=== PATIENT | female | born 1940 | race Caucasian/White ===

== ENCOUNTER 2024-11-15 11:57 | Outpatient (CLI) | payer OTHER, SELFPAY ==
--- OUTSIDE RECORDS SUMMARY | 2024-10-25 19:00 | XMS_ITS | Continuity of Care Document ---
Author Organization [facility] Address [address] [address] [place] [address] Phone Care Team Providers Care Block Splitter Operator Name Role Phone Paola MCKEON, Tenisha Unavailable Unavailable Allergies, Adverse Reactions, Alerts Substance Reaction Status Criticality Sulfa (Sulfonamide Antibiotics) Anaphylaxis Shock Acti ve No Information morphine Rash Active No Information WARFARIN SODIUM Bleeding Active No Informati on codeine Reaction Unknown Active No Informat ion Medications Medication Instructions Dosage Effective Dates (start - stop) Status Comments clopidogrel 75 mg tablet take 1 tablet by oral route every day as needed 75 MG - Active furosemide 20 mg tablet take 1 tablet by oral route every day as needed 20 MG - Active nystatin 50 million unit oral powder take ([id number]) by oral route 4 times every day in 4-6 ounces of water as needed - Active krill oil 1,000 mg-170 mg-50 mg-80 mg capsule - Active Multivitamin With Fluoride 0.5 mg chewable tablet - Active PreserVision AREDS 14,320 unit-226 mg-200 unit capsule - Active Vitamin D3 1,000 unit capsule take 1 Capsule by Oral route every day 1 Capsule - Active flumazenil 0.1 mg/mL intravenous solution - Active amoxicillin 250 mg/5 mL oral suspension take 5 milliliter by oral route every 8 hours 250 MG - Active ascorbic acid (vitamin C) 1,000 mg tablet take 1 by Oral route every day 1 - Active aspirin 81 mg tablet,delayed release take 1 tablet by oral route every day 81 MG - Active Procedures Procedure Date Subsqt Inpt Moderate Ugi Endo; W/bx 1/mx Init Inpt E&M Moderate Subsqt Hosp-da E&m Stable 15 M 20 Init Hosp-da E&m Mod Severity 0 Ugi Endo; Dx W/wo Collec Specm 20 Colonoscopy Flex; Dx (sep Pro) 20 Ugi Endo; W/bx 1/mx Offic/outpt E&m Estab Minor Ugi Endo; W/balloon Dilat Esop 17 Offic Cons New/estab Mod Advance Directives Directive Yes / No Effective Date File Name No Information Encounters Encounter Description Practice Location Reason(s) For Visit Diagnoses Date Provider Providers Copied on Encounter Subsqt Inpt Moderate [facility] [place], [address] [address], [place], [id number], [place] tel:[phone] [facility] No Information 5 Paola Steven. [address] [place] [address], [address], [id number], [place]. tel:[phone] Referring Provider: Tenisha Guevara EP TECH, [address] [place] [address], [facility] [place], [address] . tel:[phone] [facility], [address] [address], [place], [id number], [place] tel:[phone] [facility] No Information 5 Min MD Vazquez. [address] [place] [address], [facility] [address], [place], [address], [place]. tel:[phone] Referring Provider: George PARISH X, [address] [place] [address] [address], [facility] [place], [address] . tel:[phone] Init Inpt E&M Moderate [facility], [address] [address], [place], [id number], [place] tel:[phone] [facility] No Information 5 Constantin Harrington. [address] [facility], [address], [id number], [place]. [phone] Referring Provider: Janelle Crawford MD, [address] [place], [address]. tel:[phone] [facility], [address] [address], [place], [address], [place] tel:[phone] [facility] 0 Ibrahima Woods. [address] [place] [address], [id number], [place]. tel:[phone] Subsqt Hosp-da E&m Stable 15 M [facility], [address] [address], [place], [address], [place] tel:[phone] [facility] No Information 0 Ibrahima Woods. [facility] [address], [place], [id number], [place]. tel:[phone] Referring Provider: Zoey Maldonado DO, [address], [place], [address]. tel:[phone] Init Hosp-da E&m Mod Severity [facility], [address] [address], [place], [id number], [place] tel:[phone] [facility] No Information 0 Ibrahima Woods. [address] [facility], [facility] [address], [place], [address], [place]. tel:[phone] Referring Provider: Zoey Maldonado DO, [address], [place], [address]. tel:[phone] [facility], [address] [address], [place], [address], [place] tel:[phone] [facility] No Information 201 7 Randi Romero. [address] [place] [address], [address], [id number], [place]. tel:[phone] Referring Provider: Janelle Crawford MD, [address] [place] [address], [address]. tel:[phone] [facility], [address] [address], [place], [address], [place] tel:[phone] [facility] Esophageal dysphagia 7 No Information Offic/outpt E&m Estab Minor [facility], [address] [address], [facility] [place], [address], [place] tel:[phone] [facility] GI Symptoms or Concerns (chief complaint) Esophageal strictureDiet nery counseling and surveillanceE ssential (primary) hypertension 7 No Information Referring Provider: Janelle Crawford MD, [address] [place] [address], [address]. tel:[phone] [facility], [address] [address], [facility] [place], [address], [place] tel:[phone] [facility] No Information Jul- 7 Fran Marshall. [address] [place] [address], [facility] 500, [place], [place], [id number], [place]. tel:[phone] Referring Provider: Renetta Peters MD, [facility] 500, [place], [address] . tel:[phone] Offic Cons New/estab Mod [facility], [address] [address], [facility] [place], [address], [place] tel:[phone] [facility] GI Symptoms or Concerns (chief complaint) Esophageal dysphagiaDiet nery counseling and surveillanceE ssential (primary) hypertension 7 Fidencio Oconnor. [facility], [facility] 500, [place], [place], [id number], [place]. tel:[phone] Referring Provider: Janelle Crawford MD, [address] [place] [address], [address]. tel:[phone] Family History Family Member Type Diagnosis Age At Onset Daughter Problem (finding) Mother Problem (finding) diabetes mellitus type 2 Father Problem (finding) malignant neoplasm of l dianne Brother Problem (finding) Alive and well Sister Problem (finding) Alive and well Daughter Problem (finding) Hepatitis C Immunizations Vaccine Date Status Comments Influenza, injectable, quadr ivalent, preservative free, 3 yrs or older administered Source : Other Provider Pneumococcal conjugate PCV 13 administere d Source: Other Provider Pneumo (2 yrs or older)(PPV) administered Source: Other Provider Payers Payer name Insurance type Covered green party ID Authorjoaquina erick(s) Jacki [facility] 16 [id number] Social History Type Description Quantity Date Captured Comments Sex Female Smoking Status No Information Chief Complaint And Reason For Visit No Information Reason For Referral Reason For Referral No Information Plan Of Treatment Date Type Action Status Goal Lifestyle education regardin g diet completed Goal Lifestyle education regardin g diet completed Referral Ordered: CT Enterography WITHOUT And WITH Contrast Appointment date/timeframe: 11/27/2019 ordered Referral Ordered: EGD With Dilation Appointment date/timeframe: 07/27/2016 ordered History Of Present Illness Encounter Date Complaint History Of Prese nt Illness GI Symptoms or Concerns Ms. Ming dacosta is a very pleasant 75-year-old female who presents in followup regarding dysphagia.She was last seen in the office in July [address] Nicolas. At that time, she was having progressive dysphagia symptoms, especially to pills and solid foods. This has been going on for over four years. She apparently did see an global supply chain director and did have a laryngoscope completed, however, those records are not available. 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 There were no obvious mucosal irregularity or ulceration. There was an episode of coughing with aspiration of contrast during the esophagram and therefore, she had a video swallow with speech done and they did not see any asp GI Symptoms or Concerns This is a 75-year-old woman who presents with chronic dysphagia. She reports symptoms initially developed in 2012. She apparently underwent some evaluation locally, although surprisingly enough was never recommended to have endoscopy. She believes she may have had an esophagram, although I do not have those records. She developed dysphagia to pills initially, but then now it has not been increasing in frequency and with more and more foods and medications. She reports seeing an global supply chain director at one point who said she did not have any problems. They apparently did a laryngoscopy. She has reduced oral intake and has lost about five pounds in the past two weeks. There is no bleeding or heartburn. She has never had significant reflux issues. 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 She was treated with Plavix for three months, but has since stopped it. She is not on Functional Status Date Functional Assessmen t No Information Instructions Date Instruction Additional Infor travis EGD With Dilation Related to Dys phagia, pharyngoesophageal phase EGD With Dilation Related to Dys phagia, pharyngoesophageal phase Trouble swallowing h as improved after EGD with dilation. This is great. Please let us know if symptoms return.Please follow up with PCP regarding collar bone Related to Esophageal stricture Lifestyle education regarding di et Related to Dietary counseling and surveillance We will proceed with endoscopy at the hospital given her morbid obesity and her comorbidities. We discussed the possibility, given the cervical narrowing that is scoped and may be difficult to pass. I do not feel that there is enough evidence for a Zenker's to contraindicate endoscopy at this point. If we are unable to pass a regular endoscope through this area, we may have to reschedule with the pediatric endoscope, or we could consider fluoroscopy at the time of the exam to help with visualization. We will take biopsies of anything that is concerning and then perform a dilation if indicated. I will arrange for followup appointment in clinic to review the results and any further testing. We discussed that if there are some abnormalities that warrant CT imaging, that would be reasonable with extension into the neck, given the clavicular finding on exam and I also asked that she inform her pharmacist about her swallowing issues so that her medications can be crushed or given in liquid form if possible. Related to Esophageal dysphagia Lifestyle education regarding di et Related to Dietary counseling and surveillance EGD With Dilation Related to Dys phagia, pharyngoesophageal phase Assessments Type Assessment Date No Information Patient Care Teams Name Effective Dates (start - stop) Status Members No Information
--- OUTSIDE RECORDS SUMMARY | 2024-11-17 00:17 | XMS_ITS | Clinical Summary ---
Author Organization [facility] Address [address] [place] [address] Care Team Providers Care Materials Engineering Technician Name Role Phone Janelle Crawford MD Primary Care Provider + [phone] Hailee Mclean RN Unavailable [facility], [place] Unavailable Loida Carrillo RN Unavailable [facility], [place] Unavailable Allergies Active Allergy Reactions Criticality Noted Date [...] once daily. 10/31/19 25 Active vit C-vit D-tgxctk-fsnu ox-lutein (PRESERVISION) 226-200-5-0.8 qv-trmr-xp-mg cap Take 1 capsule by mouth once [...] she underwent prior gastric bypass, Geovanna-en-Y at [facility] in the 1979's. -per chart review, [...] Overview (06/01/2023): -s/p Geovanna-en-Y gastric bypass in [address] [place] [address] Iron deficiency anemia 02/26/202106/19 Iron deficiency anemia [...] Encounters Date Type Department Care Team Description 11/16/19 25 Office Visit [facility] [address] [place] [phone] Treat, Viviane Trujillo DO Telehealth ( encounter. [place]. ) 11/08/19 25 Lab Requisition [facility] [phone] Unknown, Doctor 11/07/19 25 Home Care Visit [facility] [address] [place] [phone] Hanh Horn RN CARE COORDINATION 10/26/19 25 10:38 AM CDT - 10/26/19 25 11:10 AM CDT Surgery [facility] [address] [place], [place] [id number] George Stuart MD ESOPHAGOGASTRODUODENOSCOPY WITH BIOPSY 10/26/19 25 10:24 AM CDT Anesthesia Event [facility] [address] [place] [address] Khadra Merchant MD Zimmerman, Anna A, CRNA 10/25/19 25 Home Care Visit [facility] [address] [place] [address] Hanh Horn RN SN - OASIS TRANSFER 10/24/19 25 1:00 AM CDT - 10/31/19 25 1:30 PM CDT Hospital Encounter [facility] [address] [place] [address] [facility], [facility] Hospitalists Of [facility], MD Sg Sultana, MD Deion Aguilar, Ioana Leary MD Deep vein thrombosis (DVT) of proximal lower extremity, unspecified chronicity, unspecified laterality (HC) (Primary Dx); Weight loss, unintentional; Fungal esophagitis; Esophageal stenosis Discharge Disposition: Detention Facility 10/24/19 Home Care Visit [facility] [address] [place] [phone] Hanh Horn RN CARE TRANSITION NOTE 10/23/19 7:28 PM CDT - 10/23/19 11:52 PM CDT Emergency [facility] [address] [place] [address] Susie Bang PA Katzung, Sara Cazares MD Dysphagia, unspecified type (Primary Dx); Hypokalemia Discharge Disposition: Short Term/PPS Hosp 10/23/19 Travel 10/21/19 Telephone [facility] [address] [place] [address] Janelle Crawford MD Error-please disregard 10/21/19 Telephone [facility] [address] [place] [address] Joe Elliott, CALIBRATION LABORATORY TECHNICIAN Home Care (Worsening Dysphagia ) 10/20/19 12:15 PM CDT Home Care Visit [facility] [address] [place] [phone] Joe Elliott, CALIBRATION LABORATORY TECHNICIAN CALIBRATION LABORATORY TECHNICIAN - INITIAL ASSESSMENT 10/18/19 2:30 PM CDT Home Care Visit [facility] [address] [place] [phone] Patricia Tavarez, PT PT - ZAX-QSGI-LVPT ASSESSMENT 10/18/19 12:30 PM CDT Home Care Visit [address] [phone] Hanh Horn RN SN - HOME VISIT 10/14/19 Home Care Visit [address] [phone] Paula Cole, PT CARE COORDINATION 05/16/20 25 Nurse Triage [facility] [address] [place] [address] Janelle Crawford MD Appointment 10/13/19 25 Home Care Visit [facility] [address] [place] [address] Paula Cole PT CARE COORDINATION 10/12/19 25 1:45 PM CDT Office Visit [address] [phone] Janelle Crawford MD Hospital F/U 10/12/19 25 Travel 10/12/19 25 Home Care Visit [facility] [address] [place] [phone] Hanh Horn, STEFANIE CARE COORDINATION 10/11/19 25 11:30 AM CDT Home Care Visit [facility] [address] [place] [address] Hanh Horn, RN SN - OASIS START OF CARE 10/11/19 25 Telephone [facility] [address] [place] [address] Hanh Horn, body die maker (Leg edema) 10/11/19 25 Plan of Care Documentation [facility] [address] [place] [phone] 10/10/19 25 Transcribe Orders [facility] [address] [place] [phone] Jose Luis Lozano DO 10/10/19 25 Patient Outreach [address] [phone] Ella Morrison, RN Primary RN Care Management (Hospital DC: 10/07/24/LACE: 64/Dysphagia ); Hospital F/U 10/06/19 25 11:31 PM CDT - 10/08/19 12:58 PM CDT Hospital Encounter [facility] [address] [place] [address] [facility], [facility] Hospitalists Of [place], MD Hallie Small Krishna Kumar K[place], MBBS Residents, A2 S/P TAVR (transcatheter aortic valve replacement) (Primary Dx); Dysphagia, unspecified type; Weight loss, unintentional Discharge Disposition: Home Health 10/06/19 12:06 PM CDT - 10/06/19 10:30 PM CDT Emergency [facility] [address] [facility] [place] [address] Adrian Jose MD Hospitalist, [facility] Jean-Baptiste, Dmitriy Austin, Tricia Parra DO Dysphagia, unspecified type (Primary Dx) Discharge Disposition: Short Term/PPS Hosp 10/06/19 Travel 09/16/19 Telephone [facility] [address] [place] [address] Janelle Crawford MD Results 09/14/19 9:35 AM CDT Office Visit [facility] [address] [place] [address] Janelle Crawford MD Leg Swelling 09/14/19 25 Travel 09/02/19 Nurse Triage [facility] [address] [place] [address] Janelle Crawford MD Leg Swelling (Bilateral severe ) 09/02/[address] [place] [address] Janelle Crawford MD Error-please disregard 08/30/19 Telephone [facility] [address] [place] [address] Tasha Christian DO Chart Review 08/25/19 25 2:10 PM CDT Office Visit [address] [place] [address] Janelle Crawford MD Hospital F/U (ED DOS: 08/16/2024) 08/25/19 25 Travel from Last 3 Months Immunizations [...] on file Legal Sex Female 5:23 AM CENTER CONSULTANT Gender Identity Not on file Sexual Orientation Not on file 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 Not on file Not on file Not [...] CDT Office Visit [facility] [address] [place] [phone] Norman Mckeon MD [address] [place] [address] 12/14/2024 12:30 PM CDT Office Visit [facility] [address] [place] [address] Vivek Cox MD [address] [place] [address] 12/14/2024 3:00 PM CDT Orders Only [facility] [address] [place] [address] 02/27/2025 Cardiac Device Check [facility] [phone] Health Maintenance Due Date Last Done Comments [...] this topic Medical Devices Implanted Type Area Analyzer Sales Device Identifier Shelf Expiration Date Model / Serial / Lot Dual Chamber Pacemaker Implanted:2015 by Virgil Hernandez MD (Quantity not on file) Standard Pacemaker Medtronic ADAPTA [id number] / [id number] / Valve Aortic 26mm Nicolle 3 Transcatheter Sys Commander - [id number] Implanted:Qty: 1 on 02/05/2016 by Manish Flores MD at [facility] Aortic Valve [employer] Paul 10/16/2016 [id number]# / [id number] / Procedures Procedure Name Priority Date/Time Associated [...] 11:10 AM CDT STEINER (dyspnea on exertion) XR DXA BONE DENSITY 2 SITES AXIAL Routine 03/04/2022 2:22 PM CDT Menopause from Last 3 Months or Most Recently Relevant to Health Maintenance Results * (ABNORMAL) CBC WITH AUTO DIFFERENTIAL (11/08/2024 8:02 AM CDT) Only the most recent of2 resultswithin the time period is included. WHITE BLOOD COUNT 10.7 4.5 - 11.0 thou/cu mm 11/08/2024 9:03 AM [facility] RED BLOOD COUNT 4.30 4.00 - 5.20 mil/cu mm 11/08/2024 9:03 AM [facility] HEMOGLOBIN 13.5 12.0 - 16.0 g/dL 11/08/2024 9:03 AM [facility] HEMATOCRIT 40.9 33.0 - 51.0 % 11/08/2024 9:03 AM [facility] MCV 95 80 - 100 fL 11/08/2024 9:03 AM [facility] MCH 31.4 26.0 - 34.0 pg 11/08/2024 9:03 AM [facility] MCHC 33.0 32.0 - 36.0 g/dL 11/08/2024 9:03 AM [facility] RDW 15.3 11.5 - 15.5 % 11/08/2024 9:03 AM [facility] PLATELET COUNT 54(L) 140 - 440 thou/cu mm 11/08/2024 9:03 AM [facility] MPV 10.9 6.5 - 11.0 fL 11/08/2024 9:03 AM [facility] % NEUT 74.9 % 11/08/2024 9:03 AM [facility] % LYMPH 19.5 % 11/08/2024 9:03 AM [facility] % MONO 4.9 % 11/08/2024 9:03 AM [facility] % EOS 0.5 % 11/08/2024 9:03 AM [facility] % BASO 0.2 % 11/08/2024 9:03 AM [facility] ABSOLUTE NEUTROPHILS 8.0(H) 1.7 - 7.0 thou/cu mm 11/08/2024 9:03 AM [facility] ABSOLUTE LYMPHOCYTES 2.1 0.9 - 2.9 thou/cu mm 11/08/2024 9:03 AM [facility] ABSOLUTE MONOCYTES 0.5 <0.9 thou/cu mm 11/08/2024 9:03 AM [facility] ABSOLUTE EOSINOPHILS 0.1 <0.5 thou/cu mm 11/08/2024 9:03 AM [facility] ABSOLUTE BASOPHILS 0.0 <0.3 thou/cu mm 11/08/2024 9:03 AM [facility] Blood BLOOD SPECIMEN / Unknown Butterfly / Unknown 11/08/2024 8:02 AM CDT 11/08/2024 8:13 AM T us Doctor Unknown HEMATOLOGY Final Result [facility] [address] [place] [address] * (ABNORMAL) PLATELET ESTIMATE (11/08/2024 8:02 AM CDT) Only the most recent of12 resultswithin the time period is included. PLATELET ESTIMATE Platelets are clumped and appear decreased(A) Adequate, No estimate 11/08/2024 9:03 AM [facility] Blood BLOOD SPECIMEN / Unknown Butterfly / Unknown 11/08/2024 8:02 AM CDT 11/08/2024 8:13 AM CDT us Doctor Unknown HEMATOLOGY Final Result [facility] [address] [place] [address] * (ABNORMAL) BASIC METABOLIC PANEL (11/08/2024 8:02 AM CDT) Only the most recent of4 resultswithin the time period is included. SODIUM 139 136 - 145 mmol/L 11/08/2024 8:38 AM [facility] POTASSIUM 4.4 3.5 - 5.1 mmol/L 11/08/2024 8:38 AM [facility] CHLORIDE 106 98 - 107 mmol/L 11/08/2024 8:38 AM [facility] CO2,TOTAL 20(L) 22 - 29 mmol/L 11/08/2024 8:38 AM [facility] ANION GAP 13 5 - 18 11/08/2024 8:38 AM [facility] GLUCOSE 73 70 - 99 mg/dL 11/08/2024 8:38 AM [facility] CALCIUM 8.3(L) 8.8 - 10.4 mg/dL 11/08/2024 8:38 AM [facility] Comment: Reference ranges for this test were updated on 04/04/2024 to reflect our healthy population more accurately. Reference range changes are not retroactively applied to results, but previous results using the same methodology can be interpreted in the context of the new reference range. BUN 20 8 - 23 mg/dL 11/08/2024 8:38 AM [facility] CREATININE 0.67 0.50 - 0.90 mg/dL 11/08/2024 8:38 AM [facility] BUN/CREAT RATIO 30(H) 10 - 20 8:38 AM CDT [facility] eGFR 85(L) >90 mL/min/1. 73m2 11/08/2024 8:38 AM CDT [facility] Comment:As of 2021, eG FR is [...] Unknown CHEMISTRY Final Result Performing Organization Address City/[facility]/ZIP Co de Phone Number [facility] [address] [place] [address] * (ABNORMAL) PLATELET COUNT (10/30/2024 7:10 AM CDT) Only the most recent of9 resultswithin the time period is included. PLATELET COUNT 124(L) 140 - 440 thou/cu mm 10/30/2024 9:16 AM CDT [facility] MPV 10/30/2024 9:16 AM CDT [facility] Comment:Unable to be determi noe Blood BLOOD SPECIMEN / Unknown Butterfly / Unknown 10/30/2024 7:10 AM CDT 10/30/2024 7:39 AM CDT Bibiana Bettencourt MD HEMATOLOGY Final Res ult [facility] [address] [place] [address], * HEMOGLOBIN (10/30/2024 7:10 AM CDT) Only the most recent of8 resultswithin the time period is included. HEMOGLOBIN 13.2 12.0 - 16.0 g/dL 10/30/2024 9:16 AM CDT [facility] MCV 93 80 - 100 fL 10/30/2024 9:16 AM CDT [facility] Blood BLOOD SPECIMEN / Unknown Butterfly / Unknown 10/30/2024 7:10 AM CDT 10/30/2024 7:39 AM CDT us Bibiana Bettencourt MD HEMATOLOGY Final Res ult Performing Organization Address [facility] Co de Phone Number [facility] [address] [place] [address], [place] * (ABNORMAL) APTT (10/30/2024 7:10 AM CDT) Only the most recent of21 resultswithin the time period is included. APTT 69(H) 25 - 36 sec 10/30/2024 7:58 AM CDT [facility] Blood BLOOD SPECIMEN / Unknown Butterfly / Unknown 10/30/2024 7:10 AM CDT 10/30/2024 7:39 AM CDT Narrative [facility] - 10/30/2024 7:58 AM CDT Therapeutic Range: 59-89 seconds us Bibiana Bettencourt MD HEMATOLOGY Final Res ult Performing Organization Address [facility] Co de Phone Number [facility] [address] [place] [address], [place] * GLUCOSE METER (10/30/2024 6:30 AM CDT) Only the most recent of42 resultswithin the time period is included. GLUCOSE METER 78 65 - 100 mg/dL 10/30/2024 10:52 AM CDT [facility] Blood BLOOD SPECIMEN / Unknown 10/30/2024 6:30 AM CDT 10/30/2024 10:52 AM CDT us Bibiana Bettencourt MD CHEMISTRY Final Res ult Performing Organization Address [facility] Co de Phone Number [facility] [address] [place] [address], [place] * SCAN-CARDIAC STRIP (10/30/2024 2:01 AM CDT) us Scanner OTHER Final Result * (ABNORMAL) WBC AM (10/29/2024 12:04 PM CDT) Only the most recent of8 resultswithin the time period is included. WHITE BLOOD COUNT 12.5(H) 4.5 - 11.0 thou/cu mm 10/29/2024 3:[address] [facility] NRBC 0.0 % 10/29/2024 3:53 PM CDT [facility] ABS NRBC 0.0 thou /cu mm 10/29/2024 3:53 PM CDT [facility] Blood BLOOD SPECIMEN / Unknown Venipuncture / Unknown 10/29/2024 12:04 PM CDT 10/29/2024 12:55 PM CDT us Bibiana Bettencourt MD HEMATOLOGY Final Res ult [facility] [address] [place] [address], * SCAN-CARDIAC STRIP (10/29/2024 6:00 AM CDT) [...] LABORATORY Final Res ult Performing Organization Address City/[facility]/ZIP Co de Phone Number [facility] [address] [place] [address], * (ABNORMAL) Sodium AM (10/28/2024 8:33 AM CDT) Only the most recent of3 resultswithin the time period is included. SODIUM 133(L) 136 - 145 mmol/L 10/28/2024 9:09 AM CDT [facility] Blood BLOOD SPECIMEN / Unknown Line/Port / Unknown 10/28/2024 8:33 AM CDT 10/28/2024 8:45 AM CDT us Bibiana Bettencourt MD CHEMISTRY Final Res ult Performing Organization Address [facility] Co de Phone Number [facility] [address] [place] [address], * SCAN-CARDIAC STRIP (10/28/2024 12:58 AM CDT) [...] 10/27/24. EF 67% on 12/15/2023. AP 5.1%, CRUSHER AND BLENDER OPERATOR 0.4%. LRL at 50 bpm. Estimated 7.5 years battery longevity remaining. Indication for Pacemaker: AV Node dysfunction; new LBBB post TAVR Primary MD: Janelle Crawford MD Primary Radar Repairer: cL Emerson MD Implanting MD: Virgil Hernandez MD DEVICE DATA Analyzer Sales Medtronic: Model: Adapta ADDRL Implant Date 02/10/2016 LEAD DATA Atrial Lead: Analyzer Sales Medtronic: Model: 5076 - 45 cm Implant Date 02/10/2016 RV Lead: Analyzer Sales Medtronic: Model: 5076 - 52 cm Implant Date 02/10/2016 Visit [facility]: [facility] Reason For Evaluation: MD Request- low heart [...] months via [employer] (manual send) with annual [place] each September. Meri Torres, STEFANIE Nurse Clinician II I Pacemaker/ICD Clinic [phone] us Patel Delgado MD CARDIAC SERVICES OR D Final Result * SCAN-CARDIAC STRIP (10/27/2024 11:02 AM CDT) us Scanner OTHER Final Result * (ABNORMAL) TROPONIN T (HS) ONE TIME (10/27/2024 9:53 AM CDT) Only the most recent of2 resultswithin the time period is included. TROPONIN T HS 52(H) 6-10 ng/L ng/L 10/27/2024 10:[address] [facility] Blood BLOOD SPECIMEN / Unknown Non-Lab Venipuncture / Unknown 10/27/2024 9:53 AM CDT 10/27/2024 10:02 AM CDT Narrative [facility] - 10/27/2024 10:28 AM CDT [...] MD CHEMISTRY Final Result Performing Organization Address City/[facility]/ZIP Co de Phone Number [facility] [address] [place] [address], [place] * Lactate, Venous - GUIDE DELEGATE (10/27/2024 9:53 AM CDT) Only the most recent of2 resultswithin the time period is included. [facility] LACTATE,VENOUS 1.8 0.5 - 2.0 mmol/L 10/27/2024 10:26 AM CDT [facility] Blood BLOOD SPECIMEN / Unknown Non-Lab Venipuncture / Unknown 10/27/2024 9:53 AM CDT 10/27/2024 10:02 AM CDT Lisette Carson MD CHEMISTRY Final Resul t Performing Organization Address [facility]/ZIP Co de Phone Number [facility] [address] [place] [address], [place] * AMMONIA (10/27/2024 9:53 AM CDT) Only the most recent of2 resultswithin the time period is included. Pathologist [facility] AMMONIA 28 16 - 60 umol/L 10/27/2024 10:26 AM CDT [facility] Blood BLOOD SPECIMEN / Unknown Non-Lab Venipuncture / Unknown 10/27/2024 9:53 AM CDT 10/27/2024 10:02 AM CDT Narrative [facility] - 10/27/2024 10:26 AM CDT 1. Sulfasalazine and its metabolite Sulfapyridine at therapeutic concentrations may lead to falsely low results. 2. Temozolomide and its metabolite MTIC may lead to falsely elevated results, and its metabolite AIC may lead to falsely low results. us Lisette Carson MD CHEMISTRY Final Resul t [facility] [address] [place] [address], * (ABNORMAL) Arterial Blood Gas - GUIDE DELEGATE (10/27/2024 9:44 AM CDT) PH, ARTERIAL 7.44 7.35 - 7.45 10/27/2024 10:04 AM CDT [facility] PCO2, ARTERIAL 35 32 - 45 mmHg 10/27/2024 10:04 AM [facility] PO2, ARTERIAL 121(H) 83 - 108 mmHg 10/27/2024 10:04 AM [facility] HCO3, ARTERIAL 24 21 - 28 mmol/L 10/27/2024 10:04 AM [facility] BASE EXCESS, ARTERIAL 0.1 -2.0 - 3.0 10/27/2024 10:04 AM [facility] O2 SATURATION, ARTERIAL 100(H) 94 - 98 % 10/27/2024 10:04 AM T [facility] INSPIRED O2 6 10/27/2024 10:04 AM [facility] Comment: Unit of Measure: Liters (L) if <=20; Percent (%) if >20 This is an appended report. These results have been appended to a previously final verified report. PATIENT TEMPERATURE 37.0 Degrees C 10/27/2024 10:04 AM CDT [facility] Blood ARTERIAL BLOOD SPECIMEN / Unknown Non-Lab Venipuncture / Unknown 10/27/2024 9:44 AM CDT 10/27/2024 9:51 AM CDT us Bibiana Bettencourt MD CHEMISTRY Edited Re sult - Final Performing Organization Address City/[facility] Co de Phone Number [facility] [address] [place] [address], [place] * 12 Lead EKG - GUIDE DELEGATE (10/27/2024 9:37 AM CDT) Only the most recent of2 resultswithin the time period is included. Interpretation [...] NOW QTc 405 ms BEYOND NOW P Colony 37 degrees BEYOND NOW R Colony -49 degrees BEYOND NOW T Colony 33 degrees BEYOND NOW 10/27/2024 9:37 AM CDT 11/01/2024 12:25 PM CDT us Bibiana Bettencourt MD EKG ORD Final Res ult Performing Organization Address City/[facility] Co de Phone Number BEYOND NOW [place], [place] * POTASSIUM (10/27/2024 7:42 AM CDT) Only the most recent of9 resultswithin the time period is included. POTASSIUM 3.7 3.5 - 5.1 mmol/L 10/27/2024 8:[address] [facility] Blood BLOOD SPECIMEN / Unknown Venipuncture / Unknown 10/27/2024 7:42 AM CDT 10/27/2024 7:48 AM CDT us Bibiana Bettencourt MD CHEMISTRY Final Res ult Performing Organization Address City/[facility]/ZIP Co de Phone Number [facility] [address] [place] [address], [place] * MAGNESIUM (10/27/2024 7:42 AM CDT) Only the most recent of8 resultswithin the time period is included. MAGNESIUM 1.6 1.6 - 2.4 mg/dL 10/27/2024 8:15 AM CDT [facility] Blood BLOOD SPECIMEN / Unknown Venipuncture / Unknown 10/27/2024 7:42 AM CDT 10/27/2024 7:48 AM CDT Bibiana Bettencourt MD CHEMISTRY Final Res ult Performing Organization Address [facility] Co de Phone Number [facility] [address] [place] [address], [place] * (ABNORMAL) COMP METABOLIC PANEL (10/27/2024 7:42 AM CDT) SODIUM 132(L) 136 - 145 mmol/L 10/27/2024 10:07 AM CDT [facility] POTASSIUM 3.7 3.5 - 5.1 mmol/L 10/27/2024 10:07 AM CDT [facility] CHLORIDE 100 98 - 107 mmol/L 10/27/2024 10:07 AM CDT [facility] CO2,TOTAL 22 22 - 29 mmol/L 10/27/2024 10:07 AM CDT [facility] ANION GAP 10 5 - 18 10/27/2024 10:07 AM CDT [facility] GLUCOSE 106(H) 70 - 99 mg/dL 10/27/2024 10:07 AM CDT [facility] CALCIUM 7.4(L) 8.8 - 10.4 mg/dL 10/27/2024 10:07 AM CDT [facility] Comment: Reference ranges for this test were updated on 04/04/2024 to reflect our healthy population more accurately. Reference range changes are not retroactively applied to results, but previous results using the same methodology can be interpreted in the context of the new reference range. BUN 14 8 - 23 mg/dL 10/27/2024 10:07 AM T [facility] CREATININE 0.72 0.50 - 0.90 mg/dL 10/27/2024 10:07 AM T [facility] BUN/CREAT RATIO 19 10 - 20 10:07 AM T [facility] eGFR 82(L) >90 mL/min/1. 73m2 10/27/2024 10:07 AM [facility] Comment:As of 2021, eG FR is calculated by the CKD-EPI creatinine equation without race adjustment. eGFR can be influenced by muscle mass, exercise, and diet. The reported eGFR is an estimation only and is only applicable if the renal function is stable. ALBUMIN 2.1(L) 4.0 - 4.9 g/dL 10/27/2024 10:07 AM T [facility] PROTEIN,TOTAL 3.8(L) 6.0 - 8.0 g/dL 10/27/2024 10:07 AM T [facility] BILIRUBIN,TOTAL 0.7 0.0 - 1.2 mg/dL 10/27/2024 10:07 AM T [facility] ALK PHOSPHATASE 63 35 - 104 IU/L 10/27/2024 10:07 AM [facility] ALT (SGPT) 20 10 - 35 IU/L 10/27/2024 10:07 AM T [facility] LABORATORY AST (SGOT) 27 10 - 35 IU/L 10/27/2024 10:07 AM T [facility] Blood BLOOD SPECIMEN / Unknown Venipuncture / Unknown 10/27/2024 7:42 AM CDT 10/27/2024 7:48 AM CDT us Lisette Carson MD CHEMISTRY Final Resul t Performing Organization Address City/[facility]/ZIP Co de Phone Number [facility] [facility] [address] [place] [address], [place] * EXTRA TUBE LIGHT GREEN (10/25/2024 12:52 PM CDT) Blood BLOOD SPECIMEN / Unknown Butterfly / Unknown 10/25/2024 12:52 PM CDT 10/25/2024 12:58 PM CDT us Doctor Unknown LABORATORY Final Result Performing Organization Address City/[facility] Co de Phone Number [facility] [address] [place] [address], [place] * PATH TISSUE EXAM (10/25/2024 10:35 AM CDT) Case Report Pathology Report Case: [id number] Authorizing Provider: George Stuart MD Collected: 10/25/2024 1035 Ordering Location: [facility] Received: 10/25/2024 1108 [facility] Pathologist: Natalya Villar MD Specimen: Esophagus, esophgus biopsy 10/27/2024 8:38 AM CDT [facility] ENTRAL LABORATORY Final Diagnosis A) ESOPHAGUS, BIOPSY: 1. Margarita esophagitis 2. 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 Negative for reflux changes and eosinophilic esophagitis 4. Negative for columnar mucosa 10/27/2024 8:38 AM CDT [facility] ENTRAL LABORATORY at 0838 CDT Clinical Information Dysphagia. Upper GI endoscopy showed likely Margarita esophagitis. 10/27/2024 8:38 AM CDT [facility] ENTRAL LABORAT[facility] Gross Description A) Received in formalin is a lott mucosal fragment measuring 2 mm in greatest dimension, which is entirely submitted in one cassette. It is labeled with the patient's name and designated esophagus biopsy. Samanthalila Maya 10/25/2024 2:42 PM 10/27/2024 8:38 AM CDT [facility] ENTRAL LABORATORY Microscopic Description The final diagnosis is based on microscopic examination of appropriate sections of all specimens. 10/27/2024 8:38 AM CDT [facility]-C ENTRAL LABORATORY Additional Information Interpreted at [facility], Central Laboratory - [address] [facility] [address], [place] [address] 10/27/2024 8:[address] [facility] LABORATORY-C ENTRAL LABORATORY Tissue SPECIMEN FROM ESOPHAGUS / Unknown 10/25/2024 10:35 AM CDT 10/25/2024 11:08 AM CDT us George Stuart MD PATHOLOGY/CYTOLOGY Final Re sult [facility]-CENTRAL LABORATORY [address] [place] [address], [place] * ENDOSCOPY (10/25/2024 10:08 AM CDT) 10/25/2024 10:0 8 AM CDT Narrative Transcriptions George Stuart MD - 10/25/2024 10:41 AM CDT [facility] Patient Name: Kajal Francois Procedure Date: 10/25/2024 Gender: Female Date of : 1940 Admit Type: Inpatient Procedure: Upper GI endoscopy Proceduralist: George Stuart MD - [facility] Indications/Pre-Op Diagnosis: Dysphagia Medications: Propofol per Anesthesia Procedure Description: Risk of bleeding, infection, perforation, need for surgery and alternatives discussed. The endosocpe [id number] was introduced through the mouth, and advanced [...] 7.32 - 7.43 10/24/2024 10:05 PM CDT [facility] TRAL LABORATORY PCO2, VENOUS 37(L) 41 - 51 mmHg 10/24/2024 10:05 PM CDT [facility] LAB[facility] PO2, VENOUS 58(H) 35 - 40 mmHg 10/24/2024 10:05 PM CDT [facility] TRAL LAB[facility] HCO3,VENOUS 26 22 - 29 mmol/L 10/24/2024 10:05 PM CDT [facility] TRAL LAB[facility]AT[facility] BASE EXCESS, VENOUS, POCT 1.8 -2.0 - 3.0 10/24/2024 10:05 PM CDT [facility] TRAL LABORATORY O2 SATURATION, VENOUS 93(H) 70 - 75 % 10/24/2024 10:05 PM CDT [facility] LAB[facility] PATIENT TEMPERATURE 37.0 Degrees C 10/24/2024 10:05 PM CDT [facility] TRAL LAB[facility]ATORY Blood VENOUS BLOOD SPECIMEN / Unknown Diversion Device / Unknown 10/24/2024 9:51 PM CDT 10/24/2024 9:56 PM CDT us Bibiana Bettencourt MD CHEMISTRY Final Res ult [facility] [address] [place] [address], [place] * CT HEAD BRAIN WO (10/24/2024 [...] result of the Century Cures Act, medical imaging exams and procedure [...] with bilateral lens implants. Procedure Note Sindy Buckley, - 10/24/2024 For Patients: As a result [...] See Comment U/mL 10/24/2024 7:03 PM CDT [facility] TRAL LABORATORY Blood BLOOD SPECIMEN / Unknown Diversion Device / Unknown 10/24/2024 6:19 PM CDT 10/24/2024 6:31 PM CDT Narrative [facility]CENTRAL LABORATORY - 10/24/2024 7:03 PM CDT [facility]FH [...] 0.15 - 0.25 U/mL Critical: >1.00 U/mL us Bibiana Bettencourt MD HEMATOLOGY Final Res ult Performing Organization Address City/[facility]/ZIP Co de Phone Number [facility] [address] [address], [place] * (ABNORMAL) Creatinine AM (10/24/2024 7:36 AM CDT) Only the most recent of3 resultswithin the time period is included. Pathologist [facility] eGFR 85(L) >90 mL/min/1.7 3m2 10/24/2024 8:45 AM CDT [facility] Comment:As of 2021, eG FR is calculated by the CKD-EPI creatinine equation without race adjustment. eGFR can be influenced by muscle mass, exercise, and diet. The reported eGFR is an estimation only and is only applicable if the renal function is stable. CREATININE 0.67 0.50 - 0.90 mg/dL 10/24/2024 8:45 AM CDT [facility] Blood BLOOD SPECIMEN / Unknown Butterfly / Unknown 10/24/2024 7:36 AM CDT 10/24/2024 8:17 AM CDT us Bibiana Bettencourt MD CHEMISTRY Final Res ult Performing Organization Address City/[facility]/ZIP Co de Phone Number [facility] [address] [place] [address], [place] * (ABNORMAL) CBC W PLT NO DIFF (10/23/2024 4:20 AM CDT) Only the most recent of2 resultswithin the time period is included. [facility] WHITE BLOOD COUNT 10.5 4.5 - 11.0 thou/cu mm 10/23/2024 5:02 AM T [facility] TRAL LABORATORY RED BLOOD COUNT 3.53(L) 4.00 - 5.20 mil/cu mm 10/23/2024 5:02 AM [facility] TRAL LABORATORY HEMOGLOBIN 11.6(L) 12.0 - 16.0 g/dL 10/23/2024 5:02 AM [facility] TRAL LABORATORY HEMATOCRIT 33.6 33.0 - 51.0 % 10/23/2024 5:02 AM [facility] TRAL LABORATORY MCV 95 80 - 100 fL 10/23/2024 5:02 AM T [facility] TRAL LAB[facility]ATORY MCH 32.9 26.0 - 34.0 pg 10/23/2024 5:02 AM [facility] TRAL LAB[facility] MCHC 34.5 32.0 - 36.0 g/dL 10/23/2024 5:02 AM [facility] TRAL LAB[facility]AT[facility] RDW 14.3 11.5 - 15.5 % 10/23/2024 5:02 AM [facility] TRAL LAB[facility] PLATELET COUNT 205 140 - 440 thou/cu mm 10/23/2024 5:02 AM T [facility] TRAL LAB[facility] MPV 11.6(H) 6.5 - 11.0 fL 10/23/2024 5:02 AM [facility] TRAL LAB[facility] NRBC 0.0 % 10/23/2024 5:02 AM T [facility] ABS NRBC 0.0 thou /cu mm 10/23/2024 5:02 AM [facility] TR[facility] Blood BLOOD SPECIMEN / Unknown Venipuncture / Unknown 10/23/2024 4:20 AM CDT 10/23/2024 4:26 AM T us George Carroll MD HEMATOLOGY Final Res ult [facility] [address] [place] [address], [place] * PROTIME-INR (10/23/2024 4:20 AM CDT) Only the most recent of2 resultswithin the time period is included. INR 1.1 <1.3 10/23/2024 4:43 AM CDT [facility] PROTIME 12.4 10.6 - 12.4 sec 10/23/2024 4:43 AM CDT [facility] Blood BLOOD SPECIMEN / Unknown Venipuncture / Unknown 10/23/2024 4:20 AM CDT 10/23/2024 4:26 AM CDT Narrative [facility] - 10/23/2024 4:43 AM CDT Therapeutic [...] seconds if the patient is on UFH. George Carroll MD HEMATOLOGY Final Res ult [facility] [address] [place] [address], [place] * [place] VENOUS LOWER EXTREMITY BILATERAL [...] 8:16 PM CDT) Only the most recent of2 resultswithin the time period is included. ACANTHOCYTES Few 10/22/2024 9:57 PM CDT [facility] ELLIPTOCYTES Few 10/22/2024 9:57 PM CDT [facility] RBC COMMENT Present(A) RBC morphology appears normal, RBC morphology within normal limits for newborns. 10/22/2024 9:57 PM CDT [facility] WBC REACTIVE LYMPHS Present 10/22/2024 9:57 PM CDT [facility] Blood BLOOD SPECIMEN / Unknown Butterfly / Unknown 10/22/2024 8:16 PM CDT 10/22/2024 8:22 PM CDT us Susie LÓPEZ HEMATOLOGY Final R esult [facility] [address] [place] [address] * ECHO TTE COMPLETE WO CONTRAST (10/06/2024 10:53 AM CDT) Pathologist [facility] AORTIC VALVE MEAN PG 14 mmHg EJECTION [...] Tech: PM Referring MD: RAMIN OSBORNE Site: [facility] Reading Location: W Patient Location: Inpatient. Procedure: 2D, Color Doppler [...] . This study was interpreted by an [facility] accredited facility. Final Procedure Note Redd Gallagher MD - 10/06/2024 ECHOCARDIOGRAM KAJAL FRANCOIS : 1940 83 years Study Date: 10/06/2024 9:50:25 AM Gender: F BP: 155/72 mmHg Height: 154.00 cm BSA: 1.68 m Weight: 70.00 kg Tech: PM Referring MD: RAMIN OSBORNE Site: [facility] Reading Location: [facility] Patient Location: Inpatient. Procedure: 2D, Color Doppler [...] . This study was interpreted by an [facility] accredited facility. Final us Ramin Osborne MD ECHO ORD Final Res ult * PACER TOMMIE DUAL CHAMBER WO REPROG (10/06/2024 9:19 AM CDT) Narrative Virgil Hernandez MD - 10/06/2024 9:19 AM CDT Virgil Hernandez MD 10/13/2024 10:43 AM PACEMAKER EVALUATION REPORT 10/06/2024 Summary: Normal pacemaker function. Lead trends stable. No true VT detections. EF 67% on 12/15/2023. AP 21.7%, CRUSHER AND BLENDER OPERATOR 0.3%. Estimated 7.5 years battery longevity remaining. Indication for Pacemaker: AV Node dysfunction; new LBBB post TAVR Primary MD: Janelle Crawford MD Primary Radar Repairer: Lc Emerson MD Implanting MD: Virgil Hernandez MD DEVICE DATA Analyzer [employer] Medtronic: Model: Adapta ADDRL Implant Date 02/10/2016 LEAD DATA Atrial Lead: Analyzer [employer]onic: Model: 5076 - 45 cm Implant Date 02/10/2016 RV Lead: Analyzer [employer]: Model: 5076 - 52 cm Implant Date 02/10/2016 Visit location: [facility] Reason For Evaluation: Request MEASUREMENTS Atrial Sensing - P wave: [...] Routine follow up: Every 4 months via InvenSense (manual send) with annual [place]ahoe each September. Baljit Jo RN Nurse Clinician II [facility] Pacemaker/ICD Clinic [phone] Virgil Hernandez MD CARDIAC SERVICES ORD Fin al Result * PHOSPHORUS (10/06/2024 12:52 AM CDT) PHOSPHORUS 3.3 2.5 - 4.5 mg/dL 10/06/2024 10:[address] [facility] LAB[facility]AT[facility] Blood BLOOD SPECIMEN / Unknown Venipuncture / Unknown 10/06/2024 12:52 AM CDT 10/06/2024 1:06 AM CDT Jose Luis Lozano DO CHEMISTRY Final Result [facility] LABORATORY-CENTRAL LABORATORY [address] [place] [address], [place] * (ABNORMAL) UA W/ SEDIMENT EXAM REFLEXED PER CRITERIA (10/05/2024 2:55 PM CDT) COLOR Yellow Yellow Color 10/05/2024 3:03 PM [facility] CLARITY Clear Clear Clarity 10/05/2024 3:03 PM [facility] SPECIFIC GRAVITY,URINE >=1.030(A) 1.010, 1.015, 1.020, 1.025 10/05/2024 3:03 PM [facility] PH,URINE 5.5 6.0, 7.0, 8.0, 5.5, 6.5, 7.5, 8.5 10/05/2024 3:03 PM [facility] UROBILINOGEN, QUALITATIVE Normal Normal EU/dl 10/05/2024 3:03 PM [facility] PROTEIN, URINE Negative Negative mg/dL 10/05/2024 3:03 PM [facility] GLUCOSE, URINE Negative Negative mg/dL 10/05/2024 3:03 PM [facility] KETONES,URINE Negative Negative mg/dL 10/05/2024 3:03 PM [facility] BILIRUBIN,URI NE Negative Negative 10/05/2024 3:03 PM [facility] OCCULT BLOOD,URINE Negative Negative 10/05/2024 3:03 PM [facility] NITRITE Negative Negative 10/05/2024 3:03 PM [facility] LEUKOCYTE ESTERASE Negative Negative 10/05/2024 3:03 PM [facility] Urine URINE SPECIMEN / Unknown Non-Blood / Unknown 10/05/2024 2:55 PM CDT 10/05/2024 3:00 PM CDT us Adrian Jose MD URINE Final Result Performing Organization Address [facility]/ZIP Co de Phone Number [facility] [address] [place] [address] * COVID-19 MOLECULAR (10/05/2024 2:51 PM CDT) Pathologist [facility] COVID 19 ALLSUBHA MOLECULAR Not detected Not detected 10/05/2024 3:15 PM CDT [facility] TESTING LABORATORY [facility] 10/05/2024 3:15 PM CDT [facility] Comment:Specimen submitted t o [facility] for testing. Other SPECIMEN FROM NASOPHARYNGEAL STRUCTURE / Unknown Non-Blood / Unknown 10/05/2024 2:51 PM CDT 10/05/2024 2:54 PM CDT Adrian Jose MD MICROBIOLOGY Final Result [facility] [address] [place] [address] * INFLUENZA A/B PCR (10/05/2024 2:51 PM CDT) [facility] INFLUENZA A PCR NOT Detected 10/05/2024 3:15 PM CDT [facility] INFLUENZA B PCR NOT Detected 10/05/2024 3:15 PM CDT [facility] Other SPECIMEN FROM NASOPHARYNGEAL STRUCTURE / Unknown Non-Blood / Unknown 10/05/2024 2:51 PM CDT 10/05/2024 2:54 PM CDT Adrian Jose MD MICROBIOLOGY Final Result [facility] [address] [place] [address] * XR CHEST 1 VIEW PORTABLE (10/05/2024 [...] 6-10 ng/L ng/L 10/05/2024 2:00 PM CDT [facility] Blood BLOOD SPECIMEN / Unknown Butterfly / Unknown 10/05/2024 1:23 PM CDT 10/05/2024 1:28 PM CDT Narrative [facility] - 10/05/2024 2:00 PM CDT hs-cTnT [...] low risk in emergency department patient population. us Adrian Jose MD CHEMISTRY Final Result [facility] [address] [place] [address] * TSH WITH REFLEX (10/05/2024 1:23 PM CDT) TSH 2.73 0.27 - 4.20 uIU/mL 10/05/2024 2:00 PM CDT [facility] Blood BLOOD SPECIMEN / Unknown Butterfly / Unknown 10/05/2024 1:23 PM CDT 10/05/2024 1:28 PM CDT [facility] LABORATORY - 10/05/2024 2:00 PM CDT In Adults, TSH values between 5.00 and 10.00 uIU/ml do not necessarily indicate the presence of Hypothyroidism. Correlation with clinical findings such as presence of goiter and/or Thyroperoxidase (TPO) Antibody may be helpful. For more information please refer to DOUGLAS 2004; 291: 228-238. Adrian Jose MD CHEMISTRY Final Result Performing Organization Address City/[facility]/ZIP Co de Phone Number [facility] [address] [place] [address] * ETHANOL SERUM OR PLASMA (10/05/2024 1:23 PM CDT) Pathologist [facility] ETHANOL <0.010 <0.010 g/dL 10/05/2024 2:00 PM CDT [facility] Blood BLOOD SPECIMEN / Unknown Butterfly / Unknown 10/05/2024 1:23 PM CDT 10/05/2024 1:28 PM CDT Adrian Jose MD CHEMISTRY Final Result [facility] [address] [place] [address] * (ABNORMAL) PRO-BNP (10/05/2024 1:23 PM CDT) Only the most recent of2 resultswithin the time period is included. PRO-BNP 1,529(H) <450 pg/mL 10/05/2024 2:04 PM CDT [facility] Blood BLOOD SPECIMEN / Unknown Butterfly / Unknown 10/05/2024 1:23 PM CDT 10/05/2024 1:28 PM CDT [facility] LABORATORY - 10/05/2024 2:04 PM CDT [...] Adrian Jose MD SEND OUTS Final Result [facility] [address] [place] [address] * (ABNORMAL) HEPATIC FUNCTION PANEL (10/05/2024 1:23 PM CDT) ALBUMIN 3.5(L) 4.0 - 4.9 g/dL 10/05/2024 2:00 PM CDT [facility] PROTEIN,TOTAL 5.5(L) 6.0 - 8.0 g/dL 10/05/2024 2:00 PM T [facility] BILIRUBIN,TOTAL 1.2 0.0 - 1.2 mg/dL 10/05/2024 2:00 PM T [facility] BILIRUBIN,DIRECT 0.6(H) 0.0 - 0.2 mg/dL 10/05/2024 2:00 PM T [facility] BILIRUBIN,INDIRE CT 0.6 0.2 - 0.8 mg/dL 10/05/2024 2:00 PM CDT [facility] ALK PHOSPHATASE 104 35 - 104 IU/L 10/05/2024 2:00 PM CDT [facility] ALT (SGPT) 23 10 - 35 IU/L 10/05/2024 2:00 PM CDT [facility] AST (SGOT) 35 10 - 35 IU/L 10/05/2024 2:00 PM CDT [facility] Blood BLOOD SPECIMEN / Unknown Butterfly / Unknown 10/05/2024 1:23 PM CDT 10/05/2024 1:28 PM CDT Adrian Jose MD CHEMISTRY Final Result Performing Organization Address [facility]/ZIP Co de Phone Number [facility] [address] [place] [address] * TYPE AND SCREEN ONLY (10/05/2024 1:22 PM CDT) Pathologist [facility] ABORH A Rh Positive 10/05/2024 2:21 PM CDT [facility] BLOOD BANK ANTIBODY SCREEN Negative Negative 10/05/2024 2:21 PM CDT [facility] BLOOD BANK SPECIMEN EXPIRATION DATE/TIME 10/08/24 23:59 10/05/2024 2:21 PM CDT [facility] BLOOD BANK Blood BLOOD SPECIMEN / Unknown Butterfly / Unknown 10/05/2024 1:22 PM CDT 10/05/2024 1:28 PM CDT Adrian Jose MD BLOOD BANK Final Result [facility] BLOOD BANK [address] [place] [address] * (ABNORMAL) XR DXA BONE DENSITY 2 [...] Patients: Results are automatically released to your [employer]) account once available, in compliance with federal regulations. This means that you may see your results before your provider has had a chance to review them. Please allow 2-3 business days for your provider to comment on the results. XR DXA Bone Mineral Density (BMD) EXAM LOCATION: [address] [id number] PATIENT NAME: Kajal Francois DATE OF : [...] two scanners are made by the same seaming machine operator. 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 [place] [address] [address] 12/20/19 Loida Carrillo RN [address] [phone] Immigration Judge - [facility] Registered Nurse 03/21/21 [facility] [place] [address] [address] 10/07/24 Liz Garcia, RN [address] [phone] Immigration Judge - [facility] 10/14/21
== END 2024-11-15 11:58 | disposition home or self-care (01) ==
PROVIDERS: Visit Provider Emergency Medicine
DX: R55 Syncope and collapse (principal)
CPT/HCPCS: A0425; A0427

== ENCOUNTER 2024-11-15 12:34 | Observation (INO) | payer OTHER, SELFPAY ==
[2024-11-15 12:37] VITALS: BP 141/89; PULSE 80; RESP 18; TEMP 35.9; O2SAT 96
--- NOTE | 2024-11-15 12:37 | CRLHL7_ITS ---
For Patients: As a result of the Century Cures Act, medical imaging exams and procedure reports are released immediately into your electronic medical record. You may view this report before your referring provider. If you have questions, please contact your health care provider. INDICATION: Unresponsive with seizure-like activity. COMPARISON: 10/05/2024 and 10/24/2024 TECHNIQUE: CT of the brain / head without intravenous contrast. Multiplanar axial, coronal, and sagittal reformats were reconstructed. FINDINGS: No intracranial hemorrhage. Age-related atrophy. No acute or subacute cortically based infarct. Scattered white matter hypodensities may be related to chronic microvascular ischemia. No mass or mass effect. Normal ventricles. No skull fractures. No worrisome focal bone lesion. IMPRESSION: No acute intracranial findings. Atrophy and white matter hypodensity typical of small-vessel disease in a pattern that is similar to the prior exam. Please note that all CT scans at this facility use dose modulation, iterative reconstruction, and/or weight-based dosing when appropriate to reduce radiation dose to as low as reasonably achievable. Dictated by Laureen Alford MD @ 11/15/2024 12:49:20 PM (Electronically Signed)
--- NOTE | 2024-11-15 12:41 | ED_ITS ---
HPI - Altered Mental Status General Time Seen by Provider: 12:42 Date Seen: 11/15/24 Chief Complaint: Altered Mental Status Stated Complaint: possible stroke Time Seen by Provider: 11/15/24 12:36 Source: EMS Mode of arrival: EMS History of Present Illness HPI narrative: Joint is a 84-year-old female history of aortic stenosis, status post TAVR, severe protein calorie malnutrition, peripheral edema, dysphasia on a liquid diet, SVT, pacemaker, hypertension, osteoarthritis, vitamin deficiency, DVT currently on Eliquis, presents emergency department from [facility] via EMS with stroke-like symptoms. According to staff, EMS, patient had an unresponsive seizure-like episode while being fed liquids at [facility]. Patient just came over from her residence and had not been there very long, concerned they called EMS to bring her to the emergency department. EMS felt her right pupil was sluggish, no other focal deficits. Patient's son was at the scene and she was communicating with him. Patient's only complaint at this time is her swallowing difficulty, she said this for over 18 years. When asked if she has any pain she says all over, she used to get around with a walker at her residence. She denies any chest pain or shortness of breath, she denies any focal weakness, she denies any trouble speaking, dizziness or lightheadedness. Her only concern is difficulty swallowing which is a chronic issue. Patient also states she has lost a lot a weight due to this. Related Data Home Medications ?Medication ?Instructions ?Recorded ?Confirmed ICaps AREDS2 11/15/24 apixaban 5 mg tablet 5 mg PO BID 11/15/24 5 cholecalciferol (vitamin D3) 11/15/24 pediatric multivitamin 11/15/24 Allergies Allergy/AdvReac Type Severity Reaction Status Date / Time codeine Allergy Unknown Verified 11/15/24 12:46 morphine Allergy Unknown Verified 11/15/24 12:46 ondansetron Allergy Unknown Verified 11/15/24 12:46 Sulfa (Sulfonamide Allergy Unknown Verified 11/15/24 12:46 Antibiotics) warfarin (From Coumadin) Allergy Unknown Verified 11/15/24 12:46 Review of Systems Status of ROS: Reports: 10 or more systems reviewed and unremarkable except as noted in History and below PFSH PFSH Social History What is your current living situation?: I presently have a place to live Problems where you live: no known problems Problems where you live details: no known problems In the past 12 months, utilities in danger of being shut off: no In past 12 months, lack of transportation kept you from medical appts, meetings, work, or getting things needed for daily living: no In the past 12 mos, have been you worried that your food would run out before you had money to buy more?: never true In the past 12 mos, the food you bought just didn't last and you didn't have money to buy more?: never true How often do you have a drink containing alcohol: never AUDIT-C Alcohol total score: 0 Non-prescribed substance use: denies use Caffeine: No How often does anyone, including family, friends and others, physically hurt you : never How often does anyone, including family, friends and others, insult or talk down to you: never How often does anyone, including family, friends and others, threaten you with harm: never How often does anyone, including family, friends and others, scream or curse at you: never Exam Narrative: Exam Narrative: General: No obvious distress laying comfortably HEENT: Symmetrical smile, pupils equal round reactive light, extraocular muscles intact, Neck: Supple, full range of motion Lungs: Clear to auscultation bilaterally Heart: Normal sinus rhythm S1-S2 Abdomen: Obese, soft, nontender Muscle skeletal: Moving her upper lower extremities Neuro: GCS 15, NIH stroke scale 0 Psych: Mood and affect normal Const: Vital Signs, click to edit/add: Vital Signs - 24 hr 11/15/24 12:37 11/15/24 16:14 Temperature 96.7 F L 98.6 F Pulse Rate [Pulse Oximeter] 80 84 Respiratory Rate 18 18 Blood Pressure [Ri ght Upper Arm] 141/89 H 142/85 H Pulse Oximetry 96 98 Oxygen Delivery Me thod Room Air Room Air Course Course ED Course: 12:15 PM: AIDET performed, patient was evaluated in the hallway, patient to go for CT head without IV contrast, no real focal deficits on exam, reach out to neurology [facility], will obtain EKG, TSH, magnesium, CBC, CMP, IV peripheral, low suspicion for CVA. Differential includes CVA, seizure, electrolyte imbalance, sepsis, pneumonia, UTI, medication reaction, cardiac arrhythmia, dehydration, DIEUDONNE, as well as other etiologies. Reevaluation(s) Time of Reevaluation #1: 13:30 Reevaluation #1: Imaging: CT head without IV contrast: IMPRESSION: No acute intracranial findings. Atrophy and white matter hypodensity typical of small-vessel disease in a pattern that is similar to the prior exam. Spoke with Dr. Peters Neurology, patient would not be candidate for any intervention at this time, no LKN, no focal deificits on exam. to await for family to arrive to determine further work up and disposition. Time of Reevaluation #2: 14:28 Reevaluation #2: Imaging: IMPRESSION: Small left pleural effusion and subtle left basal patchy opacities may reflect atelectasis, however aspiration is difficult to exclude. ECG showed normal sinus rhythm, left axis deviation low-voltage QRS inferior infarct anterior lateral infarct age undetermined but seen on previous, no acute ST changes. CT head showed no acute intracranial abnormality,Xr chest showed a small left pleural effusion. CBC showed no leukocytosis, platelet count of 83 no comparisons, lactate mildly elevated 2.1, will plan to repeat after IV fluid administration, less likely sepsis, of his metabolic panel showed normal electrolytes, normal renal function, calcium was 7.9, total protein 5.2, albumin 2.4 consistent with her malnutrition, urinalysis showed no signs of infection. Normal magnesium. PSA mildly elevated at 13.7. After speaking with son, he states that patient was living at home and ended up going to the emergency department for worsening weakness and inability to ambulate, from the [facility] she was sent up to [place] 0 -, they did a EGD and swallow study found a candidate esophagitis treated with fluconazole,, she was sent to [facility] for rehab, however since she has been there there has been no improvement, she did have a repeat EGD and biopsy done on 10/25, she was then being transition to [facility] this morning, , on arrival she looked weak and dehydrated similar to the reason while she was at [place], and she was hospitalized she had her pacemaker interrogated, which was normal, she also had an echocardiogram with normal EF. Will plan to admit for observation, discharged back to [facility] tomorrow, Dr. Chakraborty accepts care of the patient. Vital Signs Vital signs: Initial Vital Signs Temperature 96.7 F L 11/15/24 12:37 Temperature Source Temporal Artery Scan 11/15/24 12:37 Pulse Rate 80 11/15/24 12:37 Respiratory Rate 18 11/15/24 12:37 Blood Pressure 141/89 H 11/15/24 12:37 Blood Pressure Mean 106 H 11/15/24 12:37 Blood Pressure Position Supine 11/15/24 12:37 Pulse Oximetry 96 11/15/24 12:37 Oxygen Delivery Method Room Air 11/15/24 12:37 Vital Signs Temperature 96.7 F L 11/15/24 12:37 Pulse Rate 80 11/15/24 12:37 Respiratory Rate 18 11/15/24 12:37 Blood Pressure 141/89 H 11/15/24 12:37 Pulse Oximetry 96 11/15/24 12:37 Oxygen Delivery Method Room Air 11/15/24 12:37 Temperature 97.9 F 11/15/24 18:00 Pulse Rate 81 11/15/24 18:00 Respiratory Rate 18 11/15/24 18:00 Blood Pressure 145/92 H 11/15/24 18:00 Pulse Oximetry 98 11/15/24 18:00 Oxygen Delivery Method Room Air 11/15/24 18:00 Medications Administered Medications: Discontinued Medications Generic Name Dose Route Start Last Admin Trade Name Freq PRN Reason Stop Dose Admin Sodium Chloride 250 mls @ 250 mls/hr 11/15/24 14:42 11/15/24 16:44 0.9 % Sodium Chloride 250 Ml IV 11/15/24 15:41 Infused .Q1H ONE Infusion MDM - Altered Mental Status Lab Data Labs: Lab Results 11/15/24 11/15/24 11/15/24 Range/Units 13:17 13:38 16:01 WBC 10.73 (4.50-11.00) K/uL RBC 4.15 (4.00-5.20) m/uL Hgb 13.1 (12.0-16.0) gm/dL Hct 40.9 (33.0-51.0) % MCV 99 (80-100) fL MCH 32 (26-34) pg MCHC 32 (32-36) gm/dL RDW Coeff of Raven 15.9 H (11.5-15.5) % Plt Count 83 L (140-440) K/uL Neut % (Auto) 81.8 H (42.0-72.0) % Lymph % (Auto) 13.4 L (20-44) % Gregory % (Auto) 3.6 (0.0-11.0) % Eos % (Auto) 0.4 (0.0-7.0) % Baso % (Auto) 0.4 (0.0-3.0) % Neut # (Auto) 8.80 H (1.7-7.0) K/uL Lymph # (Auto) 1.40 (0.90-2.90) K/uL Gregory # (Auto) 0.40 (0.00-0.90) K/UL Eos # (Auto) 0.04 (0.00-0.50) K/uL Baso # (Auto) 0.04 (0.00-0.30) K/uL Abs Immat Gran (auto) 0.04 (0.00-0.30) K/uL Imm/Tot Granulo (auto) 0.4 % Sodium 139 (135-149) mmol/L Potassium 3.7 (3.6-5.1) mmol/L Chloride 109 (96-114) mmol/L Carbon Dioxide 27 (20-32) mmol/L Anion Gap 3 L (7-15) mEq/L BUN 19 (7-30) mg/dL Creatinine 0.6 (0.5-1.5) mg/dL Estimated GFR 87 ml/min Glucose 99 (60-115) mg/dL Lactate 2.1 H 1.2 (0.5-1.9) mmol/L Calcium 7.9 L (8.4-10.6) mg/dL Magnesium 2.0 (1.5-2.6) mg/dL Total Bilirubin 0.6 (0.1-1.5) mg/dL AST 36 H (12-35) U/L ALT 29 (4-35) U/L Alkaline Phosphatase 95 (40-150) U/L Total Protein 5.2 L (6.0-8.3) g/dL Albumin 2.4 L (3.3-5.0) g/dL TSH 13.700 H (0.270-4.20) uIU/mL Urine Color Yellow (Yellow) Urine Appearance Clear (Clear) Urine pH 5.5 (5.0-8.5) Ur Specific Bryan 1.025 (1.000-1.030) Urine Protein Negative (Negative) Urine Glucose (UA) Negative (Negative) Urine Ketones Negative (Negative) Urine Blood Negative (Negative) Urine Nitrite Negative (Negative) Urine Bilirubin Negative (Negative) Urine Urobilinogen 0.2 (0.2-1.0) Ur Leukocyte Esterase Negative (Negative) Urine RBC 0-2 (0-2) Urine WBC 0-2 (0-5) Ur Squamous Epith Cells Few (None-Few) Other Sediment (None) Urine Bacteria None (None) Urine Mucus Few A (None) Discharge Plan Discharge Clinical Impression: Generalized weakness Patient Disposition: Admitted As Observation
[2024-11-15 13:32] LABS: Lactate* 2.1 mmol/L (0.5-1.9)
[2024-11-15 13:34] LABS: Basophils Absolute Auto 0.04 K/uL (0.00-0.30); Basophils Percent Auto 0.4 % (0.0-3.0); Eosinophils Absolute Auto 0.04 K/uL (0.00-0.50); Eosinophils Percent Auto 0.4 % (0.0-7.0); Hematocrit 40.9 % (33.0-51.0); Hemoglobin* 13.1 gm/dL (12.0-16.0); Immature Granulocytes Abs Auto 0.04 K/uL (0.00-0.30); Immature Granulocytes Pct Auto 0.4 %; Lymphocytes Percent Auto 13.4 % (20-44); Mean Corpuscular HGB Conc 32 gm/dL (32-36); Mean Corpuscular Hemoglobin 32 pg (26-34); Mean Corpuscular Volume 99 fL (80-100); Monocytes Percent Auto 3.6 % (0.0-11.0); Neutrophils Percent Auto 81.8 % (42.0-72.0); Platelet Count* 83 K/uL (140-440); RDW Coefficient of Variation % 15.9 % (11.5-15.5); Red Blood Count 4.15 m/uL (4.00-5.20); White Blood Count* 10.73 K/uL (4.50-11.00)
[2024-11-15 13:37] LABS: Slide Review Reflex No
--- NOTE | 2024-11-15 13:38 | CRLHL7_ITS ---
For Patients: As a result of the Century Cures Act, medical imaging exams and procedure reports are released immediately into your electronic medical record. You may view this report before your referring provider. If you have questions, please contact your health care provider. INDICATION: Concern for possible aspiration TECHNIQUE: Chest 1 view COMPARISON: None. FINDINGS: Cardiovasculature and mediastinum: Cardiomegaly. Unremarkable mediastinum. Valve replacement. Left chest wall pacer with leads projecting over the expected locations of the right atrial appendage and right ventricle. Aortic arch calcifications. Lungs and pleural spaces: Right hemidiaphragm elevation. Small left pleural effusion. Subtle left basal opacities. No pneumothorax. Bones and soft tissues: Surgical clips and surgical material project over the left lower chest. Prior left rotator cuff repair. IMPRESSION: Small left pleural effusion and subtle left basal patchy opacities may reflect atelectasis, however aspiration is difficult to exclude. Cardiomegaly. Dictated by Emma Gamboa MD @ 11/15/2024 2:10:26 PM (Electronically Signed)
[2024-11-15 13:47] LABS: Albumin* 2.4 g/dL (3.3-5.0); Chloride* 109 mmol/L (96-114); Potassium* 3.7 mmol/L (3.6-5.1); Sodium* 139 mmol/L (135-149)
[2024-11-15 13:49] LABS: Blood Urea Nitrogen* 19 mg/dL (7-30); Creatinine* 0.6 mg/dL (0.5-1.5); Estimated Glomerular Filt Rate 87 ml/min
[2024-11-15 13:50] LABS: Alanine Aminotransferase* 29 U/L (4-35); Alkaline Phosphatase* 95 U/L (40-150); Anion Gap 3 mEq/L (7-15); Aspartate Amino Transferase* 36 U/L (12-35); Bilirubin Total* 0.6 mg/dL (0.1-1.5); Calcium* 7.9 mg/dL (8.4-10.6); Carbon Dioxide* 27 mmol/L (20-32); Glucose* 99 mg/dL (60-115); Total Protein* 5.2 g/dL (6.0-8.3)
--- OUTSIDE RECORDS SUMMARY | 2024-11-15 14:07 | XMS_ITS | Clinical Summary ---
Author Organization [facility] Address [address] [place] [id number] Care Team Providers Care Standards Analyst Name Role Phone Janelle Crawford MD Primary Care Provider [phone] Hailee Mclean RN Unavailable [facility] [place] Unavailable Loida Carrillo RN Unavailable [phone] [facility] [place] Unavailable [phone] Allergies Active Allergy Reactions Criticality Noted Date Comments Codeine Sedation 08/05/2006 Warfarin Bleeding 07/25/2013 Internal bleed Morphine Rash 08/05/2006 Ondansetron Itching 08/24/2024 Does take because it helps, but causes itching Sulfa (Sulfonamide Antibiotics) Anaphylaxis 08/05/2006 Medications cholecalciferol (VITAMIN D3) 1,000 unit tablet Take 1 tablet by mouth once daily. 0 04/08/20 12 Active artificial tears, peg 400-propylene glycol, (SYSTANE) 0.4-0.3 % drop ophthalmic Place 1 Drop into both eyes 2 times daily if needed for Dry Eyes. Active apixaban 5 mg tabletIndications :deep venous thrombosis Take 1 Tablet (5 mg) by mouth two times daily. 10/31/19 25 Active multivitamin pediatric chewable tabletIndications :Weight loss, unintentional Take 2 Tablets by mouth or nasogastric tube once daily. 10/31/19 25 Active vit C-vit U-mcxknx-yzhm ox-lutein (PRESERVISION) 226-200-5-0.8 cp-cbxz-eg-mg cap Take 1 capsule by mouth once daily. Preservision 0 03/19/20 15 025 Discontinu ed(*IP Discontinu ed) apixaban (Eliquis DVT-PE Treat 30D Start) tablet in a dose packIndications:d eep venous thrombosis Take by mouth as directed on starter pack. 74 Tablet 10/30/19 25 025 Discontinu ed(*IP Discontinu ed) fluconazole 200 mg tabletIndications :Fungal esophagitis Take 1 Tablet (200 mg) by mouth or nasogastric tube once daily for 13 days. 11/01/19 25 025 Active Problems Problem Noted Date Diagnosed Date Esophageal stenosis 10/23/2024 Severe malnutrition 10/07/2024 Elevated troponin 10/07/2024 Weakness generalized 10/07/2024 S/P TAVR (transcatheter aortic valve replacement ) 10/07/2024 Weakness generalized 10/07/2024 Dysphagia 10/06/2024 Hypokalemia 10/06/2024 AMD (age-related macular degeneration), bilatera l 06/24/2024 Paroxysmal SVT (supraventricular tachycardia) Hoarseness of voice 06/19/2024 Chronic constipation 06/19/2024 Hypertension 12/20/2023 Syncope 12/14/2023 Long QT interval 12/14/2023 Weight loss, unintentional 12/14/2023 Obstipation 12/14/2023 S/P gastric bypass 06/01/2023 Overview (06/01/2023): -per 02/07/2013 Ramin Triplett MD note she underwent prior gastric bypass, Geovanna-en-Y at [facility] in the 1979's. 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 Dysphagia, pharyngoesophageal phase 11/07/2019 Post-traumatic osteoarthritis of right wrist Carpal tunnel syndrome of right wrist 02/17/2017 Esophageal stenosis, mild 07/27/2016 Overview (08/10/2016): S/p dilation during upper endoscopy LBBB (left bundle branch block) 02/19/2016 S/P TAVR (transcatheter aortic valve replacement ) 02/19/2016 S/P placement of cardiac pacemaker 02/19/2016 Severe aortic stenosis, s/p TAVR 2016 01/31/2016 Overview (02/19/2016): S/p TAVR Osteoarthritis 02/25/2015 Abnormal platelet aggregation 12/25/2013 Overview (10/29/2016): Blood should be drawn in sodium/heparin tubes to avoid conflicting results. ACP (advance care planning) 01/23/2013 Overview (01/23/2013): Full code POA: Ramin Forman, Son B12 deficiency 07/08/2006 Macular degeneration, left eye Primary osteoarthritis involving multiple joints Resolved Problems Problem Noted Date Diagnosed Date Resolved Date Weakness of both lower extremities 06/22/2024 08/24/2024 Hyperglycemia 12/14/2023 06/19/2024 Class 3 severe obesity with body mass index (BMI) of 40.0 to 44.9 in adult 06/01/2023 Overview (06/01/2023): -s/p Geovanna-en-Y gastric bypass in [address] [place] [address] Iron deficiency anemia 02/26/202106/19 Iron deficiency anemia due t o chronic blood loss 12/26/2019 06/19/2024 Cardiac pacemaker in situ 11/10/2019 GIB (gastrointestinal bleeding) 11/07/2019 02/17/2023 Anemia 11/07/2019 02/26/2021 Asthma 01/07/2016 08/24/2024 Aortic stenosis 01/07/2016 07/27/2016 Osteoarthritis of multiple joints 02/25/2015 02/25/2015 Abdominal pain 01/23/2013 02/19/2016 SBO (small bowel obstruction) 01/23/2013 12/25/2013 Vitamin D deficiency 01/20/2010 017 Peripheral edema 02/17/2008 07/27/2016 OSTEOARTHRITIS GENERALIZED 04/15/2007 0 02/25/2015 Hypertension 04/15/2007 06/10/2017 Morbid obesity 04/15/2007 02/17/2023 Unspecified menopausal and p ostmenopausal disorder 06/10/2006 07/27/2016 Hypertension 04/22/2022 Anemia 01/10/2019 Encounters Date Type Department Care Team Description 11/08/19 Lab Requisition [facility] [phone] Unknown, Doctor 11/07/19 Home Care Visit [facility] [address] [place] [address] Hanh Horn RN CARE COORDINATION 10/26/19 25 10:38 AM CDT - 10/26/19 11:10 AM CDT Surgery [facility] [address] [place] [address] George Stuart MD ESOPHAGOGASTRODUODENOSCOPY WITH BIOPSY 10/26/19 10:24 AM CDT Anesthesia Event [facility] [address] [place] [address] Khadra Merchant MD Zimmerman, Anna A, CRNA 10/25/19 25 Home Care Visit [facility] [address] [place] [address] Hanh Horn RN SN - OASIS TRANSFER 10/24/19 25 1:00 AM CDT - 10/31/19 25 1:30 PM CDT Hospital Encounter [facility] [address] [place] [address] [facility], [facility] Hospitalists Of [facility] Techar, MD Deion Aguilar, Ioana Leary MD Deep vein thrombosis (DVT) of proximal lower extremity, unspecified chronicity, unspecified laterality (HC) (Primary Dx); Weight loss, unintentional; Fungal esophagitis; Esophageal stenosis Discharge Disposition: Senior Living Facility 10/24/19 25 Home Care Visit [facility] [address] [place] [address] Hanh Horn, MEDICAL ONCOLOGIST NOTE 10/23/19 7:28 PM CDT - 10/23/19 11:52 PM CDT Emergency [facility] [address] [place] [address] Susie Bang PA Katzung, Katherine Graham, MD Dysphagia, unspecified type (Primary Dx); Hypokalemia Discharge Disposition: Short Term/PPS Hosp 10/23/19 Travel 10/21/19 Telephone [facility] [address] [place] [address] Janelle Crawford MD Error-please disregard 10/21/[address] [facility] [address] [place] [address] Joe Elliott, MACHINE BANDER AND CELLOPHANER HELPER Home Care (Worsening Dysphagia ) 10/20/19 12:15 PM CDT Home Care Visit [facility] [address] [place] [phone] Joe Elliott, MACHINE BANDER AND CELLOPHANER HELPER MACHINE BANDER AND CELLOPHANER HELPER - INITIAL ASSESSMENT 10/18/19 2:30 PM CDT Home Care Visit [facility] [address] [place] [phone] Patricia Tavarez, PT PT - LZI-DUIY-CSNO ASSESSMENT 10/18/19 12:30 PM CDT Home Care Visit [facility] [address] [place] [phone] Hanh Horn, STEFANIE SN - HOME VISIT 10/14/19 Home Care Visit [facility] [address] [place] [phone] Paula Cole, PT CARE COORDINATION 10/14/19 Nurse Triage [facility] [address] [place] [address] Janelle Crawford MD Appointment 10/13/19 Home Care Visit [facility] [address] [place] [phone] Paula Cole, CARLTON CARE COORDINATION 10/12/19 1:45 PM CDT Office Visit [address] [phone] Janelle Crawford MD Hospital F/U 10/12/19 25 Travel 10/12/19 25 Home Care Visit [facility] [address] [place] [address] Hanh Horn, STEFANIE CARE COORDINATION 10/11/19 11:30 AM CDT Home Care Visit [facility] [address] [place] [address] Hanh Horn, STEFANIE SN - OASIS START OF CARE 10/11/19 Telephone [facility] [address] [place] [address] Hanh Horn, cannery tender engineer (Leg edema) 10/11/19 Plan of Care Documentation [facility] [address] [place] [address], [place] [address] 10/10/19 25 Transcribe Orders [facility] [address] [place] [address] Jose Luis Lozano DO 10/10/19 25 Patient Outreach [address] [phone] Ella Morrison, RN Primary RN Care Management (Hospital DC: 10/07/24/LACE: 64/Dysphagia ); Hospital F/U 10/06/19 11:31 PM CDT - 10/08/19 12:58 PM CDT Hospital Encounter [facility] [address] [place] [address] [facility], [facility] Hospitalists Of Ramin Osborne MD Balakrishna Menon, JAE Garcia Residents, A2 S/P TAVR (transcatheter aortic valve replacement) (Primary Dx); Dysphagia, unspecified type; Weight loss, unintentional Discharge Disposition: Home Health 10/06/19 12:06 PM CDT - 10/06/19 10:30 PM CDT Emergency [facility] [address] [facility] [place] [address] Adrian Jose MD Hospitalist, [facility] Dmitriy Mendez, DO Tricia Hassan DO Dysphagia, unspecified type (Primary Dx) Discharge Disposition: Short Term/PPS Hosp 10/06/19 25 Travel 09/16/19 Telephone [facility] [address] [place] [address] Janelle Crawford MD Results 09/14/19 9:35 AM CDT Office Visit [facility] [address] [place] [address] Janelle Crawford MD Leg Swelling 09/14/19 25 Travel 09/02/19 Nurse Triage [facility] [address] [place] [address] Janelle Crawford MD Leg Swelling (Bilateral severe ) 09/02/19 Telephone [facility] [address] [place] [address] Janelle Crawford MD Error-please disregard 08/30/19 Telephone [facility] [address] [place] [address] Tasha Christian DO Chart Review 08/25/19 25 2:10 PM CDT Office Visit [facility] [address] [place] [address] Janelle Crawford MD Hospital F/U (ED DOS: 08/16/2024) 08/25/19 25 Travel 08/17/19 25 3:38 PM CDT - 08/17/19 25 6:31 PM CDT Emergency [facility] [address] [facility] [place] [address] Ruth Parrish PA Bilateral lower extremity edema (Primary Dx); Viral gastroenteritis Discharge Disposition: Home Self Care 08/17/19 25 Travel from Last 3 Months Immunizations Immunization Administration Dates Next Due COVID-19 vaccine (Moderna 100mcg/0.5mL) PF, MDV 06/26/2021,07/23/2020,06/25/2020 Influenza A (H1N1), Inactiva caroline (Age >=3 Years) 06/10/2009 Influenza, High-dose Inactivated 020,03/31/2019,02/25/2018,2016,03/14/2016,03/19/2015,02/22/2014 Influenza, High-dose Quadriv alent Inactivated 07/13/2023,04/03/2021 Influenza, IIV3 (Age 6-35 mos) 02/03/2011 Influenza, IIV3 (Age >=3 years) 03/16/20 13,02/29/2012,02/03/2011,2009,02/27/2009,03/26/2008,03/15/2007 Influenza, Inactivated AIIV4 (Age 65+ Years) Preserv Free 02/11/2022 Influenza, Inactivated IIV3 (Age 65+ Years) Preserv Free 03/22/2017 Pneumococcal Conj 20-valent (Prevnar 20) 04/15/2024 Pneumococcal Poly,23-Valent (Pneumovax) 03/20/2004 Pneumococcal conj 13-Valent (Prevnar 13) 02/19/2016 Td (Age >=7 Years) 07/18/2004 Td, Preservative Free (age > = 7 Years) 03/15/2018 Family History Medical History Relation Name Comments Cancer Father Lung Diabetes Mother Cancer-breast Sister 1 Shruti Dementia Sister 1 Shruti Relation Name Status Comments Father (Age 67) Mother (Age 65) Sister 1 Shruti (Age 81) Sister 2 Alive Sister 3 Alive Social History Tobacco Use Types Packs/Day Years Used Date Smoking Tobacco: Former Cigarettes 1 10 0 05/31/1957 - 05/31/1967 Passive Smoke Exposure: Never Smokeless Tobacco: Never Tobacco Cessation:Counseling Given: Not Answered Alcohol Use Standard Drinks/Week Comments No 0 (1 standard drink = 0.6 oz pur e alcohol) PHQ-2 Answer Date Recorded PHQ-2 TOTAL SCORE 3 09/13/2024 Social Connections Answer Date Recorded Do you often feel lonely or isolated from those around you? 0 10/23/2024 Financial Resource Strain Answer Date R ecorded Difficulty of Paying Living Expenses 3 12/15/2023 Difficulty of Paying Living Expenses Not on file 12/15/2023 Food Insecurity Answer Date Recorded Do you worry your food will run out before you are able to buy more? 1 10/23/2024 Transportation Needs Answer Date Record ed Does lack of transportation keep you from medica l appointments? 2 10/23/2024 Does lack of transportation keep you from work, meetings or getting things that you need? 1 10/23/2024 Housing Stability Answer Date Recorded What is your housing situation today? 1 10/23/2024 Interpersonal Safety Answer Date Record ed Are you being hit, kicked, p ushed or yelled at (see row info)? No 10/23/2024 Interpersonal Safety Abuse 12 - 18 Not on file 10/23/2024 Interpersonal Safety Ambulatory Vulnerability No t on file 10/23/2024 Utilities Answer Date Recorded Do you have trouble paying f or utilities (for example, heat, electricity, water, phone)? 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 Not on file Not on file Not on file Obstetrics History Para Term AB IAB SAB Ectopic Multiple Livin g Live Births 5 5 5 0 0 0 0 0 5 Date Outcome GA Total Labor Labor/2nd/3rd Weight Sex Type Anes PTL Moraima A1 A5 Name Clin Term Term Term Term Term Last Filed Vital Signs Vital Sign Reading Time Taken Comments Blood Pressure 105/71 10/30/2024 8:00 AM CDT Pulse 72 10/30/2024 11:02 AM CDT Temperature 36.3 C (97.3 F) 10/30/2024 8:00 AM CDT Respiratory Rate 18 10/30/2024 8:00 AM CDT Oxygen Saturation 95% 10/30/2024 8:00 AM CDT Inhaled Oxygen Concentration - - Weight 64.5 kg (142 lb 1.6 oz) 10/23/2024 3:27 A M CDT Height 154.9 cm (5' 0.98) 10/23/2024 3:27 AM CD T Body Mass Index 26.86 10/23/2024 3:27 AM CDT Plan of Treatment Upcoming Encounters Date Type Department Care Team (Late st Contact Info) Description 12/04/2024 11:00 AM CDT Office Visit [facility] [address] [place] [address] Norman Mckeon MD [address] [place] [address] 12/14/2024 12:30 PM CDT Office Visit [facility] [address] [place] [address] Vivek Cox MD [address] [place] [address] 12/14/2024 3:00 PM CDT Orders Only [facility] [address] [place] [address] 02/27/2025 Cardiac Device Check [facility] [phone] Health Maintenance Due Date Last Done Comments Tdap 1951 Zoster (shingles) series for age 50+ (1 of 2) 1988 RSV vaccine for adults or (1 - 1-dose 75+ series) 2013 COVID-19 vaccine series ( season) 2024 06/26/2021, 07/23/2020, 06/25/2020 BMI (ht and wt on same day) for age 18+ 02/18/2024 02/17/2023, 10/07/2022, 02/11/2022, Additional history exists Medicare Wellness for age 65+ 02/18/2024 02/17/2023, 02/11/2022, 03/15/2018, Additional history exists Influenza Vaccine (Season Ended) 2025 02/11/2022, 03/08/2020, 03/31/2019, Additional history exists Depression screening for age 12+ 09/15/2025 09/15/2024, 09/13/2024, 02/17/2023, Additional history exists Tetanus booster 03/15/2028 03/15/2018, 07/18/2004 DEXA/DXA scan for age 65+ Completed 03/04/2022 Pneumococcal series for age 50+ Completed 04/15/2024, 02/19/2016, 03/20/2004 Hepatitis B series for 19+ Aged Out N o longer eligible based on patient's age to complete this topic Medical Devices Implanted Type Area Research Psychologist Device Identifier Shelf Expiration Date Model / Serial / Lot Dual Chamber Pacemaker Implanted:2015 by Virgil Hernandez MD (Quantity not on file) Standard Pacemaker Medtronic ADAPTA [id number] / [id number] / Valve Aortic 26mm Nicolle 3 Transcatheter Sys Commander - [id number] Implanted:Qty: 1 on 02/05/2016 by Manish Flores MD at [facility] Aortic Valve [employer] Paul 10/16/2016 [id number] / [id number] / Procedures Procedure Name Priority Date/Time Associated Diagnosis Comments PLATELET ESTIMATE Routine 11/08/2024 8:02 AM CDT Esophageal obstruction Weakness Dysphagia, unspecified CBC WITH AUTO DIFFERENTIAL Routine 11/08 8:02 AM CDT Esophageal obstruction Weakness Dysphagia, unspecified BASIC METABOLIC PANEL Routine 11/08/2024 8:02 AM CDT Esophageal obstruction Weakness Dysphagia, unspecified CBC WITH AUTO DIFFERENTIAL Routine 11/08 8:02 AM CDT Esophageal obstruction Weakness Dysphagia, unspecified PLATELET ESTIMATE Timed 10/30/2024 7:10 AM CDT APTT Early AM 10/30/2024 7:10 AM CDT HEMOGLOBIN Early AM 10/30/2024 7:10 AM CDT PLATELET COUNT Early AM 10/30/2024 7:10 AM CDT GLUCOSE METER Timed 10/30/2024 6:30 AM CDT GLUCOSE METER Timed 10/30/2024 3:28 AM CDT SCAN-CARDIAC STRIP 10/30/2024 2:01 AM CDT GLUCOSE METER Timed 10/29/2024 11:00 PM CDT APTT Timed 10/29/2024 8:46 PM CDT GLUCOSE METER Timed 10/29/2024 12:53 PM CDT PLATELET ESTIMATE Timed 10/29/2024 12:04 PM CDT APTT Timed 10/29/2024 12:04 PM CDT WHITE BLOOD COUNT Today 10/29/2024 12:04 PM CDT HEMOGLOBIN Early AM 10/29/2024 12:04 PM CDT PLATELET COUNT Early AM 10/29/2024 12:04 PM CDT GLUCOSE METER Timed 10/29/2024 9:37 AM CDT GLUCOSE METER Timed 10/29/2024 6:22 AM CDT SCAN-CARDIAC STRIP 10/29/2024 6:00 AM CDT GLUCOSE METER Timed 10/29/2024 2:55 AM CDT GLUCOSE METER Timed 10/29/2024 12:23 AM CDT APTT Timed 10/28/2024 11:28 PM CDT GLUCOSE METER Timed 10/28/2024 9:53 PM CDT GLUCOSE METER Timed 10/28/2024 7:55 PM CDT GLUCOSE METER Timed 10/28/2024 5:47 PM CDT APTT Timed 10/28/2024 3:01 PM CDT XR VIDEO SWALLOW W SPEECH Routine 2024 11:45 AM CDT PLATELET ESTIMATE Timed 10/28/2024 10:26 AM CDT EXTRA TUBE BLUE Today 10/28/2024 10:26 AM CDT WHITE BLOOD COUNT Early AM 10/28/2024 10:26 AM CDT HEMOGLOBIN Early AM 10/28/2024 10:26 AM CDT PLATELET COUNT Early AM 10/28/2024 10:26 AM CDT GLUCOSE METER Timed 10/28/2024 8:47 AM CDT APTT Early AM 10/28/2024 8:33 AM CDT SODIUM Early AM 10/28/2024 8:33 AM CDT GLUCOSE METER Timed 10/28/2024 3:29 AM CDT SCAN-CARDIAC STRIP 10/28/2024 12:58 AM CDT APTT Timed 10/28/2024 12:55 AM CDT GLUCOSE METER Timed 10/27/2024 11:51 PM CDT GLUCOSE METER Timed 10/27/2024 8:26 PM CDT APTT Timed 10/27/2024 6:05 PM CDT GLUCOSE METER Timed 10/27/2024 4:41 PM CDT PACER TOMMIE DUAL CHAMBER WO REPROG Routine 10/27/2024 3:50 PM CDT GLUCOSE METER Timed 10/27/2024 1:55 PM CDT SCAN-CARDIAC STRIP 10/27/2024 11:02 AM CDT TROPONIN T (HS) ONE TIME STAT 025 9:53 AM CDT LACTATE VENOUS STAT 10/27/2024 9:53 AM CDT AMMONIA STAT 10/27/2024 9:53 AM CDT ARTERIAL BLOOD GAS STAT 10/27/2024 9:44 AM CDT GLUCOSE METER Timed 10/27/2024 9:39 AM CDT EKG 12 LEAD STAT 10/27/2024 9:37 AM CDT PLATELET ESTIMATE Timed 10/27/2024 8:15 AM CDT EXTRA TUBE BLUE Today 10/27/2024 8:15 AM CDT WHITE BLOOD COUNT Early AM 10/27/2024 8:15 AM CDT HEMOGLOBIN Early AM 10/27/2024 8:15 AM CDT PLATELET COUNT Early AM 10/27/2024 8:15 AM CDT COMP METABOLIC PANEL BRINDA 10/27/2024 7:42 AM CDT POTASSIUM Early AM 10/27/2024 7:42 AM CDT MAGNESIUM Early AM 10/27/2024 7:42 AM CDT APTT Early AM 10/27/2024 7:42 AM CDT GLUCOSE METER Timed 10/27/2024 5:43 AM CDT GLUCOSE METER Timed 10/27/2024 1:31 AM CDT GLUCOSE METER Timed 10/26/2024 9:02 PM CDT APTT Timed 10/26/2024 7:58 PM CDT GLUCOSE METER Timed 10/26/2024 5:45 PM CDT GLUCOSE METER Timed 10/26/2024 12:08 PM CDT APTT Timed 10/26/2024 11:17 AM CDT PLATELET ESTIMATE Timed 10/26/2024 4:54 AM CDT APTT Timed 10/26/2024 4:54 AM CDT WHITE BLOOD COUNT Early AM 10/26/2024 4:54 AM CDT MAGNESIUM Early AM 10/26/2024 4:54 AM CDT HEMOGLOBIN Early AM 10/26/2024 4:54 AM CDT PLATELET COUNT Early AM 10/26/2024 4:54 AM CDT GLUCOSE METER Timed 10/26/2024 4:32 AM CDT GLUCOSE METER Timed 10/25/2024 11:49 PM CDT GLUCOSE METER Timed 10/25/2024 9:46 PM CDT APTT Timed 10/25/2024 8:57 PM CDT GLUCOSE METER Timed 10/25/2024 4:21 PM CDT PLATELET ESTIMATE Timed 10/25/2024 12:52 PM CDT EXTRA TUBE BLUE Today 10/25/2024 12:52 PM CDT EXTRA TUBE LIGHT GREEN Today 12:52 PM CDT WHITE BLOOD COUNT Today 10/25/2024 12:52 PM CDT PLATELET COUNT Today 10/25/2024 12:52 PM CDT HEMOGLOBIN Today 10/25/2024 12:52 PM CDT GLUCOSE METER Timed 10/25/2024 11:58 AM CDT APTT Today 10/25/2024 11:03 AM CDT POTASSIUM Today 10/25/2024 11:03 AM CDT MAGNESIUM Today 10/25/2024 11:03 AM CDT PATH TISSUE EXAM Today 10/25/2024 10:35 AM CDT ESOPHAGOGASTRODUODENOSCOPY W ITH BIOPSY 10/25/2024 10:19 AM CDT see note ENDOSCOPY 10/25/2024 10:08 AM CDT APTT Timed 10/25/2024 8:26 AM CDT WHITE BLOOD COUNT Early AM 10/25/2024 8:26 AM CDT POTASSIUM Early AM 10/25/2024 8:26 AM CDT MAGNESIUM Early AM 10/25/2024 8:26 AM CDT HEMOGLOBIN Early AM 10/25/2024 8:26 AM CDT PLATELET COUNT Early AM 10/25/2024 8:26 AM CDT GLUCOSE METER Timed 10/25/2024 8:11 AM CDT GLUCOSE METER Timed 10/25/2024 4:03 AM CDT APTT Timed 10/25/2024 2:11 AM CDT GLUCOSE METER Timed 10/25/2024 12:03 AM CDT GLUCOSE METER Timed 10/24/2024 10:01 PM CDT BLOOD GAS,VENOUS Today 10/24/2024 9:51 PM CDT LACTATE VENOUS Today 10/24/2024 9:51 PM CDT SODIUM Today 10/24/2024 9:[address] HEAD BRAIN WO STAT 10/24/2024 7:00 PM CDT HEPARIN LEVEL Timed 10/24/2024 6:19 PM CDT APTT Timed 10/24/2024 6:19 PM CDT GLUCOSE METER Timed 10/24/2024 4:48 PM CDT GLUCOSE METER Timed 10/24/2024 3:38 PM CDT GLUCOSE METER Timed 10/24/2024 12:27 PM CDT PLATELET ESTIMATE Timed 10/24/2024 10:12 AM CDT APTT Timed 10/24/2024 10:12 AM CDT PLATELET COUNT Early AM 10/24/2024 10:12 AM CDT WHITE BLOOD COUNT Early AM 10/24/2024 10:12 AM CDT HEMOGLOBIN Early AM 10/24/2024 10:12 AM CDT GLUCOSE METER Timed 10/24/2024 8:54 AM CDT CREATININE Early AM 10/24/2024 7:36 AM CDT POTASSIUM Early AM 10/24/2024 7:36 AM CDT MAGNESIUM Early AM 10/24/2024 7:36 AM CDT GLUCOSE METER Timed 10/24/2024 4:11 AM CDT GLUCOSE METER Timed 10/24/2024 12:00 AM CDT APTT Timed 10/23/2024 9:18 PM CDT GLUCOSE METER Timed 10/23/2024 8:51 PM CDT GLUCOSE METER Timed 10/23/2024 5:20 PM CDT GLUCOSE METER Timed 10/23/2024 4:30 PM CDT APTT Timed 10/23/2024 1:07 PM CDT POTASSIUM Timed 10/23/2024 1:07 PM CDT GLUCOSE METER Timed 10/23/2024 12:07 PM CDT PLATELET ESTIMATE Timed 10/23/2024 4:20 AM CDT APTT BRINDA 10/23/2024 4:20 AM CDT PROTIME-INR BRINDA 10/23/2024 4:20 AM CDT CBC W PLT NO DIFF Early AM 10/23/2024 4:20 AM CDT MAGNESIUM Early AM 10/23/2024 4:20 AM CDT CREATININE Early AM 10/23/2024 4:20 AM CDT POTASSIUM Early AM 10/23/2024 4:20 AM CDT SODIUM Early AM 10/23/2024 4:20 AM CDT US VENOUS LOWER EXTREMITY BILATERAL PORTABLE Routine 10/23/2024 2:48 AM CDT RED CELL MORPHOLOGY STAT 10/22/2024 8:16 PM CDT PLATELET ESTIMATE STAT 10/22/2024 8:16 PM CDT CBC WITH AUTO DIFFERENTIAL STAT 10/22 8:16 PM CDT BASIC METABOLIC PANEL STAT 10/22/2024 8:16 PM CDT CBC WITH AUTO DIFFERENTIAL STAT 10/22 8:16 PM CDT PLATELET ESTIMATE Timed 10/07/2024 9:14 AM CDT POTASSIUM Early AM 10/07/2024 9:14 AM CDT CREATININE Early AM 10/07/2024 9:14 AM CDT PLATELET COUNT Early AM 10/07/2024 9:14 AM CDT MAGNESIUM Early AM 10/07/2024 9:14 AM CDT POTASSIUM Timed 10/06/2024 6:57 PM CDT ECHO TTE COMPLETE WO CONTRAST Routine 10:53 AM CDT PACER TOMMIE DUAL CHAMBER WO REPROG Routine 10/06/2024 9:19 AM CDT WHITE BLOOD COUNT Early AM 10/06/2024 7:37 AM CDT PHOSPHORUS BRINDA 10/06/2024 12:52 AM CDT POTASSIUM Today 10/06/2024 12:52 AM CDT MAGNESIUM Today 10/06/2024 12:52 AM CDT TROPONIN T (HS) ONE TIME Timed 025 3:12 PM CDT UA W/ SEDIMENT EXAM REFLEXED PER CRITERIA STAT 10/05/2024 2:55 PM CDT INFLUENZA A/B PCR STAT 10/05/2024 2:51 PM CDT COVID-19 MOLECULAR Today 10/05/2024 2:51 PM CDT XR CHEST 1 VIEW PORTABLE STAT 025 2:[address] HEAD BRAIN WO STAT 10/05/2024 2:11 PM CDT PLATELET ESTIMATE STAT 10/05/2024 1:23 PM CDT RED CELL MORPHOLOGY STAT 10/05/2024 1:23 PM CDT PRO-BNP STAT 10/05/2024 1:23 PM CDT TROPONIN T (HS) ACUTE W/2HR REFLEX STAT 10/05/2024 1:23 PM CDT ETHANOL SERUM OR PLASMA STAT 10/06/19 25 1:23 PM CDT BASIC METABOLIC PANEL STAT 10/05/2024 1:23 PM CDT HEPATIC FUNCTION PANEL STAT 1:23 PM CDT TSH WITH REFLEX STAT 10/05/2024 1:23 PM CDT AMMONIA STAT 10/05/2024 1:23 PM CDT PROTIME-INR STAT 10/05/2024 1:23 PM CDT CBC W PLT NO DIFF STAT 10/05/2024 1:23 PM CDT TYPE & SCREEN STAT 10/05/2024 1:22 PM CDT EKG 12 LEAD STAT 10/05/2024 12:11 PM CDT BASIC METABOLIC PANEL Routine 09/13/2024 11:10 AM CDT Leg swelling PRO-BNP Routine 09/13/2024 11:10 AM CDT STEINER (dyspnea on exertion) URINALYSIS MICROSCOPIC STAT 5:12 PM CDT UA W/ SEDIMENT EXAM REFLEXED PER CRITERIA STAT 08/16/2024 5:[address] ABDOMEN PELVIS W STAT 08/16/2024 4:57 PM CDT INFLUENZA A/B PCR STAT 08/16/2024 4:34 PM CDT COVID-19 MOLECULAR Today 08/16/2024 4:34 PM CDT EKG 12 LEAD STAT 08/16/2024 4:09 PM CDT RED CELL MORPHOLOGY STAT 08/16/2024 4:09 PM CDT PLATELET ESTIMATE STAT 08/16/2024 4:09 PM CDT CBC WITH AUTO DIFFERENTIAL STAT 08/16 4:09 PM CDT LIPASE STAT 08/16/2024 4:09 PM CDT HEPATIC FUNCTION PANEL STAT 4:09 PM CDT PRO-BNP STAT 08/16/2024 4:09 PM CDT BASIC METABOLIC PANEL STAT 08/16/2024 4:09 PM CDT CBC WITH AUTO DIFFERENTIAL STAT 08/16 4:09 PM CDT XR DXA BONE DENSITY 2 SITES AXIAL Routine 03/04/2022 2:22 PM CDT Menopause from Last 3 Months or Most Recently Relevant to Health Maintenance Results * (ABNORMAL) CBC WITH AUTO DIFFERENTIAL (11/08/2024 8:02 AM CDT) Only the most recent of3 resultswithin the time period is included. WHITE BLOOD COUNT 10.7 4.5 - 11.0 thou/cu mm 11/08/2024 9:03 AM [facility] RED BLOOD COUNT 4.30 4.00 - 5.20 mil/cu mm 11/08/2024 9:03 AM [facility] HEMOGLOBIN 13.5 12.0 - 16.0 g/dL 11/08/2024 9:03 AM [facility] HEMATOCRIT 40.9 33.0 - 51.0 % 11/08/2024 9:03 AM [facility] MCV 95 80 - 100 fL 11/08/2024 9:03 AM [facility] MCH 31.4 26.0 - 34.0 pg 11/08/2024 9:03 AM [facility] MCHC 33.0 32.0 - 36.0 g/dL 11/08/2024 9:03 AM [facility] RDW 15.3 11.5 - 15.5 % 11/08/2024 9:03 AM [facility] PLATELET COUNT 54(L) 140 - 440 thou/cu mm 11/08/2024 9:03 AM [facility] MPV 10.9 6.5 - 11.0 fL 11/08/2024 9:03 AM [facility] % NEUT 74.9 % 11/08/2024 9:03 AM [facility] % LYMPH 19.5 % 11/08/2024 9:03 AM [facility] % MONO 4.9 % 11/08/2024 9:03 AM [facility] % EOS 0.5 % 11/08/2024 9:03 AM [facility] % BASO 0.2 % 11/08/2024 9:03 AM [facility] ABSOLUTE NEUTROPHILS 8.0(H) 1.7 - 7.0 thou/cu mm 11/08/2024 9:03 AM [facility] ABSOLUTE LYMPHOCYTES 2.1 0.9 - 2.9 thou/cu mm 11/08/2024 9:03 AM [facility] ABSOLUTE MONOCYTES 0.5 <0.9 thou/cu mm 11/08/2024 9:03 AM [facility] ABSOLUTE EOSINOPHILS 0.1 <0.5 thou/cu mm 11/08/2024 9:03 AM [facility] ABSOLUTE BASOPHILS 0.0 <0.3 thou/cu mm 11/08/2024 9:03 AM [facility] Blood BLOOD SPECIMEN / Unknown Butterfly / Unknown 11/08/2024 8:02 AM CDT 11/08/2024 8:13 AM CDT us Doctor Unknown HEMATOLOGY Final Result Performing Organization Address City/State/[facility] Co de Phone Number [facility] [address] [place] [address] * (ABNORMAL) PLATELET ESTIMATE (11/08/2024 8:02 AM CDT) Only the most recent of13 resultswithin the time period is included. Pathologist [facility] PLATELET ESTIMATE Platelets are clumped and appear decreased(A) Adequate, No estimate 11/08/2024 9:03 AM T [facility] Blood BLOOD SPECIMEN / Unknown Butterfly / Unknown 11/08/2024 8:02 AM CDT 11/08/2024 8:13 AM CDT us Doctor Unknown HEMATOLOGY Final Result [facility] [address] [facility] [address] * (ABNORMAL) BASIC METABOLIC PANEL (11/08/2024 8:02 AM CDT) Only the most recent of5 resultswithin the time period is included. SODIUM 139 136 - 145 mmol/L 11/08/2024 8:38 AM [facility] POTASSIUM 4.4 3.5 - 5.1 mmol/L 11/08/2024 8:38 AM [facility] CHLORIDE 106 98 - 107 mmol/L 11/08/2024 8:38 AM [facility] CO2,TOTAL 20(L) 22 - 29 mmol/L 11/08/2024 8:38 AM [facility] ANION GAP 13 5 - 18 11/08/2024 8:38 AM [facility] GLUCOSE 73 70 - 99 mg/dL 11/08/2024 8:38 AM [facility] CALCIUM 8.3(L) 8.8 - 10.4 mg/dL 11/08/2024 8:38 AM [facility] Comment: Reference ranges for this test were updated on 04/04/2024 to reflect our healthy population more accurately. Reference range changes are not retroactively applied to results, but previous results using the same methodology can be interpreted in the context of the new reference range. BUN 20 8 - 23 mg/dL 11/08/2024 8:38 AM [facility] CREATININE 0.67 0.50 - 0.90 mg/dL 11/08/2024 8:38 AM [facility] BUN/CREAT RATIO 30(H) 10 - 20 8:38 AM [facility] eGFR 85(L) >90 mL/min/1. 73m2 11/08/2024 8:38 AM [facility] Comment:As of 2021, eG FR is calculated by the CKD-EPI creatinine equation without race adjustment. eGFR can be influenced by muscle mass, exercise, and diet. The reported eGFR is an estimation only and is only applicable if the renal function is stable. Blood BLOOD SPECIMEN / Unknown Butterfly / Unknown 11/08/2024 8:02 AM CDT 11/08/2024 8:13 AM CDT us Doctor Unknown CHEMISTRY Final Result Performing Organization Address City/[facility]/ZIP Co de Phone Number [facility] [address] [place] [address] * (ABNORMAL) PLATELET COUNT (10/30/2024 7:10 AM CDT) Only the most recent of9 resultswithin the time period is included. PLATELET COUNT 124(L) 140 - 440 thou/cu mm 10/30/2024 9:16 AM CDT [facility] MPV 10/30/2024 9:16 AM CDT [facility] Comment:Unable to be determi noe Blood BLOOD SPECIMEN / Unknown Butterfly / Unknown 10/30/2024 7:10 AM CDT 10/30/2024 7:39 AM CDT Bibiana Bettencourt MD HEMATOLOGY Final Res ult Performing Organization Address City/[facility] Co de Phone Number [facility] [address] [place] [address], * HEMOGLOBIN (10/30/2024 7:10 AM CDT) Only the most recent of8 resultswithin the time period is included. HEMOGLOBIN 13.2 12.0 - 16.0 g/dL 10/30/2024 9:16 AM CDT [facility] MCV 93 80 - 100 fL 10/30/2024 9:16 AM CDT [facility] Blood BLOOD SPECIMEN / Unknown Butterfly / Unknown 10/30/2024 7:10 AM CDT 10/30/2024 7:39 AM CDT Bibiana Bettencourt MD HEMATOLOGY Final Res ult Performing Organization Address [facility] Co de Phone Number [facility] [address] [place] [address], [place] * (ABNORMAL) APTT (10/30/2024 7:10 AM CDT) Only the most recent of21 resultswithin the time period is included. APTT 69(H) 25 - 36 sec 10/30/2024 7:58 AM CDT [facility] Blood BLOOD SPECIMEN / Unknown Butterfly / Unknown 10/30/2024 7:10 AM CDT 10/30/2024 7:39 AM CDT Narrative [facility] - 10/30/2024 7:58 AM CDT Therapeutic Range: 59-89 seconds us Bibiana Bettencourt MD HEMATOLOGY Final Res ult Performing Organization Address [facility] Co de Phone Number [facility] [address] [place] [address], [place] * GLUCOSE METER (10/30/2024 6:30 AM CDT) Only the most recent of42 resultswithin the time period is included. GLUCOSE METER 78 65 - 100 mg/dL 10/30/2024 10:52 AM CDT [facility] Blood BLOOD SPECIMEN / Unknown 10/30/2024 6:30 AM CDT 10/30/2024 10:52 AM CDT us Bibiana Bettencourt MD CHEMISTRY Final Res ult Performing Organization Address City/[facility] Co de Phone Number [facility] [address] [place] [address], [place] * SCAN-CARDIAC STRIP (10/30/2024 2:01 AM CDT) Scanner OTHER Final Result * (ABNORMAL) WBC AM (10/29/2024 12:04 PM CDT) Only the most recent of8 resultswithin the time period is included. WHITE BLOOD COUNT 12.5(H) 4.5 - 11.0 thou/cu mm 10/29/2024 3:53 PM CDT [facility] NRBC 0.0 % 10/29/2024 3:53 PM CDT [facility] ABS NRBC 0.0 thou /cu mm 10/29/2024 3:53 PM CDT [facility] Blood BLOOD SPECIMEN / Unknown Venipuncture / Unknown 10/29/2024 12:04 PM CDT 10/29/2024 12:55 PM CDT us Bibiana Bettencourt MD HEMATOLOGY Final Res ult [facility] [address] [place] [address], * SCAN-CARDIAC STRIP (10/29/2024 6:00 AM CDT) us Scanner OTHER Final Result * XR VIDEO SWALLOW AND TREATMENT W SPEECH (10/28/2024 11:45 AM CDT) Anatomical Region Laterality Modality Esophagus Digital Radiogra phy Narrative 10/28/2024 12:10 PM CDT Indication: Assess swallowing function. Findings: Fluoroscopy was provided for a video swallow. Single episode of laryngeal penetration with thin liquids from residual contrast in the upper esophagus. Please see speech pathology for a full report. 1 image and multiple cine clips obtained. 2.1 minutes of fluoroscopy time. us George Carroll MD FLUOROSCOPY Final Res ult * EXTRA TUBE BLUE (10/28/2024 10:26 AM CDT) Only the most recent of3 resultswithin the time period is included. Blood BLOOD SPECIMEN / Unknown Extra Tube / Unknown 10/28/2024 10:26 AM CDT 10/28/2024 10:32 AM CDT us Bibiana Bettencourt MD LABORATORY Final Res ult Performing Organization Address City/[facility]/ZIP Co de Phone Number [facility] [address] [place] [address], * (ABNORMAL) Sodium AM (10/28/2024 8:33 AM CDT) Only the most recent of3 resultswithin the time period is included. SODIUM 133(L) 136 - 145 mmol/L 10/28/2024 9:09 AM CDT [facility] Blood BLOOD SPECIMEN / Unknown Line/Port / Unknown 10/28/2024 8:33 AM CDT 10/28/2024 8:45 AM CDT us Bibiana Bettencourt MD CHEMISTRY Final Res ult Performing Organization Address [facility] Co de Phone Number [facility] [address] [place] [address], [place] * SCAN-CARDIAC STRIP (10/28/2024 12:58 AM CDT) us Scanner OTHER Final Result * PACER TOMMIE DUAL CHAMBER WO REPROG (10/27/2024 3:50 PM CDT) Narrative Patel Delgado MD - 10/27/2024 3:50 PM CDT Patel Delgado MD 10/28/2024 8:33 PM PACEMAKER EVALUATION REPORT 10/27/2024 Summary: Normal pacemaker function. Lead trends stable. No true VT detections. Two episodes of SVT : 10/14/24- 7 beats of SVT rate ~ 208 bpm and 10/08/24 - 18 beats of SVT rates ~167-220 bpm.. One viewable episode of atrial high rates on 10/24/24. No arrhythmias on 10/27/24. EF 67% on 12/15/2023. 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 LRL at 50 bpm. Estimated 7.5 years battery longevity remaining. Indication for Pacemaker: AV Node dysfunction; new LBBB post TAVR Primary MD: Janelle Crawford MD Primary Manufacturing Quality Engineer: Lc Emerson MD Implanting MD: Virgil Hernandez MD DEVICE DATA Research Psychologist [employer]: Model: Adapta ADDRL Implant Date 02/10/2016 LEAD DATA Atrial Lead: Research Psychologist [employer]: Model: 5076 - 45 cm Implant Date 02/10/2016 RV Lead: Research Psychologist [employer]: Model: 5076 - 52 cm Implant Date 02/10/2016 Visit location: [facility] Reason For Evaluation: MD Request- low heart rate and code blue today MEASUREMENTS Atrial Sensing - P wave: 2.8-4.0 mV Atrial Capture: 0.5 V @ 0.4 ms Atrial Lead Impedance: 382 ohms Ventricular Sensing - R wave: 5.6-8.0 mV Ventricular Capture: 0.75 V @ 0.4 ms Ventricular Lead Impedance: Right - 497 ohms Presenting/Underlying Rhythm: Sinus Rhythm ~61 bpm with 1:1 conduction DIAGNOSTIC DATA - since 10/06/24 Atrial paced: 5.1% Ventricular paced: 0.4% Atrial episodes: 6 Atrial high rates for a <0.1% burden. Longest episode lasting ~3 minutes 22 seconds on 10/24/24 at 2:20 pm. The only viewable egm is the longest episode and the egm suggests frequent PACS . Associated Symptoms: none Ventricular episodes (detects >180 bpm x 5 beats): 2 episodes. 10/14/24- 7 beats of SVT rate ~ 208 bpm 10/08/24 - 18 beats of SVT rates ~167-220 bpm. Associated Symptoms: none r Sensor response: Appropriate heart rate distribution with sensor off. Magnet rate: 85 bpm Battery voltage: 2.78 V Estimated battery longevity: 7.5 years FINAL PARAMETERS Mode: AAI <=> DDD Lower rate: 50 bpm Upper rate: 130/130 bpm AV Delay: 150/120 ms Mode Switch: 175 bpm Rate Response: Mode switch only (Med/Low, 3/3) Atrial - Amplitude: Adaptive 1.5 V Pulse width: 0.4 ms Sensitivity: Auto, 0.5 mV Refractory: Auto, 250 ms Polarity: Bipolar Ventricular - Amplitude: Adaptive 2 V Pulse width: 0.4 ms Sensitivity: Auto, 2.8 mV Refractory: 230 ms Polarity: Bipolar Changes made:Device temporarily reprogrammed, iterative adjustments made during interrogation/testing. No permanent changes made. Follow up: 4 month remote provided. Patient reports being unsure if she will be able to continue with manual remote transmission. Routine follow up: Every 4 months via [facility] (manual send) with annual [place] each September. Meri Torres, RN Nurse Clinician II I Pacemaker/ICD Clinic [phone] Patel Delgado MD CARDIAC SERVICES OR D Final Result * SCAN-CARDIAC STRIP (10/27/2024 11:02 AM CDT) us Scanner OTHER Final Result * (ABNORMAL) TROPONIN T (HS) ONE TIME (10/27/2024 9:53 AM CDT) Only the most recent of2 resultswithin the time period is included. TROPONIN T HS 52(H) 6-10 ng/L ng/L 10/27/2024 10:28 AM CDT [facility] Blood BLOOD SPECIMEN / Unknown Non-Lab Venipuncture / Unknown 10/27/2024 9:53 AM CDT 10/27/2024 10:02 AM CDT Narrative [facility] - 10/27/2024 10:28 AM CDT hs-cTnT (Elecsys Troponin T Gen 5) concentration (s) above the sex-specific 99th percentile (16 ng/L or greater for males or 11 ng/L or greater for females) are indicative of myocardial injury. If initial hs-cTnT <=100 ng/L at presentation, a 0h/2h ABSOLUTE (ng/L) delta change (rising or falling) of >=10 ng/L suggests a significant change, whereas a 0h/2h delta change <=3 ng/L suggests no significant change. If initial hs-cTnT >100 ng/L at presentation, a 0h/2h/ RELATIVE (percent, %) delta change of 20% is suggested to distinguish patients with acute vs. chronic myocardial injury. There are multiple etiologies that can cause hs-cTnT increases above the 99th percentile (myocardial injury) other than acute myocardial infarction. Clinical context and careful clinical evaluation are critical for diagnosis and risk-stratification. The diagnosis of acute myocardial infarction requires a rising and/or falling pattern in hs-cTnT concentrations with at least one value above the sex-specific 99th percentile PLUS at least one of the following clinical criteria: ischemic symptoms, new or presumed new significant ST-T wave changes or new LBBB, development of pathological Q waves, imaging evidence of new loss of viable myocardium or new regional wall motion abnormality, or identification of intracoronary atherothrombosis or an acute angiographic culprit on coronary angiography. In appropriate low-risk patients with a non-ischemic electrocardiogram without active chest pain with a symptom onset >3-hours without recurrence, a single initial hs-cTnT<6 ng/L identifies patient with a very low risk in emergency department patient population. Trevon Larson MD CHEMISTRY Final Result Performing Organization Address City/[facility]/ZIP Co de Phone Number [facility] [address] [address], [place] * Lactate, Venous - RESERVATIONS SALES AGENT (10/27/2024 9:53 AM CDT) Only the most recent of2 resultswithin the time period is included. LACTATE,VENOUS 1.8 0.5 - 2.0 mmol/L 10/27/2024 10:26 AM CDT [facility] Blood BLOOD SPECIMEN / Unknown Non-Lab Venipuncture / Unknown 10/27/2024 9:53 AM CDT 10/27/2024 10:02 AM CDT Lisette Carson MD CHEMISTRY Final Resul t Performing Organization Address City/[facility]/ZIP Co de Phone Number [facility] [address] [address], [place] * AMMONIA (10/27/2024 9:53 AM CDT) Only the most recent of2 resultswithin the time period is included. AMMONIA 28 16 - 60 umol/L 10/27/2024 10:26 AM CDT [facility] Blood BLOOD SPECIMEN / Unknown Non-Lab Venipuncture / Unknown 10/27/2024 9:53 AM CDT 10/27/2024 10:02 AM CDT Narrative [facility] - 10/27/2024 10:26 AM CDT 1. Sulfasalazine and its metabolite Sulfapyridine at therapeutic concentrations may lead to falsely low results. 2. Temozolomide and its metabolite MTIC may lead to falsely elevated results, and its metabolite AIC may lead to falsely low results. us Lisette Carson MD CHEMISTRY Final Resul t [facility] [address] [place] [address], * (ABNORMAL) Arterial Blood Gas - RESERVATIONS SALES AGENT (10/27/2024 9:44 AM CDT) PH, ARTERIAL 7.44 7.35 - 7.45 10/27/2024 10:04 AM CDT [facility] PCO2, ARTERIAL 35 32 - 45 mmHg 10/27/2024 10:04 AM T [facility] PO2, ARTERIAL 121(H) 83 - 108 mmHg 10/27/2024 10:04 AM CDT [facility] HCO3, ARTERIAL 24 21 - 28 mmol/L 10/27/2024 10:04 AM T [facility] BASE EXCESS, ARTERIAL 0.1 -2.0 - 3.0 10/27/2024 10:04 AM T [facility] O2 SATURATION, ARTERIAL 100(H) 94 - 98 % 10/27/2024 10:04 AM T [facility] INSPIRED O2 6 10/27/2024 10:04 AM T [facility] Comment: Unit of Measure: Liters (L) if <=20; Percent (%) if >20 This is an appended report. These results have been appended to a previously final verified report. PATIENT TEMPERATURE 37.0 Degrees C 10/27/2024 10:04 AM T [facility] Blood ARTERIAL BLOOD SPECIMEN / Unknown Non-Lab Venipuncture / Unknown 10/27/2024 9:44 AM CDT 10/27/2024 9:51 AM CDT us Bibiana Bettencourt MD CHEMISTRY Edited Re sult - Final Performing Organization Address [facility] Co de Phone Number [facility] [address] [place] [address], [place] * 12 Lead EKG - RESERVATIONS SALES AGENT (10/27/2024 9:37 AM CDT) Only the most recent of3 resultswithin the time period is included. Interpretation Sinus bradycardia Low voltage QRS Left anterior fascicular block Possible Anterolateral infarct (cited on or before 15-Jun-2024) Abnormal ECG When compared with ECG of 05-Oct-2024 12:11, No significant change was found BEYOND NOW Ventricular Rate 52 BPM BEYOND NOW Atrial Rate 52 BPM BEYOND NOW P-R Interval 172 ms BEYOND NOW QRS Duration 86 ms BEYOND NOW QT 436 ms BEYOND NOW QTc 405 ms BEYOND NOW P Prentiss 37 degrees BEYOND NOW R Prentiss -49 degrees BEYOND NOW T Prentiss 33 degrees BEYOND NOW 10/27/2024 9:37 AM CDT 11/01/2024 12:25 PM CDT us Bibiana Bettencourt MD EKG ORD Final Res ult Performing Organization Address [facility] de Phone Number BEYOND NOW [place], [place] * POTASSIUM (10/27/2024 7:42 AM CDT) Only the most recent of9 resultswithin the time period is included. POTASSIUM 3.7 3.5 - 5.1 mmol/L 10/27/2024 8:15 AM CDT [facility] Blood BLOOD SPECIMEN / Unknown Venipuncture / Unknown 10/27/2024 7:42 AM CDT 10/27/2024 7:48 AM CDT us Bibiana Bettencourt MD CHEMISTRY Final Res ult Performing Organization Address City/[facility] Co de Phone Number [facility] [address] [place] [address], [place] * MAGNESIUM (10/27/2024 7:42 AM CDT) Only the most recent of8 resultswithin the time period is included. MAGNESIUM 1.6 1.6 - 2.4 mg/dL 10/27/2024 8:15 AM CDT [facility] Blood BLOOD SPECIMEN / Unknown Venipuncture / Unknown 10/27/2024 7:42 AM CDT 10/27/2024 7:48 AM CDT us Bibiana Bettencourt MD CHEMISTRY Final Res ult [facility] [address] [place] [address], * (ABNORMAL) COMP METABOLIC PANEL (10/27/2024 7:42 AM CDT) SODIUM 132(L) 136 - 145 mmol/L 10/27/2024 10:07 AM T [facility] POTASSIUM 3.7 3.5 - 5.1 mmol/L 10/27/2024 10:07 AM T [facility] CHLORIDE 100 98 - 107 mmol/L 10/27/2024 10:07 AM T [facility] CO2,TOTAL 22 22 - 29 mmol/L 10/27/2024 10:07 AM T [facility] ANION GAP 10 5 - 18 10/27/2024 10:07 AM T [facility] GLUCOSE 106(H) 70 - 99 mg/dL 10/27/2024 10:07 AM T [facility] CALCIUM 7.4(L) 8.8 - 10.4 mg/dL 10/27/2024 10:07 AM T [facility] Comment: Reference ranges for this test were updated on 04/04/2024 to reflect our healthy population more accurately. Reference range changes are not retroactively applied to results, but previous results using the same methodology can be interpreted in the context of the new reference range. BUN 14 8 - 23 mg/dL 10/27/2024 10:07 AM T [facility] CREATININE 0.72 0.50 - 0.90 mg/dL 10/27/2024 10:07 AM CDT [facility] BUN/CREAT RATIO 19 10 - 20 10:07 AM CDT [facility] eGFR 82(L) >90 mL/min/1. 73m2 10/27/2024 10:07 AM T [facility] Comment:As of 2021, eG FR is calculated by the CKD-EPI creatinine equation without race adjustment. eGFR can be influenced by muscle mass, exercise, and diet. The reported eGFR is an estimation only and is only applicable if the renal function is stable. ALBUMIN 2.1(L) 4.0 - 4.9 g/dL 10/27/2024 10:07 AM CDT [facility] PROTEIN,TOTAL 3.8(L) 6.0 - 8.0 g/dL 10/27/2024 10:07 AM T [facility] BILIRUBIN,TOTAL 0.7 0.0 - 1.2 mg/dL 10/27/2024 10:07 AM CDT [facility] ALK PHOSPHATASE 63 35 - 104 IU/L 10/27/2024 10:07 AM CDT [facility] ALT (SGPT) 20 10 - 35 IU/L 10/27/2024 10:07 AM CDT [facility] AST (SGOT) 27 10 - 35 IU/L 10/27/2024 10:07 AM T [facility] Blood BLOOD SPECIMEN / Unknown Venipuncture / Unknown 10/27/2024 7:42 AM CDT 10/27/2024 7:48 AM CDT us Lisette Carson MD CHEMISTRY Final Resul t [facility] [address] [place] [address], * EXTRA TUBE LIGHT GREEN (10/25/2024 12:52 PM CDT) Blood BLOOD SPECIMEN / Unknown Butterfly / Unknown 10/25/2024 12:52 PM CDT 10/25/2024 12:58 PM CDT us Doctor Unknown LABORATORY Final Result [employer] [facility] [address] [place] [address], * PATH TISSUE EXAM (10/25/2024 10:35 AM CDT) Case Report Pathology Report Case: [id number] Authorizing Provider: George Stuart MD Collected: 10/25/2024 1035 Ordering Location: [facility] Received: 10/25/2024 1108 [facility] Pathologist: Natalya Villar MD Specimen: Esophagus, esophgus biopsy 10/27/2024 8:38 AM CDT [facility] Final Diagnosis A) ESOPHAGUS, BIOPSY: 1. Margarita esophagitis 2. 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 Negative for reflux changes and eosinophilic esophagitis 4. Negative for columnar mucosa 10/27/2024 8:38 AM CDT [facility] at 0838 CDT Clinical Information Dysphagia. Upper GI endoscopy showed likely Margarita esophagitis. 10/27/2024 8:38 AM CDT [facility] Gross Description A) Received in formalin is a lott mucosal fragment measuring 2 mm in greatest dimension, which is entirely submitted in one cassette. It is labeled with the patient's name and designated esophagus biopsy. Samantha Zulma 10/25/2024 2:42 PM 10/27/2024 8:38 AM CDT [facility] Microscopic Description The final diagnosis is based on microscopic examination of appropriate sections of all specimens. 10/27/2024 8:38 AM CDT [facility] Additional Information [facility] - [address], [place] [address] 10/27/2024 8:38 AM CDT [facility] Tissue SPECIMEN FROM ESOPHAGUS / Unknown 10/25/2024 10:35 AM CDT 10/25/2024 11:08 AM CDT George Stuart MD PATHOLOGY/CYTOLOGY Final Re sult [facility] [address] [place] [address], [place] * ENDOSCOPY (10/25/2024 10:08 AM CDT) 10/25/2024 10:0 8 AM CDT Narrative Transcriptions George Stuart MD - 10/25/2024 10:41 AM CDT [facility] Patient Name: Kajal Francois Procedure Date: 10/25/2024 Gender: Female Date of : 1940 Admit Type: Inpatient Procedure: Upper GI endoscopy Proceduralist: George Stuart MD - [facility] Indications/Pre-Op Diagnosis: Dysphagia Medications: Propofol per Anesthesia Procedure Description: Risk of bleeding, infection, perforation, need for surgery and alternatives discussed. The endosocpe [id number] was introduced through the mouth, and advanced to the jejunum. The upper GI endoscopy was accomplishedwithout difficulty. The patient tolerated the procedure well. Complications: No immediate complications. Estimated Blood Loss & Specimen: Estimated blood loss: none. Specimen collected: Yes and sent to Laboratory Findings: Diffuse, white plaques were found in the upper third of theesophagus, in the middle third of the esophagus and in the lower third of the esophagus. Biopsies were taken with a cold forceps for histology. 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 Thegastrojejunal anastomosis was characterized by healthy appearing mucosa. This was traversed. The examined jejunum was normal. Impressions/Post-Op Diagnosis: Likely margarita esophagitis, biopsied to confirm. No obviousesophageal stenosis to perform targeted dilation. Recommendation: - Await pathology results. George Stuart MD 10/25/2024 10:41:48 AM This report has been signed electronically. Note Initiated On: 10/25/2024 10:08 AM us George Stuart MD PROCEDURE ORD Final Resul t * (ABNORMAL) BLOOD GAS,VENOUS (10/24/2024 9:51 PM CDT) PH, VENOUS 7.45(H) 7.32 - 7.43 10/24/2024 10:05 PM CDT [facility] PCO2, VENOUS 37(L) 41 - 51 mmHg 10/24/2024 10:05 PM CDT [facility] PO2, VENOUS 58(H) 35 - 40 mmHg 10/24/2024 10:05 PM CDT [facility] HCO3,VENOUS 26 22 - 29 mmol/L 10/24/2024 10:05 PM CDT [facility] BASE EXCESS, VENOUS, POCT 1.8 -2.0 - 3.0 10/24/2024 10:05 PM CDT [facility] O2 SATURATION, VENOUS 93(H) 70 - 75 % 10/24/2024 10:05 PM CDT [facility] PATIENT TEMPERATURE 37.0 Degrees C 10/24/2024 10:05 PM CDT [facility] Blood VENOUS BLOOD SPECIMEN / Unknown Diversion Device / Unknown 10/24/2024 9:51 PM CDT 10/24/2024 9:56 PM CDT us Bibiana Bettencourt MD CHEMISTRY Final Res ult [facility] [address] [place] [address], [place] * CT HEAD BRAIN WO (10/24/2024 7:00 PM CDT) Only the most recent of2 resultswithin the time period is included. Anatomical Region Laterality Modality HEAD, BRAIN Computed Tomogra phy 10/24/2024 7:18 PM CDT Impressions 10/24/2024 7:18 PM CD[address] No CT evidence of acute intracranial abnormality. 2. Similar generalized cerebral volume loss and chronic microangiopathy changes. Please note that all CT scans at this facility use dose modulation, iterative reconstruction, and/or weight-based dosing when appropriate to reduce radiation dose to as low as reasonably achievable. Dictated by Sindy Buckley MD @ 10/24/2024 7:18:50 PM (Electronically Signed) Narrative 10/24/2024 7:18 PM CDT For Patients: As a result of the Cures Act, medical imaging exams and procedure reports are released immediately into your electronic medical record. You may view this report before your referring provider. If you have questions, please contact your health care provider. INDICATION: Suspected stroke TECHNIQUE: Noncontrast axial CT of the head. Coronal and sagittal reformats. Bone and soft tissue algorithms. COMPARISON: CT head 10/05/2024 FINDINGS: Prominence of the ventricles and cortical sulci compatible with generalized cerebral volume loss. No midline shift or mass effect. No acute intracranial hemorrhage or extra-axial fluid collection. Lobato-white matter differentiation is grossly maintained. Patchy hypoattenuation throughout the cerebral white matter, typical of chronic microangiopathy. Calcific intracranial atherosclerotic plaquing. Empty sella configuration. The calvarium appears grossly intact. Paranasal sinuses and mastoid air cells are clear. Enophthalmos with bilateral lens implants. Procedure Note Sindy Buckley DO - 10/24/2024 For Patients: As a result of the 21st Century Cures Act, medical imagingexams and procedure reports are released immediately into your electronicmedical record. You may view this report before your referring provider.If you have questions, please contact your health care provider. INDICATION: Suspected stroke TECHNIQUE: Noncontrast axial CT of the head. Coronal and sagittal reformats. Bone andsoft tissue algorithms. COMPARISON: CT head 10/05/2024 FINDINGS: Prominence of the ventricles and cortical sulci compatible withgeneralized cerebral volume loss. No midline shift or mass effect. Noacute intracranial hemorrhage or extra-axial fluid collection. Lobato-whitematter differentiation is grossly maintained. Patchy hypoattenuationthroughout the cerebral white matter, typical of chronicmicroangiopathy. Calcific intracranial atherosclerotic plaquing. Empty sella configuration.The calvarium appears grossly intact. Paranasal sinuses and mastoid aircells are clear. Enophthalmos with bilateral lens implants. IMPRESSION: 1. No CT evidence of acute intracranial abnormality. 2. Similar generalized cerebral volume loss and chronic microangiopathychanges. Please note that all CT scans at this facility use dose modulation,iterative reconstruction, and/or weight-based dosing when appropriate toreduce radiation dose to as low as reasonably achievable. Dictated by Sindy Buckley MD @ 10/24/2024 7:18:50 PM (Electronically Signed) Bibiana Bettencourt MD CT Final Res ult * HEPARIN LEVEL (10/24/2024 6:19 PM CDT) HEPARIN LEVEL 0.81 See Comment U/mL 10/24/2024 7:03 PM CDT [facility] Blood BLOOD SPECIMEN / Unknown Diversion Device / Unknown 10/24/2024 6:19 PM CDT 10/24/2024 6:31 PM CDT Narrative [facility] - 10/24/2024 7:03 PM CDT UFH IV Infusion Therapeutic VTE: 0.3 - 0.7 U/mL UFH IV Infusion Therapeutic AF/Valve Bridgin.3 - 0.5 U/mL UFH IV Infusion Therapeutic ACS: 0.3 - 0.5 U/mL UFH IV Infusion Therapeutic High Bleeding Risk: 0.3 - 0.5 U/mL UFH IV Infusion Prophylactic: 0.11 - 0.29 U/mL UFH SubQ Therapeutic: 0.56 - 0.68 U/mL UFH SubQ Prophylactic: 0.15 - 0.25 U/mL Critical: >1.00 U/mL Bibiana Bettencourt MD HEMATOLOGY Final Res ult Performing Organization Address [facility] de Phone Number [facility] [address] [address], [place] * (ABNORMAL) Creatinine AM (10/24/2024 7:36 AM CDT) Only the most recent of3 resultswithin the time period is included. Pathologist [facility] eGFR 85(L) >90 mL/min/1.7 3m2 10/24/2024 8:45 AM CDT [facility] Comment:As of 2021, eG FR is calculated by the CKD-EPI creatinine equation without race adjustment. eGFR can be influenced by muscle mass, exercise, and diet. The reported eGFR is an estimation only and is only applicable if the renal function is stable. CREATININE 0.67 0.50 - 0.90 mg/dL 10/24/2024 8:45 AM CDT [facility] Blood BLOOD SPECIMEN / Unknown Butterfly / Unknown 10/24/2024 7:36 AM CDT 10/24/2024 8:17 AM CDT Bibiana Bettencourt MD CHEMISTRY Final Res ult Performing Organization Address [facility] Co de Phone Number [facility] [address] [address], [place] * (ABNORMAL) CBC W PLT NO DIFF (10/23/2024 4:20 AM CDT) Only the most recent of2 resultswithin the time period is included. WHITE BLOOD COUNT 10.5 4.5 - 11.0 thou/cu mm 10/23/2024 5:02 AM CDT [facility] RED BLOOD COUNT 3.53(L) 4.00 - 5.20 mil/cu mm 10/23/2024 5:02 AM CDT [facility] HEMOGLOBIN 11.6(L) 12.0 - 16.0 g/dL 10/23/2024 5:02 AM CDT [facility] HEMATOCRIT 33.6 33.0 - 51.0 % 10/23/2024 5:02 AM CDT [facility] MCV 95 80 - 100 fL 10/23/2024 5:02 AM CDT [facility] MCH 32.9 26.0 - 34.0 pg 10/23/2024 5:02 AM CDT [facility] MCHC 34.5 32.0 - 36.0 g/dL 10/23/2024 5:02 AM CDT [facility] RDW 14.3 11.5 - 15.5 % 10/23/2024 5:02 AM CDT [facility] PLATELET COUNT 205 140 - 440 thou/cu mm 10/23/2024 5:02 AM CDT [facility] MPV 11.6(H) 6.5 - 11.0 fL 10/23/2024 5:02 AM CDT [facility] NRBC 0.0 % 10/23/2024 5:02 AM CDT [facility] ABS NRBC 0.0 thou /cu mm 10/23/2024 5:02 AM T [facility] Blood BLOOD SPECIMEN / Unknown Venipuncture / Unknown 10/23/2024 4:20 AM CDT 10/23/2024 4:26 AM CDT us George Carroll MD HEMATOLOGY Final Res ult [facility] [address] [place] [address], * PROTIME-INR (10/23/2024 4:20 AM CDT) Only the most recent of2 resultswithin the time period is included. INR 1.1 <1.3 10/23/2024 4:43 AM CDT [facility] PROTIME 12.4 10.6 - 12.4 sec 10/23/2024 4:43 AM CDT [facility] Blood BLOOD SPECIMEN / Unknown Venipuncture / Unknown 10/23/2024 4:20 AM CDT 10/23/2024 4:26 AM CDT Narrative [facility] - 10/23/2024 4:43 AM CDT Therapeutic Range 2.0-3.0 for most anticoagulated patients 2.5-3.5 or 4.0 for high risk patients The INR is only used for patients on stable oral anticoagulant therapy. It makes no significant contribution to the diagnosis or treatment of patients whose Protime is prolonged for other reasons. INR results are increased when heparin levels exceed 1.0 U/mL, which corresponds to an aPTT >125 seconds if the patient is on UFH. us George Carroll MD HEMATOLOGY Final Res ult [facility] [address] [place] [address], [place] * US VENOUS LOWER EXTREMITY BILATERAL PORTABLE (10/23/2024 2:48 AM CDT) Anatomical Region Laterality Modality LEGS, LEG L, LEG R Ultrasound 10/23/2024 3:04 AM CDT Impressions 10/23/2024 3:04 AM CDT 1. Acute appearing left lower extremity DVT involving the left proximal to mid femoral vein. 2. No right lower extremity DVT appreciated. Above findings relayed to provider Dr. Carroll via telephone on 10/23/2024 at 3:03 a.m. CDT. Dictated by Matheus Grier MD @ 10/23/2024 2:56:32 AM (Electronically Signed) Narrative 10/23/2024 3:04 AM CDT For Patients: As a result of the Cures Act, medical imaging exams and procedure reports are released immediately into your electronic medical record. You may view this report before your referring provider. If you have questions, please contact your health care provider. INDICATION: Bilateral lower extremity swelling. TECHNIQUE: Ultrasound venous duplex bilateral lower extremity. Compression venous exam was performed using lobato-scale, color Doppler, and spectral Doppler analysis. COMPARISON: Left lower extremity Doppler ultrasound 12/14/2023. FINDINGS: Deep veins: Reduced compression and decreased intraluminal flow within the left proximal to mid femoral vein. The distal left femoral vein is patent, as are the remainder of the left lower extremity deep veins. The deep veins of the right lower extremity are patent without evidence of DVT. Limited evaluation of the calf veins bilaterally.. Superficial veins: Greater saphenous veins are fully compressible. Procedure Note Matheus Grier MD - 10/23/2024 For Patients: As a result of the Cures Act, medical imagingexams and procedure reports are released immediately into your electronicmedical record. You may view this report before your referring provider.If you have questions, please contact your health care provider. INDICATION: Bilateral lower extremity swelling. TECHNIQUE: Ultrasound venous duplex bilateral lower extremity. Compression venousexam was performed using lobato-scale, color Doppler, and spectral Doppleranalysis. COMPARISON: Left lower extremity Doppler ultrasound 12/14/2023. FINDINGS: Deep veins: Reduced compression and decreased intraluminal flow within theleft proximal to mid femoral vein. The distal left femoral vein is patent,as are the remainder of the left lower extremity deep veins. The deepveins of the right lower extremity are patent without evidence of DVT.Limited evaluation of the calf veins bilaterally.. Superficial veins: Greater saphenous veins are fully compressible. IMPRESSION: 1. Acute appearing left lower extremity DVT involving the left proximal tomid femoral vein. 2. No right lower extremity DVT appreciated. Above findings relayed to provider Dr. Carroll via telephone on 10/23/2024t 3:03 a.m. CDT. Dictated by Matheus Grier MD @ 10/23/2024 2:56:32 AM (Electronically Signed) us George Carroll MD [place] Final Res ult * (ABNORMAL) RED CELL MORPHOLOGY (10/22/2024 8:16 PM CDT) Only the most recent of3 resultswithin the time period is included. ACANTHOCYTES Few 10/22/2024 9:57 PM CDT [facility] ELLIPTOCYTES Few 10/22/2024 9:57 PM CDT [facility] RBC COMMENT Present(A) RBC morphology appears normal, RBC morphology within normal limits for newborns. 10/22/2024 9:57 PM CDT [facility] WBC REACTIVE LYMPHS Present 10/22/2024 9:57 PM CDT [facility] Blood BLOOD SPECIMEN / Unknown Butterfly / Unknown 10/22/2024 8:16 PM CDT 10/22/2024 8:22 PM CDT us Susie LÓPEZ HEMATOLOGY Final R esult [facility] [address] [place] [address] * ECHO TTE COMPLETE WO CONTRAST (10/06/2024 10:53 AM CDT) AORTIC VALVE MEAN PG 14 mmHg EJECTION FRACTION 69 % PEAK TR VELOCITY 2.4 m/s LVEDD 3.7 cm EJECTION FRACTION 60 - 65% Anatomical Region Laterality Modality Ultrasound 10/06/2024 9:50 AM CDT Narrative 10/06/2024 1:28 PM CDT ECHOCARDIOGRAM KAJAL FRANCOIS : 1940 83 years Study Date: 10/06/2024 9:50:25 AM Gender: F BP: 155/72 mmHg Height: 154.00 cm BSA: 1.68 m Weight: 70.00 kg Tech: PM Referring MD: RAMIN OSBORNE Site: [facility] Reading [facility] Patient Location: Inpatient. Procedure: 2D, Color Doppler and Spectral Doppler. Indication for study: History of TAVR. Increased LE edema, lightheadedness Cardiac Rhythm: Normal sinus.Study quality: Good. Imaging limitations: This study was subject to imaging limitations due to lying in a supine position. Final Impressions: 1. LVEF 60-65%. 2. Preserved RV function. 3. TAVR with 26 mm S3. No stenosis [V-max 2.5 m/s and MG 14 mmHg] and no AI. 4. Small pericardial effusion anterior to RV. No tamponade. 5. IVC not seen. Chamber Sizes and Function No resting regional wall motion abnormality visualized. Left atrial size is moderately enlarged. Left atrial pressure is normal. Right ventricular cavity size is normal, global systolic RV function is normal. Pacing wire/catheter visualized in the right ventricle. The right atrium is normal. Right atrial area is 11 cm . The pulmonary artery is not well visualized. The sinus of Valsalva is normal sized. The ascending aorta is not well visualized. Valves, RV Pressures and Diastolic Function The aortic valve is functioning 26 mm Nicolle Valve , no stenosis and no regurgitation. AT 91ms, DI 0.5. The mitral valve is sclerotic, trace mitral regurgitation. Mitral annular calcification is present. Indeterminate pattern of LV diastolic filling. MAC present. The tricuspid valve is not well visualized, mild tricuspid regurgitation. The tricuspid regurgitant velocity is 2.4 m/s, the estimated right ventricular systolic pressure is 23 mmHg plus right atrial pressure. The pulmonic valve is not well visualized. No pulmonary regurgitation. TTE images appear adequate for transcather intervention with patient supine. Masses, Effusion, Shunts There is small pericardial effusion. Anterior to the right ventricle. There is a significant pericardial fat pad present. The inferior vena cava is not well visualized, respiratory size variation not well visualized. No left to right shunting was detected by limited color flow Doppler interrogation of the interatrial septum. MEASUREMENTS AND CALCULATIONS 2-D Measurements and LV Function: LVID (d) 3.7 cm LV FS% (2D) 38 % LVID (s) 2.3 cm LVOT diameter 2.1 cm IVS (d) 1.3 cm HR 64 bpm LVPW (d) 1.1 cm LA Vol index 21 ml/m2 Ao Sinus 2.4 cm RA area 11 cm Ao Sinus ULN 3.7 cm * RV Basal Diam 3.7 cm Asc Ao ULN 4.0 cm * LA 4.1 cm * Input age outside of range, reported values correspond to Age = 78 Diastology: Mitral Tissue Doppler E Peak 1.2 m/s e', Septum 0.04 m/s A Peak 1.6 m/s e', Lateral 0.05 m/s E/A 0.7 E/e' Average 24.68 DT 306 msec Aortic Valve: Vmax 2.5 m/s GIULIANA (V) 1.65 cm VTI 0.57 m GIULIANA (I) 1.77 cm LVOT V max 1.2 m/s Max PG 26 mmHg LVOT VTI 0.29 m Mean PG 14 mmHg SV 101 ml Dim Index 0.51 SV index 60 ml/m CO 6.5 l/min CI 3.8 l/min/m Mitral Valve: MVA 2.5 cm MV P 1/2 89 msec MV Mean G 3 mmHg MV VTI 0.46 m Tricuspid Valve and estimated PA pressures: TR Vmax 2.4 m/s TAPSE 2.2 cm TR maxG 23 mmHg . This study was interpreted by an [facility] accredited facility. Final Procedure Note Redd Gallagher MD - 10/06/2024 ECHOCARDIOGRAM KAJAL FRANCOIS : 1940 83 years Study Date: 10/06/2024 9:50:25 AM Gender: F BP: 155/72 mmHg Height: 154.00 cm BSA: 1.68 m Weight: 70.00 kg Tech: PM Referring MD: RAMIN OSBORNE Site: [facility] Reading Location: [facility] Patient Location: Inpatient. Procedure: 2D, Color Doppler and Spectral Doppler. Indication for study: History of TAVR. Increased LE edema,lightheadedness Cardiac Rhythm: Normal sinus.Study quality: Good. Imaging limitations: This study was subject to imaging limitations due tolying in a supine position. Final Impressions: 1. LVEF 60-65%. 2. Preserved RV function. 3. TAVR with 26 mm S3. No stenosis [V-max 2.5 m/s and MG 14 mmHg] and noAI. 4. Small pericardial effusion anterior to RV. No tamponade. 5. IVC not seen. Chamber Sizes and Function No resting regional wall motion abnormality visualized. Left atrial sizeis moderately enlarged. Left atrial pressure is normal. Right ventricularcavity size is normal, global systolic RV function is normal. Pacingwire/catheter visualized in the right ventricle. The right atrium isnormal. Right atrial area is 11 cm . The pulmonary artery is not wellvisualized. The sinus of Valsalva is normal sized. The ascending aorta isnot well visualized. Valves, RV Pressures and Diastolic Function The aortic valve is functioning 26 mm Nicolle Valve , no stenosis and noregurgitation. AT 91ms, DI 0.5. The mitral valve is sclerotic, tracemitral regurgitation. Mitral annular calcification is present.Indeterminate pattern of LV diastolic filling. MAC present. The tricuspidvalve is not well visualized, mild tricuspid regurgitation. The tricuspidregurgitant velocity is 2.4 m/s, the estimated right ventricular systolicpressure is 23 mmHg plus right atrial pressure. The pulmonic valve is notwell visualized. No pulmonary regurgitation. TTE images appear adequatefor transcather intervention with patient supine. Masses, Effusion, Shunts There is small pericardial effusion. Anterior to the right ventricle.There is a significant pericardial fat pad present. The inferior vena cavais not well visualized, respiratory size variation not well visualized. Noleft to right shunting was detected by limited color flow Dopplerinterrogation of the interatrial septum. MEASUREMENTS AND CALCULATIONS 2-D Measurements and LV Function: LVID (d) 3.7 cm LV FS% (2D) 38% LVID (s) 2.3 cm LVOT diameter2.1 cm IVS (d) 1.3 cm HR 64bpm LVPW (d) 1.1 cm LA Vol index 21ml/m2 Ao Sinus 2.4 cm RA area 11cm Ao Sinus ULN 3.7 cm * RV Basal Diam3.7 cm Asc Ao ULN 4.0 cm * LA 4.1 cm * Input age outside of range, reported values correspond to Age = 78 Diastology: Mitral Tissue Doppler E Peak 1.2 m/s e', Septum 0.04 m/s A Peak 1.6 m/s e', Lateral 0.05 m/s E/A 0.7 E/e' Average 24.68 DT 306 msec Aortic Valve: Vmax 2.5 m/s GIULIANA (V) 1.65 cm VTI 0.57 m GIULIANA (I) 1.77 cm LVOT V max 1.2 m/s Max PG 26 mmHg LVOT VTI 0.29 m Mean PG 14 mmHg SV 101 ml Dim Index 0.51 SV index 60 ml/m CO 6.5 l/min CI 3.8 l/min/m Mitral Valve: MVA 2.5 cm MV P 1/2 89 msec MV Mean G 3 mmHg MV VTI 0.46 m Tricuspid Valve and estimated PA pressures: TR Vmax 2.4 m/s TAPSE 2.2 cm TR maxG 23 mmHg . This study was interpreted by an [facility] accredited facility. Final us Ramin Osborne MD ECHO ORD Final Res ult * PACER TOMMIE DUAL CHAMBER WO REPROG (10/06/2024 9:19 AM CDT) Narrative Virgil Hernandez MD - 10/06/2024 9:19 AM CDT Virgil Hernandez MD 10/13/2024 10:43 AM PACEMAKER EVALUATION REPORT 10/06/2024 Summary: Normal pacemaker function. Lead trends stable. No true VT detections. EF 67% on 12/15/2023. AP 21.7%, HELMINTHOLOGY TEACHER 0.3%. Estimated 7.5 years battery longevity remaining. Indication for Pacemaker: AV Node dysfunction; new LBBB post TAVR Primary MD: Janelle Crawford MD Primary Manufacturing Quality Engineer: Lc Emerson MD Implanting MD: Virgil Hernandez MD DEVICE DATA Research Psychologist [employer]: Model: Adapta ADDRL Implant Date 02/10/2016 LEAD DATA Atrial Lead: Research Psychologist [employer]: Model: 5076 - 45 cm Implant Date 02/10/2016 RV Lead: Research Psychologist [employer]: Model: 5076 - 52 cm Implant Date 02/10/2016 Visit location: [facility] Reason For Evaluation: MD Request MEASUREMENTS Atrial Sensing - P wave: >2.8 mV Atrial Capture: 0.5 V @ 0.4 ms Atrial Lead Impedance: 354 ohms Ventricular Sensing - R wave: 4-5.6 mV Ventricular Capture: 1 V @ 0.4 ms Ventricular Lead Impedance: Right - 536 ohms Presenting/Underlying Rhythm: Sinus Rhythm ~65 bpm with 1:1 conduction DIAGNOSTIC DATA - since 06/09/2024 Atrial paced: 21.7% Ventricular paced: 0.2% Atrial episodes: 6 Atrial high rates for a <0.1% burden. Longest episode lasting ~1.5 minutes in duration. Viewable EGM's/Markers suggest SVT w/ 1:1 conduction. Associated Symptoms: Denies awareness Ventricular episodes (detects >180 bpm x 5 beats): 5 episodes. EGM's/Markers suggest short bursts of SVT. Associated Symptoms: none reported Sensor response: Appropriate heart rate distribution with sensor off. Magnet rate: 85 bpm Battery voltage: 2.78 V Estimated battery longevity: 7.5 years FINAL PARAMETERS Mode: AAI <=> DDD Lower rate: 50 bpm Upper rate: 130/130 bpm AV Delay: 150/120 ms Mode Switch: 175 bpm Rate Response: Mode switch only (Med/Low, 3/3) Atrial - Amplitude: Adaptive 1.5 V Pulse width: 0.4 ms Sensitivity: Auto, 0.5 mV Refractory: Auto, 250 ms Polarity: Bipolar Ventricular - Amplitude: Adaptive 2 V Pulse width: 0.4 ms Sensitivity: Auto, 2.8 mV Refractory: 230 ms Polarity: Bipolar Changes made:Device temporarily reprogrammed, iterative adjustments made during interrogation/testing. No permanent changes made. Follow up: 4 month remote provided Routine follow up: Every 4 months via [employer] (manual send) with annual [place] each September. Baljit Jo, RN Nurse Clinician II [facility] [phone] Virgil Hernandez MD CARDIAC SERVICES ORD Fin al Result * PHOSPHORUS (10/06/2024 12:52 AM CDT) PHOSPHORUS 3.3 2.5 - 4.5 mg/dL 10/06/2024 10:13 AM CDT [facility] Blood BLOOD SPECIMEN / Unknown Venipuncture / Unknown 10/06/2024 12:52 AM CDT 10/06/2024 1:06 AM CDT Jose Luis Lozano DO CHEMISTRY Final Result [facility] [address] [place] [address], [place] * (ABNORMAL) UA W/ SEDIMENT EXAM REFLEXED PER CRITERIA (10/05/2024 2:55 PM CDT) Only the most recent of2 resultswithin the time period is included. COLOR Yellow Yellow Color 10/05/2024 3:03 PM T [facility] CLARITY Clear Clear Clarity 10/05/2024 3:03 PM T [facility] SPECIFIC GRAVITY,URINE >=1.030(A) 1.010, 1.015, 1.020, 1.025 10/05/2024 3:03 PM [facility] PH,URINE 5.5 6.0, 7.0, 8.0, 5.5, 6.5, 7.5, 8.5 10/05/2024 3:03 PM [facility] UROBILINOGEN, QUALITATIVE Normal Normal EU/dl 10/05/2024 3:03 PM [facility] PROTEIN, URINE Negative Negative mg/dL 10/05/2024 3:03 PM [facility] GLUCOSE, URINE Negative Negative mg/dL 10/05/2024 3:03 PM [facility] KETONES,URINE Negative Negative mg/dL 10/05/2024 3:03 PM [facility] BILIRUBIN,URI NE Negative Negative 10/05/2024 3:03 PM [facility] OCCULT BLOOD,URINE Negative Negative 10/05/2024 3:03 PM [facility] NITRITE Negative Negative 10/05/2024 3:03 PM [facility] LEUKOCYTE ESTERASE Negative Negative 10/05/2024 3:03 PM [facility] Urine URINE SPECIMEN / Unknown Non-Blood / Unknown 10/05/2024 2:55 PM CDT 10/05/2024 3:00 PM CDT us Adrian Jose MD URINE Final Result [facility] [address] [place] [address] * COVID-19 MOLECULAR (10/05/2024 2:51 PM CDT) Only the most recent of2 resultswithin the time period is included. Pathologist [facility] COVID 19 [place] MOLECULAR Not detected Not detected 10/05/2024 3:15 PM CDT [facility] TESTING LABORATORY [facility] 10/05/2024 3:15 PM CDT [facility] Comment:Specimen submitted t o [facility] for testing. Other SPECIMEN FROM NASOPHARYNGEAL STRUCTURE / Unknown Non-Blood / Unknown 10/05/2024 2:51 PM CDT 10/05/2024 2:54 PM CDT Adrian Jose MD MICROBIOLOGY Final Result Performing Organization Address [facility]/ZIP Co de Phone Number [facility] [address] [place] [address] * INFLUENZA A/B PCR (10/05/2024 2:51 PM CDT) Only the most recent of2 resultswithin the time period is included. [facility] INFLUENZA A PCR NOT Detected 10/05/2024 3:15 PM CDT [facility] INFLUENZA B PCR NOT Detected 10/05/2024 3:15 PM CDT [facility] Other SPECIMEN FROM NASOPHARYNGEAL STRUCTURE / Unknown Non-Blood / Unknown 10/05/2024 2:51 PM CDT 10/05/2024 2:54 PM CDT Adrian Jose MD MICROBIOLOGY Final Result Performing Organization Address [facility] Co de Phone Number [facility] [address] [place] [address] * XR CHEST 1 VIEW PORTABLE (10/05/2024 2:40 PM CDT) Anatomical Region Laterality Modality HEART, THORAX, CHEST Digital Rad iography 10/05/2024 2:49 PM CDT Narrative 10/05/2024 2:49 PM CDT For Patients: As a result of the Cures Act, medical imaging exams and procedure reports are released immediately into your electronic medical record. You may view this report before your referring provider. If you have questions, please contact your health care provider. Indication: Shortness of breath Technique: Chest 1 view Comparison: Chest x-ray 12/14/2023 Findings/Impression: Cardiovascular and mediastinum: Cardiomegaly with left-sided dual lead pacemaker. Status post aortic valve surgery. Atherosclerosis. Mild prominence of the right superior mediastinum, likely tortuous vasculature. Lungs and pleural space: Elevated right hemidiaphragm with likely colonic interposition. No pneumothorax. Scattered areas of discoid atelectasis. Bones and soft tissues: Status post distal left clavicular resection with attachment hook in the left proximal humerus. Upper abdominal suture material. Dictated by Johny Ryan MD @ 10/05/2024 2:49:20 PM (Electronically Signed) Procedure Note Johny Ryan MD - 10/05/2024 For Patients: As a result of the Cures Act, medical imagingexams and procedure reports are released immediately into your electronicmedical record. You may view this report before your referring provider.If you have questions, please contact your health care provider. Indication: Shortness of breath Technique: Chest 1 view Comparison: Chest x-ray 12/14/2023 Findings/Impression: Cardiovascular and mediastinum: Cardiomegaly with left-sided dual leadpacemaker. Status post aortic valve surgery. Atherosclerosis. Mildprominence of the right superior mediastinum, likely tortuous vasculature. Lungs and pleural space: Elevated right hemidiaphragm with likely colonicinterposition. No pneumothorax. Scattered areas of discoid atelectasis. Bones and soft tissues: Status post distal left clavicular resection withattachment hook in the left proximal humerus. Upper abdominal suturematerial. Dictated by Johny Ryan MD @ 10/05/2024 2:49:20 PM (Electronically Signed) Adrian Jose MD GENERAL IMAGING Final Result * (ABNORMAL) TROPONIN T (HS) ACUTE W/2HR REFLEX (10/05/2024 1:23 PM CDT) TROPONIN T HS 51(H) 6-10 ng/L ng/L 10/05/2024 2:00 PM CDT [facility] Blood BLOOD SPECIMEN / Unknown Butterfly / Unknown 10/05/2024 1:23 PM CDT 10/05/2024 1:28 PM CDT [facility] - 10/05/2024 2:00 PM CDT hs-cTnT (Elecsys Troponin T Gen 5) concentration (s) above the sex-specific 99th percentile (16 ng/L or greater for males or 11 ng/L or greater for females) are indicative of myocardial injury. If initial hs-cTnT <=100 ng/L at presentation, a 0h/2h ABSOLUTE (ng/L) delta change (rising or falling) of >=10 ng/L suggests a significant change, whereas a 0h/2h delta change <=3 ng/L suggests no significant change. If initial hs-cTnT >100 ng/L at presentation, a 0h/2h/ RELATIVE (percent, %) delta change of 20% is suggested to distinguish patients with acute vs. chronic myocardial injury. There are multiple etiologies that can cause hs-cTnT increases above the 99th percentile (myocardial injury) other than acute myocardial infarction. Clinical context and careful clinical evaluation are critical for diagnosis and risk-stratification. The diagnosis of acute myocardial infarction requires a rising and/or falling pattern in hs-cTnT concentrations with at least one value above the sex-specific 99th percentile PLUS at least one of the following clinical criteria: ischemic symptoms, new or presumed new significant ST-T wave changes or new LBBB, development of pathological Q waves, imaging evidence of new loss of viable myocardium or new regional wall motion abnormality, or identification of intracoronary atherothrombosis or an acute angiographic culprit on coronary angiography. In appropriate low-risk patients with a non-ischemic electrocardiogram without active chest pain with a symptom onset >3-hours without recurrence, a single initial hs-cTnT<6 ng/L identifies patient with a very low risk in emergency department patient population. Adrian Jose MD CHEMISTRY Final Result [facility] [address] [place] [address] * TSH WITH REFLEX (10/05/2024 1:23 PM CDT) TSH 2.73 0.27 - 4.20 uIU/mL 10/05/2024 2:00 PM CDT [facility] Blood BLOOD SPECIMEN / Unknown Butterfly / Unknown 10/05/2024 1:23 PM CDT 10/05/2024 1:28 PM CDT [facility] - 10/05/2024 2:00 PM CDT In Adults, TSH values between 5.00 and 10.00 uIU/ml do not necessarily indicate the presence of Hypothyroidism. Correlation with clinical findings such as presence of goiter and/or Thyroperoxidase (TPO) Antibody may be helpful. For more information please refer to DOUGLAS 2004; 291: 228-238. Adrian Jose MD CHEMISTRY Final Result Performing Organization Address [facility]/ZIP Co de Phone Number [facility] [address] [place] [address] * ETHANOL SERUM OR PLASMA (10/05/2024 1:23 PM CDT) ETHANOL <0.010 <0.010 g/dL 10/05/2024 2:00 PM CDT [facility] Blood BLOOD SPECIMEN / Unknown Butterfly / Unknown 10/05/2024 1:23 PM CDT 10/05/2024 1:28 PM CDT Adrian Jose MD CHEMISTRY Final Result [facility] [address] [place] [address] * (ABNORMAL) PRO-BNP (10/05/2024 1:23 PM CDT) Only the most recent of3 resultswithin the time period is included. PRO-BNP 1,529(H) <450 pg/mL 10/05/2024 2:04 PM CDT [facility] Blood BLOOD SPECIMEN / Unknown Butterfly / Unknown 10/05/2024 1:23 PM CDT 10/05/2024 1:28 PM CDT [facility] - 10/05/2024 2:04 PM CDT The following cut-points have been suggested for the use of proBNP for the diagnostic evaluation of heart failure (HF) in patient with acute dyspnea. Patients with eGFR >= 60 Diagnosis (rule in CHF) <50 Years Old 450 pg/mL 50 - 75 Years Old 900 pg/mL >75 Years Old 1800 pg/mL Exclusion (rule out CHF) Age Independent 300 pg/mL A cutoff of 1200 pg/mL for patients with an eGFR <60 yields a diagnostic sensitivity of 89% and specificity of 72% for acute congestive heart failure. Adrian Jose MD SEND OUTS Final Result [facility] [address] [place] [address] * (ABNORMAL) HEPATIC FUNCTION PANEL (10/05/2024 1:23 PM CDT) Only the most recent of2 resultswithin the time period is included. ALBUMIN 3.5(L) 4.0 - 4.9 g/dL 10/05/2024 2:00 PM CDT [facility] PROTEIN,TOTAL 5.5(L) 6.0 - 8.0 g/dL 10/05/2024 2:00 PM [facility] BILIRUBIN,TOTAL 1.2 0.0 - 1.2 mg/dL 10/05/2024 2:00 PM T [facility] BILIRUBIN,DIRECT 0.6(H) 0.0 - 0.2 mg/dL 10/05/2024 2:00 PM [facility] BILIRUBIN,INDIRE CT 0.6 0.2 - 0.8 mg/dL 10/05/2024 2:00 PM CDT [facility] ALK PHOSPHATASE 104 35 - 104 IU/L 10/05/2024 2:00 PM CDT [facility] ALT (SGPT) 23 10 - 35 IU/L 10/05/2024 2:00 PM CDT [facility] AST (SGOT) 35 10 - 35 IU/L 10/05/2024 2:00 PM CDT [facility] Blood BLOOD SPECIMEN / Unknown Butterfly / Unknown 10/05/2024 1:23 PM CDT 10/05/2024 1:28 PM CDT Adrian Jose MD CHEMISTRY Final Result Performing Organization Address City/[facility]/ZIP Co de Phone Number [facility] [address] [place] [address] * TYPE AND SCREEN ONLY (10/05/2024 1:22 PM CDT) ABORH A Rh Positive 10/05/2024 2:21 PM CDT [facility] BLOOD BANK ANTIBODY SCREEN Negative Negative 10/05/2024 2:21 PM CDT [facility] BLOOD BANK SPECIMEN EXPIRATION DATE/TIME 10/08/24 23:59 10/05/2024 2:21 PM CDT [facility] BLOOD BANK Blood BLOOD SPECIMEN / Unknown Butterfly / Unknown 10/05/2024 1:22 PM CDT 10/05/2024 1:28 PM CDT Adrian Jose MD BLOOD BANK Final Result [facility] BLOOD BANK [address] [place] [address] * (ABNORMAL) URINALYSIS MICROSCOPIC (08/16/2024 5:12 PM CDT) RBC 3-5(A) 0-2, None Seen /HPF 08/16/2024 5:28 PM CDT [facility] WBC 0-2 0-2, 3-5, None Seen /HPF 08/16/2024 5:28 PM CDT [facility] BACTERIA Many(A) None Seen, Rare, Few Bacteria/ HPF 08/16/2024 5:28 PM CDT [facility] EPITHELIAL CELLS Few None Seen, Few Epi/HPF 08/16/2024 5:28 PM CDT [facility] Mucus Present 08/16/2024 5:28 PM CDT [facility] HYALINE CASTS 6-10(A) 0-2, 3-5 /LPF 08/16/2024 5:28 PM CDT [facility] CALCIUM OXALATE CRYSTALS Present(A) (none) 08/16/2024 5:28 PM CDT [facility] Urine URINE SPECIMEN / Unknown Non-Blood / Unknown 08/16/2024 5:12 PM CDT 08/16/2024 5:15 PM CDT Ruth LÓPEZ URINE Fin al Result Performing Organization Address City/State/[facility] Co de Phone Number [facility] [address] [place] [address] * CT ABDOMEN PELVIS W (08/16/2024 4:57 PM CDT) Anatomical Region Laterality Modality Abdomen, Pelvis, AORTA, LIVER, SPLEEN Computed Tomography 08/16/2024 5:47 PM CDT Impressions 08/16/2024 5:47 PM CDT 1. No acute intra-abdominal abnormality identified. 2. Numerous incidental findings as above. Please note that all CT scans at this facility use dose modulation, iterative reconstruction, and/or weight-based dosing when appropriate to reduce radiation dose to as low as reasonably achievable. Dictated by Leonel Cooper MD @ 08/16/2024 5:47:41 PM (Electronically Signed) Narrative 08/16/2024 5:47 PM CDT For Patients: As a result of the Cures Act, medical imaging exams and procedure reports are released immediately into your electronic medical record. You may view this report before your referring provider. If you have questions, please contact your health care provider. INDICATION: Abdominal pain. TECHNIQUE: CT abdomen and pelvis acquired with 100 mL Omnipaque 300 IV contrast. COMPARISON: CT abdomen/pelvis dated 06/16/2024. FINDINGS: Lower chest: Stable subcentimeter pulmonary nodules in the lingula. Scattered subsegmental atelectasis. Significant elevation of the right hemidiaphragm, unchanged. No focal consolidation. Liver: Stable peripherally calcified cyst in the right lobe of the liver. Gallbladder and bile ducts: Gallbladder is surgically absent. Prominence of the biliary ducts, likely secondary to postcholecystectomy state. Pancreas: Unremarkable. Spleen: Unremarkable. Adrenal glands: Multiple subcentimeter bilateral adrenal nodules, too small to characterize, unchanged. Kidneys: Kidneys enhance symmetrically, without hydronephrosis. Subcentimeter nonobstructing left renal calculi. Too small to characterize hypodense left renal lesions. 1.5 cm cyst in the right kidney. Retroperitoneum: No lymphadenopathy. Bowel and mesentery: Bowel is not obstructed. No significant ascites, no pneumoperitoneum. Stable perigastric postsurgical changes. Bladder: Suboptimally evaluated secondary to streak artifact. Reproductive organs: Post hysterectomy. Pelvic lymph nodes: No definite lymphadenopathy. Vessels: Extensive vascular calcifications. Abdominal wall: Postsurgical changes in the ventral abdominal wall. Anasarca. Bones: Extensive multilevel degenerative changes of the spine. Bones are severely osteopenic. Right hip arthroplasty. Procedure Note Leonel Cooper MD - 08/16/2024 For Patients: As a result of the Century Cures Act, medical imagingexams and procedure reports are released immediately into your electronicmedical record. You may view this report before your referring provider.If you have questions, please contact your health care provider. INDICATION: Abdominal pain. TECHNIQUE: CT abdomen and pelvis acquired with 100 mL Omnipaque 300 IV contrast. COMPARISON: CT abdomen/pelvis dated 06/16/2024. FINDINGS: Lower chest: Stable subcentimeter pulmonary nodules in the lingula.Scattered subsegmental atelectasis. Significant elevation of the righthemidiaphragm, unchanged. No focal consolidation. Liver: Stable peripherally calcified cyst in the right lobe of theliver. Gallbladder and bile ducts: Gallbladder is surgically absent. Prominenceof the biliary ducts, likely secondary to postcholecystectomy state. Pancreas: Unremarkable. Spleen: Unremarkable. Adrenal glands: Multiple subcentimeter bilateral adrenal nodules, toosmall to characterize, unchanged. Kidneys: Kidneys enhance symmetrically, without hydronephrosis.Subcentimeter nonobstructing left renal calculi. Too small to characterizehypodense left renal lesions. 1.5 cm cyst in the right kidney. Retroperitoneum: No lymphadenopathy. Bowel and mesentery: Bowel is not obstructed. No significant ascites, nopneumoperitoneum. Stable perigastric postsurgical changes. Bladder: Suboptimally evaluated secondary to streak artifact. Reproductive organs: Post hysterectomy. Pelvic lymph nodes: No definite lymphadenopathy. Vessels: Extensive vascular calcifications. Abdominal wall: Postsurgical changes in the ventral abdominal wall.Anasarca. Bones: Extensive multilevel degenerative changes of the spine. Bones areseverely osteopenic. Right hip arthroplasty. IMPRESSION: 1. No acute intra-abdominal abnormality identified. 2. Numerous incidental findings as above. Please note that all CT scans at this facility use dose modulation,iterative reconstruction, and/or weight-based dosing when appropriate toreduce radiation dose to as low as reasonably achievable. Dictated by Leonel Cooper MD @ 08/16/2024 5:47:41 PM (Electronically Signed) Ruth LÓPEZ CT Fin al Result * LIPASE (08/16/2024 4:09 PM CDT) LIPASE 43.3 13.0 - 60.0 IU/L 08/16/2024 4:40 PM CDT [facility] Blood BLOOD SPECIMEN / Unknown Butterfly / Unknown 08/16/2024 4:09 PM CDT 08/16/2024 4:12 PM CDT Ruth LÓPEZ CHEMISTRY Fin al Result [facility] [address] [place] [address] * (ABNORMAL) XR DXA BONE DENSITY 2 SITES AXIAL (03/04/2022 2:22 PM CDT) Anatomical Region Laterality Modality Spine, HIPS, HIPL, HIPR Computed Radiography Impressions 03/05/2022 1:27 PM CDT Osteoporosis with lowest T-score -3.0. RECOMMENDATIONS: The National Osteoporosis Foundation recommends pharmacologic treatment for patients with T-scores of -2.5 or less, patients with prior history of fragility fractures, or patients with 10-year probability of greater than 3% at hips or greater than 20% of suffering major osteoporotic fractures. Recommend continued optimization of calcium and vitamin D intake through dietary means and/or supplementation and regular exercise. Consider pharmacologic therapy for osteoporosis. Follow-up bone density reading in 2 years if therapy initiated to assess therapeutic efficacy. Narrative 03/05/2022 1:27 PM CDT For Patients: Results are automatically released to your [employer] account once available, in compliance with federal regulations. This means that you may see your results before your provider has had a chance to review them. Please allow 2-3 business days for your provider to comment on the results. XR DXA Bone Mineral Density (BMD) EXAM LOCATION: [facility] [address] [address] PATIENT NAME: Kajal Francois DATE OF : 1940 EXAM DATE: 03/04/2022 REQUESTING PROVIDER: Janelle Crawford MD GENDER AT : female HEIGHT: 5' 0.25 (02/11/2022) WEIGHT: 236 lb 12.8 oz (02/11/2022) MENOPAUSAL STATUS: Postmenopausal RACE/ETHNICITY: White RISK FACTORS: Advanced Age, Bariatric Surgery, Height Loss (2 inches or more), History of Fragility Fracture (at a major site), Smoking (prior) CURRENT MEDICATION FOR BONE LOSS: NONE INDICATION: Menopausal COMPARISON DATE(S): None DXA scans are compared to prior studies for a patient only when the two (or more) studies were performed on the same scanner. It is not possible to compare data generated on one scanner to data from another because there are not standards in DXA equipment. This applies even if the two scanners are made by the same configuration specialist. PROCEDURE: Dual-energy x-ray absorptiometry performed with routine technique. Reporting is completed in the form of a T-score. The T-score represents the standard deviation from peak bone mass based on young healthy adult. A Z-score is used for diagnosis in premenopausal women, and for men under the age of 50. FINDINGS: RESULT LUMBAR SPINE L1 - L4 BMD: 1.170 g/cm2 T-Score: - 0.1 RESULTS FEMUR Left femoral neck BMD: 0.618 g/cm2 T-Score: - 3.0 Left hip BMD: 0.642 g/cm2 T-Score: - 2.9 WHO criteria: Normal: T-score at or above -1 SD Osteopenia: T-score between -1.1 and -2.4 SD Osteoporosis: T-score at or below -2.5 SD Janelle Crawford MD DEXA Final Res ult from Last 3 Months or Most Recently Relevant to Health Maintenance Insurance [employer] MED[employer]ARE ADVANTAGE MR [facility] FFS HC [employer] MEDICARE PDGM [facility] Advance Directives Documents on File Type Date Recorded 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 Healthcare Directive 03/25/2023 023 Healthcare Directive 2011 4:11 PM [place] [facility]ARE DIRECTIVE, [facility], 2011 * Full Code (Latest Code Status on File) Date Activated Date Inactivated Comments 10/23/2024 1:22 AM 10/30/2024 4:38 PM Question Answer Comments Code Status Discussion: Reviewed Preferences * Full Code Date Activated Date Inactivated Comments 10/10/2024 5:25 PM 10/22/2024 7:28 PM * Full Code Date Activated Date Inactivated Comments 10/06/2024 12:30 AM 10/07/2024 2:58 PM Question Answer Comments Code Status Discussion: Reviewed Preferences * Full Code Date Activated Date Inactivated Comments 12/14/2023 5:05 PM 12/15/2023 8:47 PM Question Answer Comments Code Status Discussion: Reviewed Preferences * Full Code Date Activated Date Inactivated Comments 01/30/2022 12:21 AM 01/30/2022 7:29 PM Question Answer Comments Code Status Discussion: Reviewed Preferences Care Teams Standards Analyst Relationship Specialty Start Date End Date Janelle Crawford MD [address] [place] [address] PCP - General Internal Medicine 05/13/15 Hailee Mclean RN [address] [id number] Route Clerk - [facility] Registered Nurse 03/31/16 [facility], [place] [address] [address] 12/20/19 Loida Carrillo RN [address] [id number] Route [place] [facility] [place] Nurse 03/21/21 [facility] [place] [address] [place] [id number] 10/07/24 Liz Garcia RN [address] [address] Route Clerk [place] [facility] [place] 10/14/21
[2024-11-15 14:11] LABS: Appearance Urine Clear (Clear); Bilirubin Urine Negative (Negative); Blood Urine Negative (Negative); Color Urine Yellow (Yellow); Glucose Urine Negative (Negative); Ketones Urine Negative (Negative); Leukocyte Esterase Urine Negative (Negative); Nitrite Urine Negative (Negative); Protein Urine Negative (Negative); Specific Gravity Urine 1.025 (1.000-1.030); Urobilinogen Urine 0.2 (0.2-1.0); pH Urine 5.5 (5.0-8.5)
[2024-11-15 14:28] LABS: Mucus Urine Few; RBC Urine 0-2 (0-2); Squamous Epithelial Cell Urine Few (None-Few); WBC Urine 0-2 (0-5)
[2024-11-15] MEDS: 0.9 % SODIUM CHLORIDE 250 ml 250 ML IV (15:20)
[2024-11-15 16:14] VITALS: BP 142/85; PULSE 84; RESP 18; TEMP 37; O2SAT 98
[2024-11-15 16:46] LABS: Lactate* 1.2 mmol/L (0.5-1.9)
[2024-11-15 18:00] VITALS: BP 145/92; PULSE 81; RESP 18; TEMP 36.6; O2SAT 97; O2SAT 98
--- NOTE | 2024-11-15 18:17 | PM.IMHP1 ---
Assessment and Plan Assessment and plan (1) Altered mental status: Problem comment: - appropriate at this time, no interventions or f/u needed per Neurology - notably had an episode of orthostasis and AMS while at [facility] and Code Blue was called, responded to fluids - reassuring head CT - follow clinically, OT evaluation Status: Acute (2) Left upper extremity swelling: Problem comment: - unclear chronicity - anticoagulated so unlikely a DVT, but will evaluate with ultrasound - consider Chest CT (none noted in Epic Chart) pending ultrasound results and clinical course Status: Acute (3) Severe protein-calorie malnutrition: Problem comment: - per chart review, 60+ pound weight loss in the past year - endorses long history of swallowing difficulties, history of esophageal stenosis and recent diagnosis of Candidal esophagitis - CT of ab/pelvis unremarkable at [facility] - TSH noted to be elevated, will check T4 Status: Acute (4) Candidal esophagitis: Problem comment: - diagnosed at [facility] by Endoscopy 09/2024, treated with 14 day course of Fluconazole Status: Acute (5) DVT (deep venous thrombosis): Problem comment: - LLE, diagnosed 10/23/2024, on Eliquis - history of GI bleed 2019, will add PPI Status: Acute (6) Thrombocytopenia: Problem comment: - appears chronic per EPIC chart (clumping with baseline platelets 120s) - no evidence of acute bleeding, will follow Status: Acute (7) Generalized weakness: Problem comment: - unclear baseline, will ask therapies to assess Status: Acute (8) Elevated TSH: Problem comment: - will check T4 Status: Acute Plan - per above (ultrasound, therapies, lab monitoring) - left for son Amador to discuss plan and goals of care Hospitalist- H&P: HPI History of Present Illness Date Seen: 11/15/24 Chief complaint: possible stroke Narrative: Veda Francois is a 84 year old female with a history of severe protein calorie malnutrition, progressive dysphagia/esophageal stenosis, s/p TAVR, recent DVT who was BIBA to the ER today for change in mentation. Recently hospitalized at [facility] (10/23-10/30/24) for progressive dysphagia/esophageal stenosis. Discharge summary below. After stay, was discharged to [facility] in [place] for TCU stay. 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 BG 134 ER Course and Findings: - initially thought to be a stroke code; negative head CT - reviewed with Dr. Peters of Neurology, she did not recommend any acute treatments or interventions - Hgb 13.1, platelets 83 - lactate 2.1, improved to 1.2 after IVFs - TSH 13 Histories reviewed and updated below. Dr. Crawford at [facility] is PCP. UPon arrival to the floor, Veda has no concerns of pain. Notes that she's been tolerating a pureed diet. D/C from [facility] 10/30/24: Veda Francois is a(n) 84 y.o. with a history of aortic stenosis S/P TAVR ('16), TIA, morbid obesity S/P gastric bypass, paroxysmal SVT, hypertension, and esophageal stenosis, presenting with persistent/progressive dysphagia to both solids and liquids. ? Symptoms progressive over several months, now with declining oral intake and unintentional weight loss (estimated 50lb wt loss in 10 months). Recently admitted for similar symptoms, but patient declined inpatient GI evaluation in favor of close outpatient follow-up. Unfortunately, patient has been unable to be evaluated by GI and presented again with ongoing dysphagia symptoms. ? In the ED, hemodynamically stable. Labs notable for mild leukocytosis and hypokalemia. 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 EGD showed margarita esophagitis, started on fluconazole 200mg Qday for 2 weeks (10/29 start date). Video swallow study showed esophageal/ cricopharyngeal dysfunction that may or may not get better with fluconazole treatment. Patient opted to complete treatment course of Fluconazole and follow up with ENT outpatient, rather than inpatient evaluation. ENT referral placed in dc orders. ? Of mention, had an episode of orthostasis with hypotension for which a code blue was called, 10/27 that resolved with lying her down and IV fluids. Some sinus bradycardia; pacemaker interrogation stable. Also of mention, found to have LLE DVT on 10/23. Treated with 1 week of IV heparin ggt while undergoing dysphagia workup. Transitioned to Eliquis on 10/30. Review of Systems Status of ROS: Reports: 10 or more systems reviewed and unremarkable except as noted in History and below Medical Decision Making Medical Decision Making Code Status: Full Code During This Stay, Who Would You Like To Make Decisions For You In The Event You Are Unable To Make Them For Yourself?: jamal English [facility] Medical History (Updated 11/15/24 @ 23:41 by Jolanta Chakraborty MD) Cataract ?H26.9 - Unspecified cataract (ICD-10) TIA (transient ischemic attack) ?G45.9 - Transient cerebral ischemic attack, unspecified (ICD-10) Essential hypertension ?I10 - Essential (primary) hypertension (ICD-10) Osteoarthritis ?M19.90 - Unspecified osteoarthritis, unspecified site (ICD-10) Macular degeneration ?H35.30 - Unspecified macular degeneration (ICD-10) Candidal esophagitis ?B37.81 - Candidal esophagitis (ICD-10) Esophageal stenosis ?K22.2 - Esophageal obstruction (ICD-10) DVT (deep venous thrombosis) ?I82.409 - Acute embolism and thrombosis of unspecified deep veins of unspecified lower extremity (ICD-10) GI bleed ?K92.2 - Gastrointestinal hemorrhage, unspecified (ICD-10) Left bundle branch block ?I44.7 - Left bundle-branch block, unspecified (ICD-10) Aortic stenosis ?I35.0 - Nonrheumatic aortic (valve) stenosis (ICD-10) Thrombocytopenia ?D69.6 - Thrombocytopenia, unspecified (ICD-10) Surgical History (Updated 11/15/24 @ 22:54 by Jolanta Chakraborty MD) History of knee replacement ?Z96.659 - Presence of unspecified artificial knee joint (ICD-10) S/P KEIRY (total abdominal hysterectomy) ?Z90.710 - Acquired absence of both cervix and uterus (ICD-10) Pacemaker ?Z95.0 - Presence of cardiac pacemaker (ICD-10) H/O gastric bypass ?Z98.84 - Bariatric surgery status (ICD-10) S/P TAVR (transcatheter aortic valve replacement) ?Z95.2 - Presence of prosthetic heart valve (ICD-10) Social History (Updated 11/15/24 @ 22:59 by Jolanta Chakraborty MD) Narrative: Was living independently until September 2024, then hospitalized at [facility] and d/c'd to [facility] ([facility]). Moved into [facility] on 11/15, then presented to ER for AMS. Former smoker, quit 1967 (10 pack year history), no ETOH. Son Amador is Medical Decision maker. What is your current living situation?: I presently have a place to live Problems where you live: no known problems Problems where you live details: no known problems In the past 12 months, utilities in danger of being shut off: no In past 12 months, lack of transportation kept you from medical appts, meetings, work, or getting things needed for daily living: no In the past 12 mos, have been you worried that your food would run out before you had money to buy more?: never true In the past 12 mos, the food you bought just didn't last and you didn't have money to buy more?: never true How often do you have a drink containing alcohol: never AUDIT-C Alcohol total score: 0 Non-prescribed substance use: denies use Caffeine: No How often does anyone, including family, friends and others, physically hurt you: never How often does anyone, including family, friends and others, insult or talk down to you: never How often does anyone, including family, friends and others, threaten you with harm: never How often does anyone, including family, friends and others, scream or curse at you: never Meds Home Medications and Allergies Home Medications ?Medication ?Instructions ?Recorded ?Confirmed ?Type ICaps AREDS2 11/15/24 History acetaminophen 500 mg tablet 1,000 mg PO BID 11/15/24 11/15/24 History apixaban 5 mg tablet 5 mg PO BID 11/15/24 11/15/24 History cholecalciferol (vitamin D3) 11/15/24 History cholecalciferol (vitamin D3) 25 1,000 unit PO DAILY 11/15/24 11/15/24 History mcg (1,000 unit) tablet (Vitamin D3) pediatric multivitamin 11/15/24 History peg 400-propylene glycol (PF) 0.4 1 drp ophthalmic (eye) BID-TID PRN 11/15/24 11/15/24 History %-0.3 % eye drops in a dropperette (Systane (PF)) vit C 250 mg-vit E 90 mg-zinc 40 1 tab PO BID 11/15/24 11/15/24 History mg-copper 1 [id number]-[id number] capsule (PreserVision AREDS-2) Allergies Allergy/AdvReac Type Severity Reaction Status Date / Time codeine Allergy Unknown Verified 11/15/24 12:46 morphine Allergy Unknown Verified 11/15/24 12:46 ondansetron Allergy Unknown Verified 11/15/24 12:46 Sulfa (Sulfonamide Allergy Unknown Verified 11/15/24 12:46 Antibiotics) warfarin (From Coumadin) Allergy Unknown Verified 11/15/24 12:46 Exam Narrative: Exam Narrative: GEN: Alert HEENT: Normal external ears, pupils miotic bilaterally, no scleral icterus CV: RRR, + systolic murmur without radiation R: LCTA bilaterally without concerning wheezing Ext: Bilateral 3+ pitting lower extremity edema, symmetric. Left upper extremity has 3+ pitting edema Skin: Scattered bruising on upper extremities, no other concerning skin lesions on exposed skin Neuro: No focal deficits on limited exam Psych: Appropriate Const: Vital Signs, click to edit/add: Vital Signs - 24 hr 11/15/24 12:37 11/15/24 16:14 Temperature 96.7 F L 98.6 F Pulse Rate [Pulse Oximeter] 80 84 Respiratory Rate 18 18 Blood Pressure [Ri ght Upper Arm] 141/89 H 142/85 H Pulse Oximetry 96 98 Oxygen Delivery Me thod Room Air Room Air Hospitalist - H&P: Result Labs Labs: Short CBC 11/15/24 Range/Units 13:17 WBC 10.73 (4.50-11.00) K/uL Hgb 13.1 (12.0-16.0) gm/dL Hct 40.9 (33.0-51.0) % Plt Count 83 L (140-440) K/uL BMP 11/15/24 13:17 Sodium 139 Potassium 3.7 Chloride 109 Carbon Dioxide 27 BUN 19 Creatinine 0.6 Glucose 99 Calcium 7.9 L Liver Function 11/15/24 Range/Units 13:17 Total Bilirubin 0.6 (0.1-1.5) mg/dL AST 36 H (12-35) U/L ALT 29 (4-35) U/L Alkaline Phosphatase 95 (40-150) U/L Albumin 2.4 L (3.3-5.0) g/dL Urine 11/15/24 Range/Units 13:38 Urine Color Yellow (Yellow) Urine Appearance Clear (Clear) Urine pH 5.5 (5.0-8.5) Ur Specific [place] 1.025 (1.000-1.030) Urine Protein Negative (Negative) Urine Glucose (UA) Negative (Negative)
[2024-11-15 20:12] VITALS: BP 123/83; PULSE 95; RESP 18; TEMP 36.3; O2SAT 96
[2024-11-15] MEDS: ACETAMINOPHEN 500 MG TABLET 1000 MG PO ×2 (22:11)
[2024-11-15] MEDS: APIXABAN 5 MG TABLET PO (22:12)
[2024-11-15] MEDS: SODIUM CHLORIDE 0.9 % (FLUSH) 10 ML SYRINGE 5 ML IVF (22:12)
[2024-11-15 23:35] VITALS: BP 129/72; PULSE 76; RESP 18; TEMP 36.6; O2SAT 95
[2024-11-16 00:22] LABS: Free T4 Free Thyroxine* 0.85 ng/dL (0.70-1.85)
[2024-11-16 05:38] VITALS: BP 129/72; PULSE 69; RESP 18; TEMP 36.4; O2SAT 95
[2024-11-16 06:03] LABS: Basophils Absolute Auto 0.04 K/uL (0.00-0.30); Basophils Percent Auto 0.4 % (0.0-3.0); Eosinophils Absolute Auto 0.09 K/uL (0.00-0.50); Eosinophils Percent Auto 0.9 % (0.0-7.0); Hemoglobin* 12.4 gm/dL (12.0-16.0); Immature Granulocytes Abs Auto 0.03 K/uL (0.00-0.30); Immature Granulocytes Pct Auto 0.3 %; Lymphocytes Percent Auto 17.7 % (20-44); Mean Corpuscular HGB Conc 33 gm/dL (32-36); Mean Corpuscular Hemoglobin 32 pg (26-34); Mean Corpuscular Volume 98 fL (80-100); Monocytes Percent Auto 5.9 % (0.0-11.0); Neutrophils Percent Auto 74.8 % (42.0-72.0); RDW Coefficient of Variation % 15.8 % (11.5-15.5); Red Blood Count 3.86 m/uL (4.00-5.20); White Blood Count* 10.28 K/uL (4.50-11.00)
[2024-11-16 06:07] LABS: Platelet Count* 48 K/uL (140-440)
[2024-11-16 06:08] LABS: Slide Review Reflex No
--- NOTE | 2024-11-16 06:09 | PC.NURSE ---
Pt susan and cooperative. T&R q2h. has Purwick in place. has not voided since it was placed at 2100 last night. She is taking only sips of thickened liquids.
[2024-11-16 06:20] LABS: Albumin* 2.1 g/dL (3.3-5.0); Chloride* 110 mmol/L (96-114)
[2024-11-16 06:21] LABS: Potassium* 4.1 mmol/L (3.6-5.1); Sodium* 139 mmol/L (135-149)
[2024-11-16 06:23] LABS: Anion Gap 1 mEq/L (7-15); Bilirubin Total* 0.6 mg/dL (0.1-1.5); Blood Urea Nitrogen* 19 mg/dL (7-30); Carbon Dioxide* 28 mmol/L (20-32); Creatinine* 0.5 mg/dL (0.5-1.5); Estimated Glomerular Filt Rate 91 ml/min
[2024-11-16 06:24] LABS: Alanine Aminotransferase* 23 U/L (4-35); Alkaline Phosphatase* 92 U/L (40-150); Aspartate Amino Transferase* 31 U/L (12-35); Calcium* 7.7 mg/dL (8.4-10.6); Glucose* 79 mg/dL (60-115); Total Protein* 4.6 g/dL (6.0-8.3)
[2024-11-16 06:41] LABS: Ionized Calcium* 1.17 mmol/L (1.11-1.30)
[2024-11-16] MEDS: OMEPRAZOLE 20 MG CAPSULE DR PO (06:50)
[2024-11-16 07:40] VITALS: BP 136/101; PULSE 92; RESP 16; TEMP 36.4; O2SAT 98
--- NOTE | 2024-11-16 09:07 | CRLHL7_ITS ---
For Patients: As a result of the Century Cures Act, medical imaging exams and procedure reports are released immediately into your electronic medical record. You may view this report before your referring provider. If you have questions, please contact your health care provider. INDICATION: Left upper extremity swelling TECHNIQUE: Ultrasound venous duplex upper left extremity. Compression venous exam was performed using rivera-scale, color Doppler, and spectral Doppler analysis. COMPARISON: None. FINDINGS: Left internal jugular vein shows normal compression and waveforms. Left brachiocephalic and subclavian veins show normal waveforms. Left axillary, brachial, basilic and cephalic veins show normal compression and waveforms. Right internal jugular vein shows normal compression and waveforms. IMPRESSION: Normal left upper extremity venous ultrasound, no sign of deep venous thrombosis. Dictated by Johny Ryan MD @ 11/16/2024 10:00:05 AM (Electronically Signed)
[2024-11-16] MEDS: SODIUM CHLORIDE 0.9 % (FLUSH) 10 ML SYRINGE 5 ML IVF (09:08)
[2024-11-16 11:00] VITALS: BP 132/87; PULSE 79; RESP 18; TEMP 36.7; O2SAT 98
--- NOTE | 2024-11-16 12:02 | PC.SOCIAL ---
Pt. 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 Once pt. is medically ready she will return to [facility].
--- NOTE | 2024-11-16 12:05 | REH.OT ---
OT orders reviewed. Pt from LTC with full nursing care assistance per SW. Defer to OT at LTC to address OT needs if appropriate.
--- NOTE | 2024-11-16 14:29 | PC.SOCIAL ---
Social work: Called pt's son and left message regarding wheelchair transportation scheduled for discharge back to [facility] today. Left contact information for son to call back of needed.
--- NOTE | 2024-11-16 14:32 | P.DS_ITS ---
DS: Providers Provider Date Seen: 11/16/24 Date of admission: 11/15/24 17:18 Primary care physician: Janelle Crawford MD, [place] Admitting Clinician: Jolanta Chakraborty MD Consults: 11/15/24 18:28 Consult to Physical Therapy [CONS] Routine Comment: Reason(s) for PT Consult:: Evaluate and Treat Any Restrictions?:: No Restrictions Consult to Dial Painter [CONS] Routine Comment: Reason for Consult:: Discharge Planning Needs 11/15/24 18:31 Consult to Occupational Therapy [CONS] Routine Comment: Reason(s) for OT Consult:: Evaluate and Treat Any Restrictions?:: No Restrictions Attending Physician on discharge: MACARIO [facility]enzuela[facility] Date of Discharge: 11/16/24 DS: Diagnosis Discharge Diagnosis (1) Altered mental status: Status: Acute Problem details: - appropriate at this time, no interventions or f/u needed per Neurology - notably had an episode of orthostasis and AMS while at [facility] and Code Blue was called, responded to fluids - reassuring head CT - follow clinically, OT evaluation Patient has remained clear, oriented. No outpatient neuro follow-up indicated. (2) Left upper extremity swelling: Status: Acute Problem details: - unclear chronicity - anticoagulated so unlikely a DVT, but will evaluate with ultrasound - consider Chest CT (none noted in Epic Chart) pending ultrasound results and clinical course Swelling noted, soft, translucent in appearance. Nontender. No interference with active range of motion. Upper extremity ultrasound negative for DVT. Was going to attempt CT chest to rule out PE however after multiple attempts able to obtain another IV after the 1st failed. No hypoxia. No tachycardia. No chest pain or shortness of breath reported. Patient is currently anticoagulated. Outpatient follow-up. (3) Severe protein-calorie malnutrition: Status: Acute Problem details: - per chart review, 60+ pound weight loss in the past year - endorses long history of swallowing difficulties, history of esophageal stenosis and recent diagnosis of Candidal esophagitis - CT of ab/pelvis unremarkable at [facility] - TSH noted to be elevated, T4 0.85 PCP has been following. Son voices concern for ongoing lack of oral intake and weight loss. PCP however notes patient is pleased with her weight loss jeffery griffith to her notes. Son tells me she needs to have a feeding tube placed while she is here in the hospital. Attempted to discuss with him that this could be addressed with PCP in the outpatient setting and if deemed necessary, could be completed in outpatient surgery. Son became belligerent, swearing, angry that Av did not do it while she was there (I do not see notes in EMR addressing this) and now we are ignoring it. Threatens that he will just have to bring her back because she is having these episodes because she is dehydrated. Rather than engaging with his behavior, repeated she would be discharged to [facility] with recommendation for outpatient evaluation for feeding tube. (4) Candidal esophagitis: Status: Acute Problem details: - diagnosed at [facility] by Endoscopy 09/2024, treated with 14 day course of Fluconazole (5) DVT (deep venous thrombosis): Status: Acute Problem details: - LLE, diagnosed 10/23/2024, on Eliquis - history of GI bleed 2019, will add PPI (6) Thrombocytopenia: Status: Acute Problem details: - appears chronic per EPIC chart (clumping with baseline platelets 120s) - no evidence of acute bleeding Outpatient follow-up PCP (7) Generalized weakness: Status: Acute Problem details: - unclear baseline, will ask therapies to assess Resume therapies upon return to [facility]. (8) Elevated TSH: Status: Acute Problem details: - TSH 13.7, T4 0.85 Outpatient follow up with PCP DS: Summary Hospital Course Hospital Course: Course of care and details as noted above. Episode of decreased level of consciousness 1 hour after arriving to [facility] yesterday. Neuro workup unremarkable. Tele neurology recommending no further outpatient neurology follow-up. Will return to [facility] to resume therapies. PCP is Dr. Janelle Crawford in [place]. Son is adamant that patient needs a feeding tube. Recommend outpatient follow-up for further evaluation and recommendations. Remainder of chronic medical comorbidities were monitored and managed with home medications. Status at Discharge Overall status at discharge: patient is back to baseline Time Spent with Patient Time attestation: Total time spent providing and/or coordinating discharge services: Time spent: Greater than 30 minutes Exam Narrative: Exam Narrative: PHYSICAL EXAM General: Quiet, resting peacefully Cardiovascular: RRR Pulmonary: No dyspnea Neurological: Alert, answering questions appropriately Skin: Warm, dry. Const: Vital Signs, click to edit/add: Vital Signs - 24 hr 11/15/24 16:14 11/15/24 18:00 11/15/24 18:00 Temperature 98.6 F 97.9 F Pulse Rate [Pulse Oximeter] 84 81 Respiratory Rate 18 18 18 Blood Pressure [Le ft Arm] 145/92 H Blood Pressure [Ri ght Arm] Blood Pressure [Ri ght Upper Arm] 142/85 H Pulse Oximetry 98 97 98 Oxygen Delivery Me thod Room Air Room Air Room Air 11/15/24 20:12 11/15/24 23:35 11/16/24 05:38 Temperature 97.3 F L 97.9 F 97.6 F Pulse Rate [Pulse Oximeter] 95 76 69 Respiratory Rate 18 18 18 Blood Pressure [Le ft Arm] Blood Pressure [Ri ght Arm] 123/83 129/72 129/72 Blood Pressure [Ri ght Upper Arm] Pulse Oximetry 96 95 95 Oxygen Delivery Me thod Room Air Room Air Room Air 11/16/24 07:40 11/16/24 07:40 Temperature 97.6 F Pulse Rate [Pulse Oximeter] 92 92 Respiratory Rate 16 16 Blood Pressure [Le ft Arm] Blood Pressure [Ri ght Arm] 136/101 H Blood Pressure [Ri ght Upper Arm] Pulse Oximetry 98 Oxygen Delivery Me thod Room Air DS: Data Data Completed and Pending Labs on day of discharge: Labs from last 24 hours 11/16/24 11/16/24 11/15/24 06:11 05:54 23:39 WBC 10.28 RBC 3.86 L Hgb 12.4 Hct 38.0 MCV 98 MCH 32 MCHC 33 RDW Coeff of Raven 15.8 H Plt Count 48 L* Neut % (Auto) 74.8 H Lymph % (Auto) 17.7 L [place] % (Auto) 5.9 Eos % (Auto) 0.9 Baso % (Auto) 0.4 Neut # (Auto) 7.70 H Lymph # (Auto) 1.80 [place] # (Auto) 0.60 Eos # (Auto) 0.09 Baso # (Auto) 0.04 Abs Immat Gran (auto) 0.03 Imm/Tot Granulo (auto) 0.3 Sodium 139 Potassium 4.1 Chloride 110 Carbon Dioxide 28 Anion Gap 1 L BUN 19 Creatinine 0.5 Estimated GFR 91 Glucose 79 Lactate Calcium 7.7 L Ionized Calcium Sanchez 1.17 Total Bilirubin 0.6 AST 31 ALT 23 Alkaline Phosphatase 92 Total Protein 4.6 L Albumin 2.1 L TSH Free T4 Lab Acknowledgement Test Added 11/15/24 11/15/24 16:01 13:17 WBC RBC Hgb Hct MCV MCH MCHC RDW Coeff of Raven Plt Count Neut % (Auto) Lymph % (Auto) [place] % (Auto) Eos % (Auto) Baso % (Auto) Neut # (Auto) Lymph # (Auto) [place] # (Auto) Eos # (Auto) Baso # (Auto) Abs Immat Gran (auto) Imm/Tot Granulo (auto) Sodium Potassium Chloride Carbon Dioxide Anion Gap BUN Creatinine Estimated GFR Glucose Lactate 1.2 Calcium Ionized Calcium Sanchez Total Bilirubin AST ALT Alkaline Phosphatase Total Protein Albumin TSH 13.700 H Free T4 0.85 Lab Acknowledgement Imaging Venous duplex: Attestation: I have reviewed the pertinent imaging results. Radiologist's impression: Left internal jugular vein shows normal compression and waveforms. Left brachiocephalic and subclavian veins show normal waveforms. Left axillary, brachial, basilic and cephalic veins show normal compression and waveforms. Right internal jugular vein shows normal compression and waveforms. IMPRESSION: Normal left upper extremity venous ultrasound, no sign of deep venous thrombosis. Chest x-ray: Attestation: I have reviewed the pertinent imaging results. My impression: No concern for aspiration pneumonia clinically Radiologist's impression: Cardiovasculature and mediastinum: Cardiomegaly. Unremarkable mediastinum. Valve replacement. Left chest wall pacer with leads projecting over the expected locations of the right atrial appendage and right ventricle. Aortic arch calcifications. Lungs and pleural spaces: Right hemidiaphragm elevation. Small left pleural effusion. Subtle left basal opacities. No pneumothorax. Bones and soft tissues: Surgical clips and surgical material project over the left lower chest. Prior left rotator cuff repair. IMPRESSION: Small left pleural effusion and subtle left basal patchy opacities may reflect atelectasis, however aspiration is difficult to exclude. Cardiomegaly. CT scan - head: Attestation: I have reviewed the pertinent imaging results. Radiologist's impression: No intracranial hemorrhage. Age-related atrophy. No acute or subacute cortically based infarct. Scattered white matter hypodensities may be related to chronic microvascular ischemia. No mass or mass effect. Normal ventricles. No skull fractures. No worrisome focal bone lesion. IMPRESSION: No acute intracranial findings. Atrophy and white matter hypodensity typical of small-vessel disease in a pattern that is similar to the prior exam. Please note that all CT scans at this facility use dose modulation, iterative reconstruction, and/or weight-based dosing when appropriate to reduce radiation dose to as low as reasonably achievable. Dictated by Laureen Alford MD @ 11/15/2024 12:49:20 PM ----- ADDENDUM ----- Report confirmed as received by Dr. Beckman at 12:52 p.m. on 11/15/2024. Dictated by Laureen Alford MD @ Nov 15 2024 12:55PM (Electronically Signed) For Patients: As a result of the Cures Act, medical imaging exams and procedure reports are released immediately into your electronic medical record. You may view this report before your referring provider. If you have questions, please contact your health care provider. INDICATION: Unresponsive with seizure-like activity. COMPARISON: 10/05/2024 and 10/24/2024 TECHNIQUE: CT of the brain / head without intravenous contrast. Multiplanar axial, coronal, and sagittal reformats were reconstructed. FINDINGS: No intracranial hemorrhage. Age-related atrophy. No acute or subacute cortically based infarct. Scattered white matter hypodensities may be related to chronic microvascular ischemia. No mass or mass effect. Normal ventricles. No skull fractures. No worrisome focal bone lesion. IMPRESSION: No acute intracranial findings. Atrophy and white matter hypodensity typical of small-vessel disease in a pattern that is similar to the prior exam. Discharge Plan Discharge Disposition: [facility] Discharge Location: [facility] Date of Admission: 11/15/24 17:18 Attending Provider on Discharge: Margo Alcaraz Primary Care Provider: Provider,Not a Local Condition: Improved Anticipated Discharge Date/Time: 11/16/24 13:39 Discharge Medications: Continued apixaban 5 mg tablet 5 mg PO BID cholecalciferol (vitamin D3) [Vitamin D3] 25 mcg (1,000 unit) tablet 1,000 unit PO DAILY acetaminophen 500 mg tablet 1,000 mg PO BID PreserVision AREDS-2 250-90-40-1 mg capsule 1 tab PO BID Systane (PF) 0.4-0.3 % dropperette 1 drp ophthalmic (eye) BID PRN Flintstones Multivitamin Tablet,Chewable 2 tab PO DAILY Discharge Orders: Discharge Order (Routine); Ordered 11/16/24 Ordered By: Margo Alcaraz Additional Instructions: RESUME INITIAL ORDERS FROM ADMISSION. SON IS REQUESTING EVALUATION FOR FEEDING TUBE. Activity Level: Activity as Tolerated Discharge Diet: Regular Follow Up Appointments: Provider,Not a Local [Primary Care Provider, Family Practice] Forms: [employer] Medical Info Instructions Admit to: SNF Discharge Potential: Fair Length of Stay: <30 days Can use facility standing orders?: Yes Code Status: Full Code Rehab Potential: Fair Therapy: Physical Therapy and Occupational Therapy Therapy Orders: Evaluate and Treat Therapy Orders Additional Information: RESUME ORIGINAL THERAPY ORDERS Oxygen: No Urinary Catheter: No Orders are good >30 days: No Signature: MACARIO VALENZUELA, PA-[facility]
--- NOTE | 2024-11-16 15:54 | REH.PT ---
PT orders received. Eval attempted in am and pm but not completed due to am prolonged feeding time and pm CT scan. Will attempt tomorrow if appropriate.
--- NOTE | 2024-11-16 17:13 | PC.NURSE ---
End of Shift: patient pleasant and cooperative, VSS, afebrile. SpO2 maintained above 90% on RA. D/C to [facility] at 1630
--- NOTE | 2024-11-17 10:48 | REH.PT ---
PT order not completed. Patient discharged from facility back to SNF late yesterday afternoon.
== END 2024-11-16 16:20 ==
LOC: ED 16:44 → MEDSURG 17:18
PROVIDERS: Admitting Provider Family Medicine; Emergency Provider Student in an Organized Health Care Education/Training Program; Visit Provider Family Medicine
DX: R41.82 Altered mental status, unspecified (principal); R53.1 Weakness; M79.89 Other specified soft tissue disorders; R79.89 Other specified abnormal findings of blood chemistry; E43 Unspecified severe protein-calorie malnutrition; I82.402 Acute embolism and thrombosis of unspecified deep veins of left lower extremity; Z79.01 Long term (current) use of anticoagulants; B37.81 Candidal esophagitis; D69.6 Thrombocytopenia, unspecified; I10 Essential (primary) hypertension; R40.4 Transient alteration of awareness; K62.5 Hemorrhage of anus and rectum
CPT/HCPCS: 36415; 51798; 70450; 71045; 80053; 81001; 82270; 82330; 82803; 83605; 83735; 84439; 84443; 84484; 85025; 86850; 86900; 86901; 93005; 93971; 96360; 96374; 96375; 99215; 99282; 99284; 99285; A9270; G0378; J2470; J7030; J7050

== ENCOUNTER 2024-11-16 16:38 | Outpatient (CLI) | payer OTHER, SELFPAY ==
--- OUTSIDE RECORDS SUMMARY | 2024-10-25 19:00 | XMS_ITS | Continuity of Care Document ---
Author Organization [facility] Address [address] [address] [place] [address] Phone Care Team Providers Care Farmer Cash Grain Name Role Phone Paola MCKEON, Tenisha Unavailable [...] nystatin 50 million unit oral powder take ([id number]) by oral route 4 times every day [...] Providers Copied on Encounter Subsqt Inpt Moderate [facility], [address] [address], [place], [id number], [place] tel:[phone] [facility] No Information 5 Paola Steven. [address] [place] [address], [address], [id number], [place]. tel:[phone] Referring Provider: Tenisha Guevara SURVEYOR INSTRUMENT ASSISTANT, [address] [place] [address], [place], [address] . tel:[phone] [facility], [address] [address], [place], [id number], [place] tel:[phone] [facility] No Information 5 Min MD Vazquez. [address] [place] [address], [facility] [address], [place], [id number], [place]. tel:[phone] Referring Provider: George PARISH X, [address] [place] [address] [address], [place], [address] . tel:[phone] Init Inpt E&M Moderate [facility], [address] [address], [place], [id number], [place] tel:[phone] [facility] No Information 5 Constantin Harrington. [address] [facility], [address], [id number], [place]. [phone] Referring Provider: Janelle Crawford MD, [address] [facility] [place], [address]. tel:[phone] [facility], [address] [address], [place], [address], [place] tel:[phone] [facility] 0 Ibrahima Woods. [address] [place] [address], [id number], [place]. tel:[phone] Subsqt Hosp-da E&m Stable 15 M [facility], [address] [address], [place], [address], [place] tel:[phone] [facility] No Information 0 Ibrahima Woods. [facility] [address], [place], [address], [place]. tel:[phone] Referring Provider: Zoey Maldonado DO, [address], [place], [address]. tel:[phone] Init Hosp-da E&m Mod Severity [facility], [address] [address], [place], [address], [place] tel:[phone] [facility] No Information 0 Ibrahima Woods. [address] [facility], [facility] [address], [place], [id number], [place]. tel:[phone] Referring Provider: Zoey Maldonado DO, [address], [place], [address]. tel:[phone] [facility], [address] [address], [place], [address], [place] tel:[phone] [facility] No Information 201 7 Randi Romero. [address] [place] [address], [address], [id number], [place]. tel:[phone] Referring Provider: Janelle Crawford MD, [address] [place] [address], [address]. tel:[phone] [facility], [address] [address], [place], [address], [place] tel:[phone] [facility] Esophageal dysphagia 7 No Information Offic/outpt E&m Estab Minor [facility], [address] [address], [facility] [place], [address], [place] tel:[phone] [facility] GI Symptoms or Concerns (chief complaint) Esophageal strictureDiet nery counseling and surveillanceE ssential (primary) hypertension 7 No Information Referring Provider: Janelle Crawford MD, [address] [place] [address], [address]. tel:[phone] [facility], [address] [address], [facility] [place], [address], [place] tel:[phone] [facility] No Information Jul- 7 Fran Marshall. [address] [place] [address], [facility] 500, [place], [place], [address], [place]. tel:[phone] Referring Provider: Renetta Peters MD, [facility] 500, [place], [address] . tel:[phone] Offic Cons New/estab Mod [facility], [address] [address], [facility] [place], [address], [place] tel:[phone] [facility] GI Symptoms or Concerns (chief complaint) Esophageal dysphagiaDiet nery counseling and surveillanceE ssential (primary) hypertension 7 Fidencio Oconnor. [facility], [facility] 500, [place], [place], [address], [place]. tel:[phone] Referring Provider: Janelle Crawford MD, [address] [place] [address], [address]. tel:[phone] Family History Family Member Type Diagnosis Age [...] Covered green party ID Authorjoaquina erick(s) Jacki [facility] 16 [id number] Social History Type Description Quantity Date Captured [...] four years. She apparently did see an holistic specialist and did have a laryngoscope completed, however, [...] foods and medications. She reports seeing an holistic specialist at one point who said she did [...] form if possible. Related to Esophageal dysphagia EGD With Dilation Related to Dys phagia, pharyngoesophageal phase Lifestyle education regarding di et Related to Dietary counseling and surveillance Assessments Type Assessment Date No Information Patient Care Teams Name Effective Dates (start - stop) Status Members No Information
--- OUTSIDE RECORDS SUMMARY | 2024-10-25 19:00 | XMS_ITS | Continuity of Care Document ---
Author Organization [facility] Address [address] [address] [place] [address] Phone Care Team Providers Care Apprentice Painter Brush Name Role Phone Paola MCKEON, Tenisha Unavailable [...] nystatin 50 million unit oral powder take ([id number]) by oral route 4 times every day [...] Providers Copied on Encounter Subsqt Inpt Moderate [facility] [place], [address] [address], [place], [id number], [place] tel:[phone] [facility] No Information 5 Paola Steven. [address] [place] [address], [address], [id number], [place]. tel:[phone] Referring Provider: Tenisha Guevara LEAFLET OR NEWSPAPER DELIVERER, [address] [place] [address] [address], [place], [address] . tel:[phone] [facility] [place], [address] [address], [place], [id number], [place] tel:[phone] [facility] No Information 5 Min MD Vazquez. [address] [place] [address], [facility] [address], [place], [id number], [place]. tel:[phone] Referring Provider: George PARISH X, [address] [place] [address] [address], [facility] [place], [address] . tel:[phone] Init Inpt E&M Moderate [facility] [place], [address] [address], [place], [id number], [place] tel:[phone] [facility] No Information 5 Constantin Harrington. [address] [facility], [address], [id number], [place]. [phone] Referring Provider: Janelle Crawford MD, [address] [place], [address]. tel:[phone] [facility], [address] [address], [place], [id number], [place] tel:[phone] [facility] 0 Ibrahima Woods. [address] [place] [address], [id number], [place]. tel:[phone] Subsqt Hosp-da E&m Stable 15 M [facility], [address] [address], [place], [id number], [place] tel:[phone] [facility] No Information 0 Ibrahima Woods. [facility] [address], [place], [id number], [place]. tel:[phone] Referring Provider: Zoey Maldonado DO, [address], [place], [address]. tel:[phone] Init Hosp-da E&m Mod Severity [facility], [address] [address], [place], [id number], [place] tel:[phone] [facility] No Information 0 Ibrahima Woods. [address] [facility], [facility] [address], [place], [id number], [place]. tel:[phone] Referring Provider: Zoey Maldonado DO, [address], [place], [address]. tel:[phone] [facility], [address] [address], [place], [id number], [place] tel:[phone] [facility] No Information 201 7 Randi Romero. [address] [place] [address], [address], [id number], [place]. tel:[phone] Referring Provider: Janelle Crawford MD, [address] [place] [address], [address]. tel:[phone] [facility], [address] [address], [place], [id number], [place] tel:[phone] [facility] Esophageal dysphagia 7 No Information Offic/outpt E&m Estab Minor [facility], [address] [address], [facility] [place], [id number], [place] tel:[phone] [facility] GI Symptoms or Concerns (chief complaint) Esophageal strictureDiet nery counseling and surveillanceE ssential (primary) hypertension 7 No Information Referring Provider: Janelle Crawford MD, [address] [place] [address], [address]. tel:[phone] [facility], [address] [address], [facility] [place], [id number], [place] tel:[phone] [facility] No Information Jul- 7 Fran [place]. [address] [place] [address], [facility] 500, [place], [place], [id number], [place]. tel:[phone] Referring Provider: Renetta Peters MD, [facility] [address], [place], [address] . tel:[phone] Offic Cons New/estab Mod [facility], [address] [address], [facility] [place], [id number], [place] tel:[phone] [facility] GI Symptoms or Concerns (chief complaint) Esophageal dysphagiaDiet nery counseling and surveillanceE ssential (primary) hypertension 7 Fidencio Oconnor. [facility], [facility] 500, [place], [place], [id number], [place]. tel:[phone] Referring Provider: Janelle Crawford MD, [address] [place] [address], [address]. tel:[phone] Family History Family Member Type Diagnosis Age [...] Covered green party ID Authorjoaquina erick(s) Jacki [facility] 16 [id number] Social History Type Description Quantity Date Captured [...] four years. She apparently did see an apprentice painter brush and did have a laryngoscope completed, however, [...] foods and medications. She reports seeing an apprentice painter brush at one point who said she did [...]
--- OUTSIDE RECORDS SUMMARY | 2024-11-18 00:09 | XMS_ITS | Clinical Summary ---
Author Organization [facility] Address [address] [place] [address] Care Team Providers Care Equipment Operator Wage Hand Name Role Phone Janelle Crawford MD Primary Care Provider + [phone] Hailee Mclean RN Unavailable [facility], [place] Unavailable Loida Carrillo RN Unavailable [facility], [place] Unavailable Allergies Active Allergy Reactions Criticality Noted [...] once daily. 10/31/19 25 Active vit C-vit J-fomohu-njeg ox-lutein (PRESERVISION) 226-200-5-0.8 lh-dmgf-oq-mg cap Take 1 capsule by mouth once [...] she underwent prior gastric bypass, Geovanna-en-Y at [facility] in the 1979's. 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 Homer. ) 11/08/19 25 Lab Requisition L [facility] [phone] Unknown, Doctor 11/07/19 25 Home Care Visit Count Includes [facility] [address] [place] [phone] Hanh Horn RN CARE COORDINATION 10/26/19 25 10:38 AM CDT - 10/26/19 25 11:[address] [facility] [address] [place], [place] [phone] George Stuart MD ESOPHAGOGASTRODUODENOSCOPY WITH BIOPSY 10/26/19 25 10:24 AM CDT An[address]hesia Event [facility] [address] [place] [address] Khadra Merchant MD Zimmerman, Anna A, CRNA 10/25/19 25 Home Care Visit Count Includes [facility] [address] [place] [address] Hanh Horn RN SN - OASIS TRANSFER 10/24/19 25 1:00 AM CDT - 10/31/19 25 1:30 PM CDT Hospital Encounter [facility] [address] [place] [address] [facility], [facility] Hospitalists Of [facility], MD Sg Sultana, MD Deion Aguilar, Ioana Leary MD Deep vein thrombosis (DVT) of proximal lower extremity, unspecified chronicity, unspecified laterality (HC) (Primary Dx); Weight loss, unintentional; Fungal esophagitis; Esophageal stenosis Discharge Disposition: Nursing Home Facility 10/24/19 Home Care Visit Count Includes [facility] [address] [place] [phone] Hanh Horn RN CARE TRANSITION NOTE 10/23/19 7:28 PM CDT - 10/23/19 11:52 PM CDT Emergency [facility] [address] [place] [address] Susie Bang PA Katzung, Sara Cazares MD Dysphagia, unspecified type (Primary Dx); Hypokalemia Discharge Disposition: Short Term/PPS Hosp 10/23/19 Travel 10/21/19 Telephone [facility] [address] [place] [address] Janelle Crawford MD Error-please disregard 10/21/19 Telephone [facility] [address] [place] [address] Joe Elliott, APPLIANCE MECHANIC Home Care (Worsening Dysphagia ) 10/20/19 12:15 PM CDT Home Care Visit Count Includes [facility] [address] [place] [phone] Joe Elliott, APPLIANCE MECHANIC APPLIANCE MECHANIC - INITIAL ASSESSMENT 10/18/19 2:30 PM CDT Home Care Visit Count Includes [facility] [address] [place] [phone] Patricia Tavarez, PT PT - XUZ-[id number]-[id number] ASSESSMENT 10/18/19 12:30 PM CDT Home Care Visit [address] [phone] Hanh Horn RN SN - HOME VISIT 10/14/19 Home Care Visit [address] [phone] Paula Cole, PT CARE COORDINATION 05/16/20 25 Nurse Triage Count Includes [facility] [address] [place] [address] Janelle Crawford MD Appointment 10/13/19 25 Home Care Visit Count Includes [facility] [address] [place] [address] Paula Cole PT CARE COORDINATION 10/12/19 25 1:45 PM CDT Office Visit [address] [phone] Janelle Crawford MD Hospital F/U 10/12/19 25 Travel 10/12/19 25 Home Care Visit Count Includes [facility] [address] [place] [phone] Hanh Horn, STEFANIE CARE COORDINATION 10/11/19 25 11:30 AM CDT Home Care Visit Count Includes [facility] [address] [place] [address] Hanh Horn, RN SN - OASIS START OF CARE 10/11/19 25 Telephone Count Includes [facility] [address] [place] [address] Hanh Horn, boat ride operator (Leg edema) 10/11/19 25 Plan of Care Documentation Count Includes [facility] [address] [place] [phone] 10/10/19 25 Transcribe Orders Count Includes [facility] [address] [place] [phone] Jose Luis Lozano DO 10/10/19 25 Patient Outreach [address] [phone] Ella Morrison, RN Primary RN Care Management (Hospital DC: 10/07/24/LACE: 64/Dysphagia ); Hospital F/U 10/06/19 25 11:31 PM CDT - 10/08/19 12:58 PM CDT Hospital Encounter [facility] [address] [place] [address] [facility], [facility] Hospitalists Of [facility], MD Hallie Small Krishna Kumar K[place], MBBS Residents, A2 S/P TAVR (transcatheter aortic valve replacement) (Primary Dx); Dysphagia, unspecified type; Weight loss, unintentional Discharge Disposition: Home Health 10/06/19 12:06 PM CDT - 10/06/19 10:30 PM CDT Emergency [facility] [address] [place] [address] Adrian Jose MD Hospitalist, [facility] Md Jean-Baptiste, Dmitriy Austin, Tricia Parra DO Dysphagia, unspecified type (Primary Dx) Discharge Disposition: Short Term/PPS Hosp 10/06/19 Travel 09/16/19 Telephone [facility] [address] [place] [address] Janelle Crawford MD Results 09/14/19 9:35 AM CDT Office Visit [facility] [address] [place] [address] Janelle Crawford MD Leg Swelling 09/14/19 25 Travel 09/02/19 Nurse Triage [facility] [address] [place] [address] Janelle Crawford MD Leg Swelling (Bilateral severe ) 09/02/[address] [place] [address] Janelle Crawford MD Error-please disregard 08/30/19 Telephone [facility] [address] [place] [address] Tasha Christian DO Chart Review 08/25/19 25 2:10 PM CDT Office Visit [address] [place] [address] Janelle Crawford MD Hospital F/U (ED DOS: [...] on file Legal Sex Female 5:23 AM TEST CASE 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 Gender Identity Not on file Sexual Orientation Not on file 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 Industry 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 Start Date 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 Not on file Not on file Not [...] Description 12/04/2024 11:00 AM CDT Office Visit [facility] [address] [place] [phone] Norman Mckeon MD [address] [place] [address] 12/14/2024 12:30 PM CDT Office Visit [facility] [address] [place] [address] Vivek Cox MD [address] [place] [address] 12/14/2024 3:00 PM CDT Orders Only [facility] [place] [facility] [address] [place] [phone] 02/27/2025 Cardiac Device Check [facility] [phone] Health Maintenance Due Date Last Done Comments [...] this topic Medical Devices Implanted Type Area Paper Reeler Device Identifier Shelf Expiration Date Model / Serial / Lot Dual Chamber Pacemaker Implanted:2015 by Virgil Hernandez MD (Quantity not on file) Standard Pacemaker Medtronic ADAPTA [id number] / [id number] / Valve Aortic 26mm Nicolle 3 Transcatheter Sys Commander - [id number] Implanted:Qty: 1 on 02/05/2016 by Manish Flores MD at [facility] Aortic Valve Cherry [employer] Paul 10/16/2016 [id number]# / [id number] / Procedures Procedure Name Priority Date/Time Associated [...] - 11.0 thou/cu mm 11/08/2024 9:03 AM [facility] RED BLOOD COUNT 4.30 4.00 - 5.20 mil/cu mm 11/08/2024 9:03 AM [facility] HEMOGLOBIN 13.5 12.0 - 16.0 g/dL 11/08/2024 9:03 AM [facility] HEMATOCRIT 40.9 33.0 - 51.0 % 11/08/2024 9:03 AM [facility] MCV 95 80 - 100 fL 11/08/2024 9:03 AM [facility] MCH 31.4 26.0 - 34.0 pg 11/08/2024 9:03 AM [facility] MCHC 33.0 32.0 - 36.0 g/dL 11/08/2024 9:03 AM [facility] RDW 15.3 11.5 - 15.5 % 11/08/2024 9:03 AM [facility] PLATELET COUNT 54(L) 140 - 440 thou/cu mm 11/08/2024 9:03 AM [facility] MPV 10.9 6.5 - 11.0 fL 11/08/2024 9:03 AM [facility] % NEUT 74.9 % 11/08/2024 9:03 AM [facility] % LYMPH 19.5 % 11/08/2024 9:03 AM [facility] % MONO 4.9 % 11/08/2024 9:03 AM [facility] % EOS 0.5 % 11/08/2024 9:03 AM [facility] % BASO 0.2 % 11/08/2024 9:03 AM [facility] ABSOLUTE NEUTROPHILS 8.0(H) 1.7 - 7.0 thou/cu mm 11/08/2024 9:03 AM [facility] ABSOLUTE LYMPHOCYTES 2.1 0.9 - 2.9 thou/cu mm 11/08/2024 9:03 AM [facility] ABSOLUTE MONOCYTES 0.5 <0.9 thou/cu mm 11/08/2024 9:03 AM [facility] ABSOLUTE EOSINOPHILS 0.1 <0.5 thou/cu mm 11/08/2024 9:03 AM [facility] ABSOLUTE BASOPHILS 0.0 <0.3 thou/cu mm 11/08/2024 9:03 AM [facility] Blood BLOOD SPECIMEN / Unknown Butterfly / Unknown 11/08/2024 8:02 AM CDT 11/08/2024 8:13 AM T us Doctor Unknown HEMATOLOGY Final Result [facility] [address] [place] [address] * (ABNORMAL) PLATELET ESTIMATE (11/08/2024 8:02 AM CDT) Only the most recent of12 resultswithin the time period is included. PLATELET ESTIMATE Platelets are clumped and appear decreased(A) Adequate, No estimate 11/08/2024 9:03 AM [facility] Blood BLOOD SPECIMEN / Unknown Butterfly / Unknown 11/08/2024 8:02 AM CDT 11/08/2024 8:13 AM CDT us Doctor Unknown HEMATOLOGY Final Result [facility] [address] [place] [address] * (ABNORMAL) BASIC METABOLIC PANEL (11/08/2024 8:02 AM CDT) Only the most recent of4 resultswithin the time period is included. SODIUM 139 136 - 145 mmol/L 11/08/2024 8:38 AM [facility] POTASSIUM 4.4 3.5 - 5.1 mmol/L 11/08/2024 8:38 AM [facility] CHLORIDE 106 98 - 107 mmol/L 11/08/2024 8:38 AM [facility] CO2,TOTAL 20(L) 22 - 29 mmol/L 11/08/2024 8:38 AM [facility] ANION GAP 13 5 - 18 11/08/2024 8:38 AM [facility] GLUCOSE 73 70 - 99 mg/dL 11/08/2024 8:38 AM [facility] CALCIUM 8.3(L) 8.8 - 10.4 mg/dL 11/08/2024 8:38 AM [facility] Comment: Reference ranges for this test were updated on 04/04/2024 to reflect our healthy population more accurately. Reference range changes are not retroactively applied to results, but previous results using the same methodology can be interpreted in the context of the new reference range. BUN 20 8 - 23 mg/dL 11/08/2024 8:38 AM [facility] CREATININE 0.67 0.50 - 0.90 mg/dL 11/08/2024 8:38 AM [facility] BUN/CREAT RATIO 30(H) 10 - 20 8:38 AM CDT [facility] eGFR 85(L) >90 mL/min/1. 73m2 11/08/2024 8:38 AM CDT [facility] Comment:As of 2021, eG FR is [...] Unknown CHEMISTRY Final Result Performing Organization Address City/[facility]/ZIP Co de Phone Number [facility] [address] [place] [address] * (ABNORMAL) PLATELET COUNT (10/30/2024 7:10 AM CDT) Only the most recent of9 resultswithin the time period is included. PLATELET COUNT 124(L) 140 - 440 thou/cu mm 10/30/2024 9:16 AM CDT [facility] MPV 10/30/2024 9:16 AM CDT [facility] Comment:Unable to be determi noe Blood BLOOD SPECIMEN / Unknown Butterfly / Unknown 10/30/2024 7:10 AM CDT 10/30/2024 7:39 AM CDT Bibiana Bettencourt MD HEMATOLOGY Final Res ult [facility] [address] [place] [address], * HEMOGLOBIN (10/30/2024 7:10 AM CDT) Only the most recent of8 resultswithin the time period is included. HEMOGLOBIN 13.2 12.0 - 16.0 g/dL 10/30/2024 9:16 AM CDT [facility] MCV 93 80 - 100 fL 10/30/2024 9:16 AM CDT [facility] Blood BLOOD SPECIMEN / Unknown Butterfly / Unknown 10/30/2024 7:10 AM CDT 10/30/2024 7:39 AM CDT us Bibiana Bettencourt MD HEMATOLOGY Final Res ult Performing Organization Address [facility] Co de Phone Number [facility] [address] [place] [address], [place] * (ABNORMAL) APTT (10/30/2024 7:10 AM CDT) Only the most recent of21 resultswithin the time period is included. APTT 69(H) 25 - 36 sec 10/30/2024 7:58 AM CDT [facility] Blood BLOOD SPECIMEN / Unknown Butterfly / Unknown 10/30/2024 7:10 AM CDT 10/30/2024 7:39 AM CDT Narrative [facility] - 10/30/2024 7:58 AM CDT Therapeutic Range: 59-89 seconds us Bibiana Bettencourt MD HEMATOLOGY Final Res ult Performing Organization Address [facility] Co de Phone Number [facility] [address] [place] [address], [place] * GLUCOSE METER (10/30/2024 6:30 AM CDT) Only the most recent of42 resultswithin the time period is included. GLUCOSE METER 78 65 - 100 mg/dL 10/30/2024 10:52 AM CDT [facility] Blood BLOOD SPECIMEN / Unknown 10/30/2024 6:30 AM CDT 10/30/2024 10:52 AM CDT us Bibiana Bettencourt MD CHEMISTRY Final Res ult Performing Organization Address [facility] Co de Phone Number [facility] [address] [place] [address], [place] * SCAN-CARDIAC STRIP (10/30/2024 2:01 AM CDT) us Scanner OTHER Final Result * (ABNORMAL) WBC AM (10/29/2024 12:04 PM CDT) Only the most recent of8 resultswithin the time period is included. WHITE BLOOD COUNT 12.5(H) 4.5 - 11.0 thou/cu mm 10/29/2024 3:53 PM CDT [facility] NRBC 0.0 % 10/29/2024 3:53 PM CDT [facility] ABS NRBC 0.0 thou /cu mm 10/29/2024 3:53 PM CDT [facility] Blood BLOOD SPECIMEN / Unknown Venipuncture / Unknown 10/29/2024 12:04 PM CDT 10/29/2024 12:55 PM CDT us Bibiana Bettencourt MD HEMATOLOGY Final Res ult [facility] [address] [place] [address], * SCAN-CARDIAC STRIP (10/29/2024 6:00 AM CDT) [...] LABORATORY Final Res ult Performing Organization Address City/[facility]/ZIP Co de Phone Number [facility] [address] [place] [address], * (ABNORMAL) Sodium AM (10/28/2024 8:33 AM CDT) Only the most recent of3 resultswithin the time period is included. SODIUM 133(L) 136 - 145 mmol/L 10/28/2024 9:09 AM CDT [facility] Blood BLOOD SPECIMEN / Unknown Line/Port / Unknown 10/28/2024 8:33 AM CDT 10/28/2024 8:45 AM CDT us Bibiana Bettencourt MD CHEMISTRY Final Res ult Performing Organization Address [facility] Co de Phone Number [facility] [address] [place] [address], * SCAN-CARDIAC STRIP (10/28/2024 12:58 AM CDT) [...] 10/27/24. EF 67% on 12/15/2023. AP 5.1%, INTERLIBRARY LOAN SPECIALIST 0.4%. LRL at 50 bpm. Estimated 7.5 years battery longevity remaining. Indication for Pacemaker: AV Node dysfunction; new LBBB post TAVR Primary MD: Janelle Crawford MD Primary Technical Support Agent: Lc Emerson MD Implanting MD: Virgil Hernandez MD DEVICE DATA Paper Reeler Medtronic: Model: Adapta ADDRL Implant Date 02/10/2016 LEAD DATA Atrial Lead: Paper Reeler Medtronic: Model: 5076 - 45 cm Implant Date 02/10/2016 RV Lead: Paper Reeler Medtronic: Model: 5076 - 52 cm Implant Date 02/10/2016 Visit location: [facility] Reason For Evaluation: MD Request- low heart [...] months via [employer] (manual send) with annual Bay each September. Meri Torres, STEFANIE Nurse Clinician II I Pacemaker/ICD Clinic [phone] us Patel Delgado MD CARDIAC SERVICES OR D Final Result * SCAN-CARDIAC STRIP (10/27/2024 11:02 AM CDT) us Scanner OTHER Final Result * (ABNORMAL) TROPONIN T (HS) ONE TIME (10/27/2024 9:53 AM CDT) Only the most recent of2 resultswithin the time period is included. TROPONIN T HS 52(H) 6-10 ng/L ng/L 10/27/2024 10:28 AM CDT [facility] Blood BLOOD SPECIMEN / Unknown Non-Lab Venipuncture / Unknown 10/27/2024 9:53 AM CDT 10/27/2024 10:02 AM CDT Narrative [facility] - 10/27/2024 10:28 AM CDT [...] MD CHEMISTRY Final Result Performing Organization Address City/[facility]/ZIP Co de Phone Number [facility] [address] [place] [address], [place] * Lactate, Venous - CLAIMS INVESTIGATOR (10/27/2024 9:53 AM CDT) Only the most recent of2 resultswithin the time period is included. [facility] LACTATE,VENOUS 1.8 0.5 - 2.0 mmol/L 10/27/2024 10:26 AM CDT [facility] Blood BLOOD SPECIMEN / Unknown Non-Lab Venipuncture / Unknown 10/27/2024 9:53 AM CDT 10/27/2024 10:02 AM CDT Lisette Carson MD CHEMISTRY Final Resul t Performing Organization Address [facility]/ZIP Co de Phone Number [facility] [address] [place] [address], [place] * AMMONIA (10/27/2024 9:53 AM CDT) Only the most recent of2 resultswithin the time period is included. Pathologist [facility] AMMONIA 28 16 - 60 umol/L 10/27/2024 10:26 AM CDT [facility] Blood BLOOD SPECIMEN / Unknown Non-Lab Venipuncture / Unknown 10/27/2024 9:53 AM CDT 10/27/2024 10:02 AM CDT Narrative [facility] - 10/27/2024 10:26 AM CDT 1. Sulfasalazine and its metabolite Sulfapyridine at therapeutic concentrations may lead to falsely low results. 2. Temozolomide and its metabolite MTIC may lead to falsely elevated results, and its metabolite AIC may lead to falsely low results. us Lisette Carson MD CHEMISTRY Final Resul t [facility] [address] [place] [address], * (ABNORMAL) Arterial Blood Gas - CLAIMS INVESTIGATOR (10/27/2024 9:44 AM CDT) PH, ARTERIAL 7.44 7.35 - 7.45 10/27/2024 10:04 AM CDT [facility] PCO2, ARTERIAL 35 32 - 45 mmHg 10/27/2024 10:04 AM T [facility] PO2, ARTERIAL 121(H) 83 - 108 mmHg 10/27/2024 10:04 AM T [facility] HCO3, ARTERIAL 24 21 - 28 mmol/L 10/27/2024 10:04 AM T [facility] BASE EXCESS, ARTERIAL 0.1 -2.0 - 3.0 10/27/2024 10:04 AM [facility] O2 SATURATION, ARTERIAL 100(H) 94 - 98 % 10/27/2024 10:04 AM T [facility] INSPIRED O2 6 10/27/2024 10:04 AM T [facility] Comment: Unit of Measure: Liters (L) if <=20; Percent (%) if >20 This is an appended report. These results have been appended to a previously final verified report. PATIENT TEMPERATURE 37.0 Degrees C 10/27/2024 10:04 AM CDT [facility] Blood ARTERIAL BLOOD SPECIMEN / Unknown Non-Lab Venipuncture / Unknown 10/27/2024 9:44 AM CDT 10/27/2024 9:51 AM CDT us Bibiana Bettencourt MD CHEMISTRY Edited Re sult - Final Performing Organization Address City/[facility] Co de Phone Number [facility] [address] [place] [address], [place] * 12 Lead EKG - CLAIMS INVESTIGATOR (10/27/2024 9:37 AM CDT) Only the most [...] NOW QTc 405 ms BEYOND NOW P Crane 37 degrees BEYOND NOW R Crane -49 degrees BEYOND NOW T Crane 33 degrees BEYOND NOW 10/27/2024 9:37 AM CDT 11/01/2024 12:25 PM CDT us Bibiana Bettencourt MD EKG ORD Final Res ult Performing Organization Address City/[facility] Co de Phone Number BEYOND NOW [place], [place] * POTASSIUM (10/27/2024 7:42 AM CDT) Only the most recent of9 resultswithin the time period is included. POTASSIUM 3.7 3.5 - 5.1 mmol/L 10/27/2024 8:15 AM CDT [facility] Blood BLOOD SPECIMEN / Unknown Venipuncture / Unknown 10/27/2024 7:42 AM CDT 10/27/2024 7:48 AM CDT us Bibiana Bettencourt MD CHEMISTRY Final Res ult Performing Organization Address City/[facility]/ZIP Co de Phone Number [facility] [address] [place] [address], [place] * MAGNESIUM (10/27/2024 7:42 AM CDT) Only the most recent of8 resultswithin the time period is included. MAGNESIUM 1.6 1.6 - 2.4 mg/dL 10/27/2024 8:15 AM CDT [facility] Blood BLOOD SPECIMEN / Unknown Venipuncture / Unknown 10/27/2024 7:42 AM CDT 10/27/2024 7:48 AM CDT Bibiana Bettencourt MD CHEMISTRY Final Res ult Performing Organization Address [facility] Co de Phone Number [facility] [address] [place] [address], [place] * (ABNORMAL) COMP METABOLIC PANEL (10/27/2024 7:42 AM CDT) SODIUM 132(L) 136 - 145 mmol/L 10/27/2024 10:07 AM CDT [facility] POTASSIUM 3.7 3.5 - 5.1 mmol/L 10/27/2024 10:07 AM CDT [facility] CHLORIDE 100 98 - 107 mmol/L 10/27/2024 10:07 AM CDT [facility] CO2,TOTAL 22 22 - 29 mmol/L 10/27/2024 10:07 AM CDT [facility] ANION GAP 10 5 - 18 10/27/2024 10:07 AM CDT [facility] GLUCOSE 106(H) 70 - 99 mg/dL 10/27/2024 10:07 AM CDT [facility] CALCIUM 7.4(L) 8.8 - 10.4 mg/dL 10/27/2024 10:07 AM CDT [facility] Comment: Reference ranges for this test were updated on 04/04/2024 to reflect our healthy population more accurately. Reference range changes are not retroactively applied to results, but previous results using the same methodology can be interpreted in the context of the new reference range. BUN 14 8 - 23 mg/dL 10/27/2024 10:07 AM T [facility] CREATININE 0.72 0.50 - 0.90 mg/dL 10/27/2024 10:07 AM T [facility] BUN/CREAT RATIO 19 10 - 20 10:07 AM T [facility] eGFR 82(L) >90 mL/min/1. 73m2 10/27/2024 10:[address] [facility] Comment:As of 2021, eG FR is calculated by the CKD-EPI creatinine equation without race adjustment. eGFR can be influenced by muscle mass, exercise, and diet. The reported eGFR is an estimation only and is only applicable if the renal function is stable. ALBUMIN 2.1(L) 4.0 - 4.9 g/dL 10/27/2024 10:07 AM T [facility] TRAL [facility] PROTEIN,TOTAL 3.8(L) 6.0 - 8.0 g/dL 10/27/2024 10:07 AM T [facility] BILIRUBIN,TOTAL 0.7 0.0 - 1.2 mg/dL 10/27/2024 10:07 AM T [facility] TRA [facility]OR[facility] ALK PHOSPHATASE 63 35 - 104 IU/L 10/27/2024 10:07 AM [facility] ALT (SGPT) 20 10 - 35 IU/L 10/27/2024 10:07 AM T [facility] AST (SGOT) 27 10 - 35 IU/L 10/27/2024 10:07 AM T [facility] Blood BLOOD SPECIMEN / Unknown Venipuncture / Unknown 10/27/2024 7:42 AM CDT 10/27/2024 7:48 AM CDT us Lisette Carson MD CHEMISTRY Final Resul t Performing Organization Address City/[facility]/ZIP Co de Phone Number [facility] [address] [place] [address], [place] * EXTRA TUBE LIGHT GREEN (10/25/2024 12:52 PM CDT) Blood BLOOD SPECIMEN / Unknown Butterfly / Unknown 10/25/2024 12:52 PM CDT 10/25/2024 12:58 PM CDT us Doctor Unknown LABORATORY Final Result Performing Organization Address City/[facility] Co de Phone Number [facility] [address] [place] [address], [place] * PATH TISSUE EXAM (10/25/2024 10:35 AM CDT) Case Report Pathology Report Case: [id number] Authorizing Provider: George Stuart MD Collected: 10/25/2024 1035 Ordering Location: [facility] Received: 10/25/[address] [facility] Pathologist: Natalya Villar MD Specimen: Esophagus, esophgus biopsy 10/27/2024 8:38 AM CDT [facility]- ENTRAL LABORATORY Final Diagnosis A) ESOPHAGUS, BIOPSY: 1. Margarita esophagitis 2. 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 Negative for reflux changes and eosinophilic esophagitis 4. Negative for columnar mucosa 10/27/2024 8:38 AM CDT [facility]-C ENTRAL LABORATORY at 0838 CDT Clinical Information Dysphagia. Upper GI endoscopy showed likely Margarita esophagitis. 10/27/2024 8:38 AM CDT [facility]- ENTRAL LAB[facility]AT[facility] Gross Description A) Received in formalin is a lott mucosal fragment measuring 2 mm in greatest dimension, which is entirely submitted in one cassette. It is labeled with the patient's name and designated esophagus biopsy. Samanthalila Maya 10/25/2024 2:42 PM 10/27/2024 8:38 AM CDT [facility]-C ENTRAL LABORATORY Microscopic Description The final diagnosis is based on microscopic examination of appropriate sections of all specimens. 10/27/2024 8:38 AM CDT [facility]-C ENTRAL LABORATORY Additional Information Interpreted at [facility], Central Laboratory - [address] [facility] [address], [place] [address] 10/27/2024 8:38 AM CDT [facility] LABORATORY-C ENTRAL LABORATORY Tissue SPECIMEN FROM ESOPHAGUS / Unknown 10/25/2024 10:35 AM CDT 10/25/2024 11:08 AM CDT us George Stuart MD PATHOLOGY/CYTOLOGY Final Re sult [facility]-CENTRAL LABORATORY [address] [place] [address], [place] * ENDOSCOPY (10/25/2024 10:08 AM CDT) [...] surgery and alternatives discussed. The endosocpe [id number] was introduced through the mouth, and advanced [...] 7.32 - 7.43 10/24/2024 10:05 PM CDT [facility] PCO2, VENOUS 37(L) 41 - 51 mmHg 10/24/2024 10:05 PM CDT [facility] PO2, VENOUS 58(H) 35 - 40 mmHg 10/24/2024 10:05 PM CDT [facility] HCO3,VENOUS 26 22 - 29 mmol/L 10/24/2024 10:05 PM CDT [facility] BASE EXCESS, VENOUS, POCT 1.8 -2.0 - 3.0 10/24/2024 10:05 PM CDT [facility] O2 SATURATION, VENOUS 93(H) 70 - 75 % 10/24/2024 10:05 PM CDT [facility] PATIENT TEMPERATURE 37.0 Degrees C 10/24/2024 10:05 PM CDT [facility] Blood VENOUS BLOOD SPECIMEN / Unknown Diversion Device / Unknown 10/24/2024 9:51 PM CDT 10/24/2024 9:56 PM CDT us Bibiana Bettencourt MD CHEMISTRY Final Res ult [facility] [address] [place] [address], [place] * CT HEAD BRAIN WO (10/24/2024 [...] See Comment U/mL 10/24/2024 7:03 PM CDT [facility] TRAL LABORATORY Blood BLOOD SPECIMEN / Unknown Diversion Device / Unknown 10/24/2024 6:19 PM CDT 10/24/2024 6:31 PM CDT Narrative [facility]-CENTRAL LABORATORY - 10/24/2024 7:03 PM [...] HEMATOLOGY Final Res ult Performing Organization Address City/[facility]/ZIP Co de Phone Number [facility] [address] [address], [place] * (ABNORMAL) Creatinine AM (10/24/2024 7:36 AM CDT) Only the most recent of3 resultswithin the time period is included. Pathologist [facility] [place] eGFR 85(L) >90 mL/min/1.7 3m2 10/24/2024 8:45 AM CDT [facility] Comment:As of 2021, eG FR is calculated by the CKD-EPI creatinine equation without race adjustment. eGFR can be influenced by muscle mass, exercise, and diet. The reported eGFR is an estimation only and is only applicable if the renal function is stable. CREATININE 0.67 0.50 - 0.90 mg/dL 10/24/2024 8:45 AM CDT [facility] Blood BLOOD SPECIMEN / Unknown Butterfly / Unknown 10/24/2024 7:36 AM CDT 10/24/2024 8:17 AM CDT us Bibiana Bettencourt MD CHEMISTRY Final Res ult Performing Organization Address City/[facility]/ZIP Co de Phone Number [facility] [address] [place] [address], [place] * (ABNORMAL) CBC W PLT NO DIFF (10/23/2024 4:20 AM CDT) Only the most recent of2 resultswithin the time period is included. [facility] WHITE BLOOD COUNT 10.5 4.5 - 11.0 thou/cu mm 10/23/2024 5:02 AM T [facility] RED BLOOD COUNT 3.53(L) 4.00 - 5.20 mil/cu mm 10/23/2024 5:02 AM [facility] TRAL LAB[facility] HEMOGLOBIN 11.6(L) 12.0 - 16.0 g/dL 10/23/2024 5:02 AM [facility]AL [facility] HEMATOCRIT 33.6 33.0 - 51.0 % 10/23/2024 5:02 AM [facility] TRAL LAB[facility] MCV 95 80 - 100 fL 10/23/2024 5:02 AM T [facility] MCH 32.9 26.0 - 34.0 pg 10/23/2024 5:02 AM [facility] TRAL LAB[facility] MCHC 34.5 32.0 - 36.0 g/dL 10/23/2024 5:02 AM [facility]AL [facility] RDW 14.3 11.5 - 15.5 % 10/23/2024 5:02 AM [facility]AL [facility] PLATELET COUNT 205 140 - 440 thou/cu mm 10/23/2024 5:02 AM T [facility] MPV 11.6(H) 6.5 - 11.0 fL 10/23/2024 5:02 AM [facility]AL [facility] NRBC 0.0 % 10/23/2024 5:02 AM T [facility] ABS NRBC 0.0 thou /cu mm 10/23/2024 5:02 AM [facility] Blood BLOOD SPECIMEN / Unknown Venipuncture / Unknown 10/23/2024 4:20 AM CDT 10/23/2024 4:26 AM T us George Carroll MD HEMATOLOGY Final Res ult [facility] [address] [place] [address], [place] * PROTIME-INR (10/23/2024 4:20 AM CDT) Only the most recent of2 resultswithin the time period is included. INR 1.1 <1.3 10/23/2024 4:43 AM CDT [facility] PROTIME 12.4 10.6 - 12.4 sec 10/23/2024 4:43 AM CDT [facility] Blood BLOOD SPECIMEN / Unknown Venipuncture / Unknown 10/23/2024 4:20 AM CDT 10/23/2024 4:26 AM CDT Narrative [facility] - 10/23/2024 4:43 AM CDT Therapeutic [...] Carroll MD HEMATOLOGY Final Res ult [facility] [address] [place] [address], [place] * [place] VENOUS LOWER EXTREMITY BILATERAL [...] included. ACANTHOCYTES Few 10/22/2024 9:57 PM CDT [facility] ELLIPTOCYTES Few 10/22/2024 9:57 PM CDT [facility] RBC COMMENT Present(A) RBC morphology appears normal, RBC morphology within normal limits for newborns. 10/22/2024 9:57 PM CDT [facility] WBC REACTIVE LYMPHS Present 10/22/2024 9:57 PM CDT [facility] Blood BLOOD SPECIMEN / Unknown Butterfly / Unknown 10/22/2024 8:16 PM CDT 10/22/2024 8:22 PM CDT us Susie LÓPEZ HEMATOLOGY Final R esult [facility] [address] [place] [address] * ECHO TTE COMPLETE WO CONTRAST (10/06/2024 10:53 AM CDT) Pathologist [facility] [place] AORTIC VALVE MEAN PG 14 mmHg EJECTION [...] Tech: PM Referring MD: RAMIN OSBORNE Site: [facility] Reading Location: W Patient Location: Inpatient. Procedure: [...] . This study was interpreted by an [facility] accredited facility. Final Procedure Note Redd Gallagher MD - 10/06/2024 ECHOCARDIOGRAM KAJAL FRANCOIS : 1940 83 years Study Date: 10/06/2024 9:50:25 AM Gender: F BP: 155/72 mmHg Height: 154.00 cm BSA: 1.68 m Weight: 70.00 kg Tech: PM Referring MD: RAMIN OSBORNE Site: [facility] [place] Location: [facility] Patient Location: Inpatient. Procedure: 2D, Color [...] . This study was interpreted by an [facility] accredited facility. Final us Ramin Osborne MD ECHO ORD Final Res ult * PACER TOMMIE DUAL CHAMBER WO REPROG (10/06/2024 9:19 AM CDT) Narrative Virgil Hernandez MD - 10/06/2024 9:19 AM CDT Virgil Hernandez MD 10/13/2024 10:43 AM PACEMAKER EVALUATION REPORT 10/06/2024 Summary: Normal pacemaker function. Lead trends stable. No true VT detections. EF 67% on 12/15/2023. AP 21.7%, INTERLIBRARY LOAN SPECIALIST 0.3%. Estimated 7.5 years battery longevity remaining. Indication for Pacemaker: AV Node dysfunction; new LBBB post TAVR Primary MD: Janelle Crawford MD Primary Technical Support Agent: Lc Emerson MD Implanting MD: Virgil Hernandez MD DEVICE DATA Paper Reeler Medtronic: Model: Adapta ADDRL Implant Date 02/10/2016 LEAD DATA Atrial Lead: Paper Reeler Medtronic: Model: 5076 - 45 cm Implant Date 02/10/2016 RV Lead: Paper Reeler Medtronic: Model: 5076 - 52 cm Implant [...] Routine follow up: Every 4 months via Sparkfly (manual send) with annual Bay each September. Baljit Jo RN Nurse Clinician II [facility] Pacemaker/ICD Clinic [phone] Virgil Hernandez MD CARDIAC SERVICES ORD Fin al Result * PHOSPHORUS (10/06/2024 12:52 AM CDT) PHOSPHORUS 3.3 2.5 - 4.5 mg/dL 10/06/2024 10:13 AM CDT [facility] Blood BLOOD SPECIMEN / Unknown Venipuncture / Unknown 10/06/2024 12:52 AM CDT 10/06/2024 1:06 AM CDT Jose Luis Lozano DO CHEMISTRY Final Result [facility]-CENTRAL LABORATORY [address] [place] [address], [place] * (ABNORMAL) UA W/ SEDIMENT EXAM REFLEXED PER CRITERIA (10/05/2024 2:55 PM CDT) COLOR Yellow Yellow Color 10/05/2024 3:03 PM [facility] CLARITY Clear Clear Clarity 10/05/2024 3:03 PM [facility] SPECIFIC GRAVITY,URINE >=1.030(A) 1.010, 1.015, 1.020, 1.025 10/05/2024 3:03 PM [facility] PH,URINE 5.5 6.0, 7.0, 8.0, 5.5, 6.5, 7.5, 8.5 10/05/2024 3:03 PM [facility] UROBILINOGEN, QUALITATIVE Normal Normal EU/dl 10/05/2024 3:03 PM [facility] PROTEIN, URINE Negative Negative mg/dL 10/05/2024 3:03 PM [facility] GLUCOSE, URINE Negative Negative mg/dL 10/05/2024 3:03 PM [facility] KETONES,URINE Negative Negative mg/dL 10/05/2024 3:03 PM [facility] BILIRUBIN,URI NE Negative Negative 10/05/2024 3:03 PM [facility] OCCULT BLOOD,URINE Negative Negative 10/05/2024 3:03 PM [facility] NITRITE Negative Negative 10/05/2024 3:03 PM [facility] LEUKOCYTE ESTERASE Negative Negative 10/05/2024 3:03 PM [facility] Urine URINE SPECIMEN / Unknown Non-Blood / Unknown 10/05/2024 2:55 PM CDT 10/05/2024 3:00 PM CDT us Adrian Jose MD URINE Final Result Performing Organization Address [facility]/ZIP Co de Phone Number [facility] [address] [place] [address] * COVID-19 MOLECULAR (10/05/2024 2:51 PM CDT) Pathologist [facility] [place] COVID 19 ALLSUBHA MOLECULAR Not detected Not detected 10/05/2024 3:15 PM CDT [facility] TESTING LABORATORY [facility] 10/05/2024 3:15 PM CDT [facility] Comment:Specimen submitted t o [facility] Laboratory for testing. Other SPECIMEN FROM NASOPHARYNGEAL STRUCTURE / Unknown Non-Blood / Unknown 10/05/2024 2:51 PM CDT 10/05/2024 2:54 PM CDT Adrian Jose MD MICROBIOLOGY Final Result [facility] [address] [place] [address] * INFLUENZA A/B PCR (10/05/2024 2:51 PM CDT) [facility] INFLUENZA A PCR NOT Detected 10/05/2024 3:15 PM CDT [facility] INFLUENZA B PCR NOT Detected 10/05/2024 3:15 PM CDT [facility] Other SPECIMEN FROM NASOPHARYNGEAL STRUCTURE / Unknown Non-Blood / Unknown 10/05/2024 2:51 PM CDT 10/05/2024 2:54 PM CDT Adrian Jose MD MICROBIOLOGY Final Result [facility] [address] [place] [address] * XR CHEST 1 VIEW PORTABLE (10/05/2024 [...] 6-10 ng/L ng/L 10/05/2024 2:00 PM CDT [facility] Blood BLOOD SPECIMEN / Unknown Butterfly / Unknown 10/05/2024 1:23 PM CDT 10/05/2024 1:28 PM CDT Narrative [facility] - 10/05/2024 2:00 PM CDT hs-cTnT [...] us Adrian Jose MD CHEMISTRY Final Result [facility] [address] [place] [address] * TSH WITH REFLEX (10/05/2024 1:23 PM CDT) TSH 2.73 0.27 - 4.20 uIU/mL 10/05/2024 2:00 PM CDT [facility] Blood BLOOD SPECIMEN / Unknown Butterfly / Unknown 10/05/2024 1:23 PM CDT 10/05/2024 1:28 PM CDT [facility] LABORAT[facility] - 10/05/2024 2:00 PM CDT In Adults, TSH values between 5.00 and 10.00 uIU/ml do not necessarily indicate the presence of Hypothyroidism. Correlation with clinical findings such as presence of goiter and/or Thyroperoxidase (TPO) Antibody may be helpful. For more information please refer to DOUGLAS 2004; 291: 228-238. Adrian Jose MD CHEMISTRY Final Result Performing Organization Address City/[facility]/ZIP Co de Phone Number [facility] [address] [place] [address] * ETHANOL SERUM OR PLASMA (10/05/2024 1:23 PM CDT) Pathologist [facility] [place] ETHANOL <0.010 <0.010 g/dL 10/05/2024 2:00 PM CDT [facility] Blood BLOOD SPECIMEN / Unknown Butterfly / Unknown 10/05/2024 1:23 PM CDT 10/05/2024 1:28 PM CDT Adrian Jose MD CHEMISTRY Final Result [facility] [address] [place] [address] * (ABNORMAL) PRO-BNP (10/05/2024 1:23 PM CDT) Only the most recent of2 resultswithin the time period is included. PRO-BNP 1,529(H) <450 pg/mL 10/05/2024 2:04 PM CDT [facility] Blood BLOOD SPECIMEN / Unknown Butterfly / Unknown 10/05/2024 1:23 PM CDT 10/05/2024 1:28 PM CDT [facility] LABORATORY - 10/05/2024 2:04 PM CDT The [...] Adrian Jose MD SEND OUTS Final Result [facility] [address] [place] [address] * (ABNORMAL) HEPATIC FUNCTION PANEL (10/05/2024 1:23 PM CDT) ALBUMIN 3.5(L) 4.0 - 4.9 g/dL 10/05/2024 2:00 PM CDT [facility] PROTEIN,TOTAL 5.5(L) 6.0 - 8.0 g/dL 10/05/2024 2:00 PM T [facility] BILIRUBIN,TOTAL 1.2 0.0 - 1.2 mg/dL 10/05/2024 2:00 PM T [facility] BILIRUBIN,DIRECT 0.6(H) 0.0 - 0.2 mg/dL 10/05/2024 2:00 PM T [facility] BILIRUBIN,INDIRE CT 0.6 0.2 - 0.8 mg/dL 10/05/2024 2:00 PM CDT [facility] ALK PHOSPHATASE 104 35 - 104 IU/L 10/05/2024 2:00 PM CDT [facility] ALT (SGPT) 23 10 - 35 IU/L 10/05/2024 2:00 PM CDT [facility] AST (SGOT) 35 10 - 35 IU/L 10/05/2024 2:00 PM CDT [facility] Blood BLOOD SPECIMEN / Unknown Butterfly / Unknown 10/05/2024 1:23 PM CDT 10/05/2024 1:28 PM CDT Adrian Jose MD CHEMISTRY Final Result Performing Organization Address [facility]/ZIP Co de Phone Number [facility] [address] [place] [address] * TYPE AND SCREEN ONLY (10/05/2024 1:22 PM CDT) Pathologist [facility] [place] ABORH A Rh Positive 10/05/2024 2:21 PM CDT [facility] BLOOD BANK ANTIBODY SCREEN Negative Negative 10/05/2024 2:21 PM CDT [facility] BLOOD BANK SPECIMEN EXPIRATION DATE/TIME 10/08/24 23:59 10/05/2024 2:21 PM CDT [facility] BLOOD BANK Blood BLOOD SPECIMEN / Unknown Butterfly / Unknown 10/05/2024 1:22 PM CDT 10/05/2024 1:28 PM CDT Adrian Jose MD BLOOD BANK Final Result [facility] BLOOD BANK [address] [place] [address] * (ABNORMAL) XR DXA BONE DENSITY 2 [...] Patients: Results are automatically released to your [employer] account once available, in compliance with federal regulations. This means that you may see your results before your provider has had a chance to review them. Please allow 2-3 business days for your provider to comment on the results. XR DXA Bone Mineral Density (BMD) EXAM LOCATION: [address] [id number] PATIENT NAME: Kajal Francois DATE OF : [...] two scanners are made by the same field support rep. PROCEDURE: Dual-energy x-ray absorptiometry performed with routine [...] Health Maintenance Insurance [employer] MED[employer] ADVANTAGE MR [facility] FFS HC [employer] MED[employer]ARE PDGM [facility] Advance Directives Documents on File Type Date Recorded Patient Associate Financial Analyst Expl anation Healthcare Directive 03/25/2023 023 Healthcare Directive 2011 4:11 PM [place] [facility] [place]ARE DIRECT[place], [facility], 2011 * Full Code (Latest Code [...] Code Status Discussion: Reviewed Preferences Care Teams Equipment Operator Wage Hand Relationship Specialty Start Date End Date Janelle Crawford MD [address] [place], [place] [address] [address] PCP - General Internal Medicine 05/13/15 Hailee Mclean, RN [address] [phone] Wound/Ostomy Clinical Nurse Specialist - [facility] Registered Nurse 03/31/16 [facility] [place] [address] [address] 12/20/19 Loida Carrillo RN [address] [phone] Wound/Ostomy Clinical Nurse Specialist - [facility] Registered Nurse 03/21/21 [facility] [place] [address] [address] 10/07/24 Liz Garcia, RN [address] [phone] Wound/Ostomy Clinical Nurse Specialist - [facility] 10/14/21
== END 2024-11-16 16:39 | disposition home or self-care (01) ==
PROVIDERS: Visit Provider Emergency Medicine
DX: R41.82 Altered mental status, unspecified (principal); M79.89 Other specified soft tissue disorders; E43 Unspecified severe protein-calorie malnutrition
CPT/HCPCS: A0425; A0428

== ENCOUNTER 2024-11-18 21:33 | Outpatient (CLI) | payer OTHER, SELFPAY ==
--- OUTSIDE RECORDS SUMMARY | 2024-11-21 00:23 | XMS_ITS | Clinical Summary ---
Author Organization [facility] Address [address] [place] [address] Care Team Providers Care Asphalt Worker Name Role Phone Janelle Crawford MD Primary Care Provider + [phone] Hailee Mclean RN Unavailable [phone] [facility], [place] Unavailable Loida Carrillo RN Unavailable [facility], [place] Unavailable Allergies Active Allergy Reactions Criticality Noted [...] once daily. 10/31/19 25 Active vit C-vit N-vqxwsl-lizm ox-lutein (PRESERVISION) 226-200-5-0.8 ok-kffo-uc-mg cap Take 1 capsule by mouth once [...] she underwent prior gastric bypass, Geovanna-en-Y at [facility] in the 1979's. -per chart review, appears [...] Overview (06/01/2023): -s/p Geovanna-en-Y gastric bypass in [address] [place] [address] Iron deficiency anemia 02/26/202106/19 Iron deficiency anemia [...] Encounters Date Type Department Care Team Description 11/21/19 25 Home Care Visit [facility] [address] [place] [address] Hanh Horn, STEFANIE CARE COORDINATION 11/16/19 25 Office Visit [facility] [address] [place] [phone] Viviane Peters DO Telehealth ( encounter. [place]. ) 11/08/19 25 Lab Requisition [facility] [phone] Unknown, Doctor 11/07/19 25 Home Care Visit [facility] [address] [place] [address] Hanh Horn, STEFANIE CARE COORDINATION 10/26/19 25 10:38 AM CDT - 10/26/19 25 11:10 AM CDT Surgery [facility] [address] [place] [address] George Stuart MD ESOPHAGOGASTRODUODENOSCOPY WITH BIOPSY 10/26/19 25 10:24 AM CDT Anesthesia Event [facility] [address] [place] [address] Khadra Merchant MD Zimmerman, Anna A, CRNA 10/25/19 25 Home Care Visit [facility] [address] [place] [address] Hanh Horn, STEFANIE SN - OASIS TRANSFER 10/24/19 25 1:00 AM CDT - 10/31/19 25 1:30 PM CDT Hospital Encounter [facility] [address] [place] [address] [facility], [facility] Hospitalists Of Carly MD Sg Sultana, MD Deion Aguilar, Ioana Leary MD Deep vein thrombosis (DVT) of proximal lower extremity, unspecified chronicity, unspecified laterality (HC) (Primary Dx); Weight loss, unintentional; Fungal esophagitis; Esophageal stenosis Discharge Disposition: [facility] 10/24/19 25 Home Care Visit [facility] [address] [place] [address] Hanh Horn RN CARE TRANSITION NOTE 10/23/19 7:28 PM CDT - 10/23/19 11:52 PM CDT Emergency [facility] [address] [place] [address] Susie Bang PA Katzung, Sara Cazares MD Dysphagia, unspecified type (Primary Dx); Hypokalemia Discharge Disposition: Short Term/[facility] Hosp 10/23/19 Travel 10/21/19 Telephone [facility] [address] [place] [address] Janelle Crawford MD Error-please disregard 10/21/19 Telephone [facility] [address] [place] [address] Joe Elliott, ENGRAVER PANTOGRAPH Home Care (Worsening Dysphagia ) 10/20/19 12:15 PM CDT Home Care Visit [facility] [address] [place] [phone] Joe Elliott, ENGRAVER PANTOGRAPH ENGRAVER PANTOGRAPH - INITIAL ASSESSMENT 10/18/19 2:30 PM CDT Home Care Visit [facility] [address] [place] [phone] Patricia Tavarez, PT PT - [id number] ASSESSMENT 10/18/19 12:30 PM CDT Home Care Visit [facility] [address] [place] [phone] Hanh Horn RN SN - HOME VISIT 10/14/19 25 Home Care Visit [facility] [address] [place] [address] Paula Cole, PT CARE COORDINATION 10/14/19 Nurse Triage [facility] [address] [place] [address] Janelle Crawford MD Appointment 10/13/19 25 Home Care Visit [facility] [address] [place] [address] Paula Cole, PT CARE COORDINATION 10/12/19 25 1:45 PM CDT Office Visit [address] [phone] Janelle Crawford MD Hospital F/U 10/12/19 25 Travel 10/12/19 25 Home Care Visit [facility] [address] [place] [address] Hanh Horn, STEFANIE CARE COORDINATION 10/11/19 11:30 AM CDT Home Care Visit [facility] [address] [place] [phone] Hanh Horn, RN SN - OASIS START OF CARE 10/11/19 Telephone [facility] [address] [place] [address] Hanh Horn, see wheeler (Leg edema) 10/11/19 25 Plan of Care Documentation [facility] [address] [place] [phone] 10/10/19 25 Transcribe Orders [facility] [address] [place] [phone] Jose Luis Lozano DO 10/10/19 25 Patient Outreach [address] [address] Ella Morrison RN Primary RN Care Management (Hospital DC: 10/07/24/LACE: 64/Dysphagia ); Hospital F/U 10/06/19 11:31 PM CDT - 10/08/19 12:58 PM CDT Hospital Encounter [facility] [address] [place] [address] [facility], [facility] Hospitalists Of Ha, MD Hallie Small Krishna Kumar Kuttakkattu, JAE Residents, A2 S/P TAVR (transcatheter aortic valve replacement) (Primary Dx); Dysphagia, unspecified type; Weight loss, unintentional Discharge Disposition: Home Health 10/06/19 12:06 PM CDT - 10/06/19 10:30 PM CDT Emergency [facility] [address] [place] [address] Adrian Jose MD Hospitalist, [facility] Md Jean-Baptiste, Dmitriy Austin, Tricia Parra, Dysphagia, unspecified type (Primary Dx) Discharge Disposition: Short Term/PPS Hosp 10/06/19 Travel 09/16/19 Telephone [facility] [address] [place] [address] Janelle Crawford MD Results 09/14/19 9:35 AM CDT Office Visit [facility] [address] [place] [address] Janelle Crawford MD Leg Swelling 09/14/19 Travel 09/02/19 Nurse Triage [facility] [address] [place] [address] Janelle Crawford MD Leg Swelling (Bilateral severe ) 09/02/[address] [address] Janelle Crawford MD Error-please disregard 08/30/19 Telephone [facility] [address] [place] [address] Tasha Christian, Chart Review 08/25/19 25 2:10 PM CDT Office Visit [address] [place] [address] Janelle Crawford MD Hospital F/U (ED DOS: [...] on file Legal Sex Female 5:23 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 Gender Identity Not on file Sexual Orientation Not on file 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 Not on file Not on file Not [...] Description 12/04/2024 11:00 AM CDT Office Visit [facility] [address] [place] [address] Norman Mckeon MD [address] [place] [address] 12/14/2024 12:30 PM CDT Office Visit [facility] [address] [place] [address] Vivek Cox MD [address] [place] [address] 12/14/2024 3:00 PM CDT Orders Only [facility] [place] [facility] [address] [place] [address] 02/27/2025 Cardiac Device Check [facility] [place] [facility] [place] [phone] Health Maintenance Due Date Last Done Comments [...] this topic Medical Devices Implanted Type Area Snout Puller Device Identifier Shelf Expiration Date Model / Serial / Lot Dual Chamber Pacemaker Implanted:2015 by Virgil Hernandez MD (Quantity not on file) Standard Pacemaker Medtronic ADAPTA [id number] / [id number] / Valve Aortic 26mm Nicolle 3 Transcatheter Sys Commander - [id number] Implanted:Qty: 1 on 02/05/2016 by Manish Flores MD at [facility] Aortic Valve [employer] 10/16/2016 [id number]# / [id number] / Procedures Procedure Name Priority Date/Time Associated [...] ITH BIOPSY 10/25/2024 10:19 AM CDT see MD wu ENDOSCOPY 10/25/2024 10:08 AM CDT APTT Timed [...] - 11.0 thou/cu mm 11/08/2024 9:03 AM [facility] RED BLOOD COUNT 4.30 4.00 - 5.20 mil/cu mm 11/08/2024 9:03 AM [facility] HEMOGLOBIN 13.5 12.0 - 16.0 g/dL 11/08/2024 9:03 AM [facility] HEMATOCRIT 40.9 33.0 - 51.0 % 11/08/2024 9:03 AM [facility] MCV 95 80 - 100 fL 11/08/2024 9:03 AM [facility] MCH 31.4 26.0 - 34.0 pg 11/08/2024 9:03 AM [facility] MCHC 33.0 32.0 - 36.0 g/dL 11/08/2024 9:03 AM [facility] RDW 15.3 11.5 - 15.5 % 11/08/2024 9:03 AM [facility] PLATELET COUNT 54(L) 140 - 440 thou/cu mm 11/08/2024 9:03 AM [facility] MPV 10.9 6.5 - 11.0 fL 11/08/2024 9:03 AM [facility] % NEUT 74.9 % 11/08/2024 9:03 AM [facility] % LYMPH 19.5 % 11/08/2024 9:03 AM [facility] % MONO 4.9 % 11/08/2024 9:03 AM [facility] % EOS 0.5 % 11/08/2024 9:03 AM [facility] % BASO 0.2 % 11/08/2024 9:03 AM [facility] ABSOLUTE NEUTROPHILS 8.0(H) 1.7 - 7.0 thou/cu mm 11/08/2024 9:03 AM [facility] ABSOLUTE LYMPHOCYTES 2.1 0.9 - 2.9 thou/cu mm 11/08/2024 9:03 AM [facility] ABSOLUTE MONOCYTES 0.5 <0.9 thou/cu mm 11/08/2024 9:03 AM [facility] ABSOLUTE EOSINOPHILS 0.1 <0.5 thou/cu mm 11/08/2024 9:03 AM [facility] ABSOLUTE BASOPHILS 0.0 <0.3 thou/cu mm 11/08/2024 9:03 AM [facility] Blood BLOOD SPECIMEN / Unknown Butterfly / Unknown 11/08/2024 8:02 AM T 11/08/2024 8:13 AM [facility] us Doctor Unknown HEMATOLOGY Final Result [facility] [address] [place] [address] * (ABNORMAL) PLATELET ESTIMATE (11/08/2024 8:02 AM CDT) Only the most recent of12 resultswithin the time period is included. Pathologist [facility] PLATELET ESTIMATE Platelets are clumped and appear decreased(A) Adequate, No estimate 11/08/2024 9:03 AM T [facility] Blood BLOOD SPECIMEN / Unknown Butterfly / Unknown 11/08/2024 8:02 AM CDT 11/08/2024 8:13 AM CDT us Doctor Unknown HEMATOLOGY Final Result [facility] [address] [place] [address] * (ABNORMAL) BASIC METABOLIC PANEL (11/08/2024 8:02 AM CDT) Only the most recent of4 resultswithin the time period is included. [facility] SODIUM 139 136 - 145 mmol/L 11/08/2024 8:38 AM [facility] POTASSIUM 4.4 3.5 - 5.1 mmol/L 11/08/2024 8:38 AM [facility] CHLORIDE 106 98 - 107 mmol/L 11/08/2024 8:38 AM [facility] CO2,TOTAL 20(L) 22 - 29 mmol/L 11/08/2024 8:38 AM [facility] ANION GAP 13 5 - 18 11/08/2024 8:38 AM [facility] GLUCOSE 73 70 - 99 mg/dL 11/08/2024 8:38 AM [facility] CALCIUM 8.3(L) 8.8 - 10.4 mg/dL 11/08/2024 8:38 AM [facility] Comment: Reference ranges for this test were updated on 04/04/2024 to reflect our healthy population more accurately. Reference range changes are not retroactively applied to results, but previous results using the same methodology can be interpreted in the context of the new reference range. BUN 20 8 - 23 mg/dL 11/08/2024 8:38 AM [facility] CREATININE 0.67 0.50 - 0.90 mg/dL 11/08/2024 8:38 AM [facility] BUN/CREAT RATIO 30(H) 10 - 20 8:38 AM [facility] eGFR 85(L) >90 mL/min/1. 73m2 11/08/2024 8:38 AM [facility] Comment:As of 2021, eG [...] CDT us Doctor Unknown CHEMISTRY Final Result [facility] [address] [place] [address] * (ABNORMAL) PLATELET COUNT (10/30/2024 7:10 AM CDT) Only the most recent of9 resultswithin the time period is included. PLATELET COUNT 124(L) 140 - 440 thou/cu mm 10/30/2024 9:16 AM CDT [facility] MPV 10/30/2024 9:16 AM CDT [facility] Comment:Unable to be determi noe Blood BLOOD SPECIMEN / Unknown Butterfly / Unknown 10/30/2024 7:10 AM CDT 10/30/2024 7:39 AM CDT us Bibiana Bettencourt MD HEMATOLOGY Final Res ult [facility] [address] [place] [address], * HEMOGLOBIN (10/30/2024 7:10 AM CDT) Only the most recent of8 resultswithin the time period is included. HEMOGLOBIN 13.2 12.0 - 16.0 g/dL 10/30/2024 9:16 AM CDT [facility] MCV 93 80 - 100 fL 10/30/2024 9:16 AM CDT [facility] Blood BLOOD SPECIMEN / Unknown Butterfly / Unknown 10/30/2024 7:10 AM CDT 10/30/2024 7:39 AM CDT Bibiana Bettencourt MD HEMATOLOGY Final Res ult Performing Organization Address City/[facility]/ZIP Co de Phone Number [facility] [address] [place] [address], [place] * (ABNORMAL) APTT (10/30/2024 7:10 AM CDT) Only the most recent of21 resultswithin the time period is included. APTT 69(H) 25 - 36 sec 10/30/2024 7:58 AM CDT [facility] Blood BLOOD SPECIMEN / Unknown Butterfly / Unknown 10/30/2024 7:10 AM CDT 10/30/2024 7:39 AM CDT Narrative [facility] - 10/30/2024 7:58 AM CDT Therapeutic Range: 59-89 seconds Bibiana Bettencourt MD HEMATOLOGY Final Res ult [facility] [address] [place] [address], [place] * GLUCOSE METER (10/30/2024 6:30 AM CDT) Only the most recent of42 resultswithin the time period is included. GLUCOSE METER 78 65 - 100 mg/dL 10/30/2024 10:52 AM CDT [facility] Blood BLOOD SPECIMEN / Unknown 10/30/2024 6:30 AM CDT 10/30/2024 10:52 AM CDT Bibiana Bettencourt MD CHEMISTRY Final Res ult Performing Organization Address [facility] Co de Phone Number [facility] [address] [address], [place] * SCAN-CARDIAC STRIP (10/30/2024 2:01 AM CDT) us Scanner OTHER Final Result * (ABNORMAL) WBC AM (10/29/2024 12:04 PM CDT) Only the most recent of8 resultswithin the time period is included. WHITE BLOOD COUNT 12.5(H) 4.5 - 11.0 thou/cu mm 10/29/2024 3:53 PM CDT [facility] NRBC 0.0 % 10/29/2024 3:53 PM CDT [facility] ABS NRBC 0.0 thou /cu mm 10/29/2024 3:53 PM CDT [facility] Blood BLOOD SPECIMEN / Unknown Venipuncture / Unknown 10/29/2024 12:04 PM CDT 10/29/2024 12:55 PM CDT Bibiana Bettencourt MD HEMATOLOGY Final Res ult Performing Organization Address [facility] Co de Phone Number [facility] [address] [address], [place] * SCAN-CARDIAC STRIP (10/29/2024 6:00 AM CDT) [...] clips obtained. 2.1 minutes of fluoroscopy time. George Carroll MD FLUOROSCOPY Final Res ult * EXTRA TUBE BLUE (10/28/2024 10:26 AM CDT) Only the most recent of3 resultswithin the time period is included. Blood BLOOD SPECIMEN / Unknown Extra Tube / Unknown 10/28/2024 10:26 AM CDT 10/28/2024 10:32 AM CDT Bibiana Bettencourt MD LABORATORY Final Res ult Performing Organization Address [facility] Co de Phone Number [facility] [address] [place] [address], * (ABNORMAL) Sodium AM (10/28/2024 8:33 AM CDT) Only the most recent of3 resultswithin the time period is included. SODIUM 133(L) 136 - 145 mmol/L 10/28/2024 9:09 AM CDT [facility] Blood BLOOD SPECIMEN / Unknown Line/Port / Unknown 10/28/2024 8:33 AM CDT 10/28/2024 8:45 AM CDT Bibiana Bettencourt MD CHEMISTRY Final Res ult Performing Organization Address [facility] Co de Phone Number [facility] [address] [place] [address], * SCAN-CARDIAC STRIP (10/28/2024 12:58 AM CDT) [...] 10/27/24. EF 67% on 12/15/2023. AP 5.1%, BRUSHER OPERATOR 0.4%. LRL at 50 bpm. Estimated 7.5 years battery longevity remaining. Indication for Pacemaker: AV Node dysfunction; new LBBB post TAVR Primary MD: Janelle Crawford MD Primary Oil Exploration Engineer: Lc Emerson MD Implanting MD: Virgil Hernandez MD DEVICE DATA Snout Puller Medtronic: Model: Adapta ADDRL Implant Date 02/10/2016 LEAD DATA Atrial Lead: Snout Puller Medtronic: Model: [id number] - 45 cm Implant Date 02/10/2016 RV Lead: Snout Puller Medtronic: Model: [id number] - 52 cm Implant Date 02/10/2016 Visit location: [facility] Reason For Evaluation: MD Request- low [...] Routine follow up: Every 4 months via [employer] (manual send) with annual Alamo each September. Meri Torres RN Nurse Clinician II [facility] Pacemaker/ICD Clinic [phone] us Patel Delgado MD CARDIAC SERVICES OR D Final Result * SCAN-CARDIAC STRIP (10/27/2024 11:02 AM CDT) us Scanner OTHER Final Result * (ABNORMAL) TROPONIN T (HS) ONE TIME (10/27/2024 9:53 AM CDT) Only the most recent of2 resultswithin the time period is included. TROPONIN T HS 52(H) 6-10 ng/L ng/L 10/27/2024 10:28 AM CDT [facility] Blood BLOOD SPECIMEN / Unknown Non-Lab Venipuncture / Unknown 10/27/2024 9:53 AM CDT 10/27/2024 10:02 AM CDT Narrative [facility] - 10/27/2024 10:28 AM CDT hs-cTnT [...] risk in emergency department patient population. us Trevon Larson MD CHEMISTRY Final Result Performing Organization Address City/[facility] Co de Phone Number [facility] [address] [address], [place] * Lactate, Venous - MORTGAGE CLOSER (10/27/2024 9:53 AM CDT) Only the most recent of2 resultswithin the time period is included. LACTATE,VENOUS 1.8 0.5 - 2.0 mmol/L 10/27/2024 10:26 AM CDT [facility] [employer] [facility] Blood BLOOD SPECIMEN / Unknown Non-Lab Venipuncture / Unknown 10/27/2024 9:53 AM CDT 10/27/2024 10:02 AM CDT us Lisette Carson MD CHEMISTRY Final Resul t Performing Organization Address [facility] Co de Phone Number [facility] [address] [place] [address], [place] * AMMONIA (10/27/2024 9:53 AM CDT) Only the most recent of2 resultswithin the time period is included. AMMONIA 28 16 - 60 umol/L 10/27/2024 10:26 AM CDT [facility] Blood BLOOD SPECIMEN / Unknown Non-Lab Venipuncture / Unknown 10/27/2024 9:53 AM CDT 10/27/2024 10:02 AM CDT Narrative [facility] - 10/27/2024 10:26 AM CDT 1. Sulfasalazine and its metabolite Sulfapyridine at therapeutic concentrations may lead to falsely low results. 2. Temozolomide and its metabolite MTIC may lead to falsely elevated results, and its metabolite AIC may lead to falsely low results. us Lisette Carson MD CHEMISTRY Final Resul t [facility] [address] [place] [address], * (ABNORMAL) Arterial Blood Gas - MORTGAGE CLOSER (10/27/2024 9:44 AM CDT) PH, ARTERIAL 7.44 7.35 - 7.45 10/27/2024 10:04 AM CDT [facility] PCO2, ARTERIAL 35 32 - 45 mmHg 10/27/2024 10:04 AM T [facility] PO2, ARTERIAL 121(H) 83 - 108 mmHg 10/27/2024 10:04 AM T [facility] HCO3, ARTERIAL 24 21 - 28 mmol/L 10/27/2024 10:04 AM T [facility] BASE EXCESS, ARTERIAL 0.1 -2.0 - 3.0 10/27/2024 10:04 AM T [facility] O2 SATURATION, ARTERIAL 100(H) 94 - 98 % 10/27/2024 10:04 AM T [facility] INSPIRED O2 6 10/27/2024 10:04 AM T [facility] Comment: Unit of Measure: Liters (L) if <=20; Percent (%) if >20 This is an appended report. These results have been appended to a previously final verified report. PATIENT TEMPERATURE 37.0 Degrees C 10/27/2024 10:04 AM CDT [facility] Blood ARTERIAL BLOOD SPECIMEN / Unknown Non-Lab Venipuncture / Unknown 10/27/2024 9:44 AM CDT 10/27/2024 9:51 AM CDT Bibiana Bettencourt MD CHEMISTRY Edited Re sult - Final [facility] [address] [place] [address], [place] * 12 Lead EKG - MORTGAGE CLOSER (10/27/2024 9:37 AM CDT) Only the most [...] NOW QTc 405 ms BEYOND NOW P [place] 37 degrees BEYOND NOW R [place] -49 degrees BEYOND NOW T [place] 33 degrees BEYOND NOW 10/27/2024 9:37 AM CDT 11/01/2024 12:25 PM CDT Bibiana Bettencourt MD EKG ORD Final Res ult BEYOND NOW [place], [place] * POTASSIUM (10/27/2024 7:42 AM CDT) Only the most recent of9 resultswithin the time period is included. POTASSIUM 3.7 3.5 - 5.1 mmol/L 10/27/2024 8:15 AM CDT [facility] Blood BLOOD SPECIMEN / Unknown Venipuncture / Unknown 10/27/2024 7:42 AM CDT 10/27/2024 7:48 AM CDT Bibiana Bettencourt MD CHEMISTRY Final Res ult [facility] [address] [place] [address], [place] * MAGNESIUM (10/27/2024 7:42 AM CDT) Only the most recent of8 resultswithin the time period is included. MAGNESIUM 1.6 1.6 - 2.4 mg/dL 10/27/2024 8:15 AM CDT [facility] Blood BLOOD SPECIMEN / Unknown Venipuncture / Unknown 10/27/2024 7:42 AM CDT 10/27/2024 7:48 AM CDT Bibiana Bettencourt MD CHEMISTRY Final Res ult Performing Organization Address City/[facility]/ZIP Co de Phone Number [facility] [address] [place] [address], * (ABNORMAL) COMP METABOLIC PANEL (10/27/2024 7:42 AM CDT) SODIUM 132(L) 136 - 145 mmol/L 10/27/2024 10:07 AM CDT [facility] POTASSIUM 3.7 3.5 - 5.1 mmol/L 10/27/2024 10:07 AM CDT [facility] CHLORIDE 100 98 - 107 mmol/L 10/27/2024 10:07 AM CDT [facility] CO2,TOTAL 22 22 - 29 mmol/L 10/27/2024 10:07 AM CDT [facility] ANION GAP 10 5 - 18 10/27/2024 10:07 AM CDT [facility] GLUCOSE 106(H) 70 - 99 mg/dL 10/27/2024 10:07 AM CDT [facility] CALCIUM 7.4(L) 8.8 - 10.4 mg/dL 10/27/2024 10:07 AM [facility] Comment: Reference ranges for this test were updated on 04/04/2024 to reflect our healthy population more accurately. Reference range changes are not retroactively applied to results, but previous results using the same methodology can be interpreted in the context of the new reference range. BUN 14 8 - 23 mg/dL 10/27/2024 10:07 AM [facility] CREATININE 0.72 0.50 - 0.90 mg/dL 10/27/2024 10:07 AM [facility] BUN/CREAT RATIO 19 10 - 20 10:07 AM [facility] eGFR 82(L) >90 mL/min/1. 73m2 10/27/2024 10:07 AM [facility] Comment:As of 2021, eG FR is calculated by the CKD-EPI creatinine equation without race adjustment. eGFR can be influenced by muscle mass, exercise, and diet. The reported eGFR is an estimation only and is only applicable if the renal function is stable. ALBUMIN 2.1(L) 4.0 - 4.9 g/dL 10/27/2024 10:07 AM [facility] PROTEIN,TOTAL 3.8(L) 6.0 - 8.0 g/dL 10/27/2024 10:07 AM [facility] BILIRUBIN,TOTAL 0.7 0.0 - 1.2 mg/dL 10/27/2024 10:07 AM [facility] ALK PHOSPHATASE 63 35 - 104 IU/L 10/27/2024 10:07 AM [facility] ALT (SGPT) 20 10 - 35 IU/L 10/27/2024 10:07 AM [facility] AST (SGOT) 27 10 - 35 IU/L 10/27/2024 10:07 AM [facility] Blood BLOOD SPECIMEN / Unknown Venipuncture / Unknown 10/27/2024 7:42 AM CDT 10/27/2024 7:48 AM CDT us Lisette Carson MD CHEMISTRY Final Resul t Performing Organization Address City/[facility]/ZIP Co de Phone Number [facility] [address] [place] [address], [place] * EXTRA TUBE LIGHT GREEN (10/25/2024 12:52 PM CDT) Blood BLOOD SPECIMEN / Unknown Butterfly / Unknown 10/25/2024 12:52 PM CDT 10/25/2024 12:58 PM CDT us Doctor Unknown LABORATORY Final Result Performing Organization Address [facility] Co de Phone Number [facility] [address] [place] [address], [place] * PATH TISSUE EXAM (10/25/2024 10:35 AM CDT) Case Report Pathology Report Case: [id number] Authorizing Provider: George Stuart MD Collected: 10/25/2024 1035 Ordering Location: [facility] Received: 10/25/2024 1108 [facility] Pathologist: Natalya Villar MD Specimen: Esophagus, esophgus biopsy 10/27/2024 8:38 AM CDT [facility] Final Diagnosis A) ESOPHAGUS, BIOPSY: 1. Margarita esophagitis 2. 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 Negative for reflux changes and eosinophilic esophagitis 4. Negative for columnar mucosa 10/27/2024 8:38 AM CDT [facility] ENTRAL LABORATORY at 0838 CDT Clinical Information Dysphagia. Upper GI endoscopy showed likely Margarita esophagitis. 10/27/2024 8:38 AM CDT [facility] Gross Description A) Received in formalin is a lott mucosal fragment measuring 2 mm in greatest dimension, which is entirely submitted in one cassette. It is labeled with the patient's name and designated esophagus biopsy. Samantha Maya 10/25/2024 2:42 PM 10/27/2024 8:38 AM CDT [facility] Microscopic Description The final diagnosis is based on microscopic examination of appropriate sections of all specimens. 10/27/2024 8:38 AM CDT [facility] Additional Information Interpreted at [facility] - [address] [facility] [address], [place] [address] 10/27/2024 8:38 AM CDT [facility] Tissue SPECIMEN FROM ESOPHAGUS / Unknown 10/25/2024 10:35 AM CDT 10/25/2024 11:08 AM CDT us George Stuart MD PATHOLOGY/CYTOLOGY Final Re sult [facility] [address] [place] [address], [place] * ENDOSCOPY (10/25/2024 10:08 AM CDT) 10/25/2024 10:0 8 AM CDT Narrative Transcriptions George Stuart MD - 10/25/2024 10:41 AM CDT [facility] Patient Name: Veda Francois Procedure Date: 10/25/2024 Gender: Female Date of : 1940 Admit Type: Inpatient Procedure: Upper GI endoscopy Proceduralist: George Stuart MD - [facility] Indications/Pre-Op Diagnosis: Dysphagia Medications: Propofol per Anesthesia Procedure Description: Risk of bleeding, infection, perforation, need for surgery and alternatives discussed. The endosocpe [id number] was introduced through the mouth, and advanced [...] electronically. Note Initiated On: 10/25/2024 10:08 AM George Stuart MD PROCEDURE ORD Final Resul t * (ABNORMAL) BLOOD GAS,VENOUS (10/24/2024 9:51 PM CDT) PH, VENOUS 7.45(H) 7.32 - 7.43 10/24/2024 10:05 PM CDT [facility] PCO2, VENOUS 37(L) 41 - 51 mmHg 10/24/2024 10:05 PM CDT [facility] PO2, VENOUS 58(H) 35 - 40 mmHg 10/24/2024 10:05 PM CDT [facility] HCO3,VENOUS 26 22 - 29 mmol/L 10/24/2024 10:05 PM CDT [facility] BASE EXCESS, VENOUS, POCT 1.8 -2.0 - 3.0 10/24/2024 10:05 PM CDT [facility] O2 SATURATION, VENOUS 93(H) 70 - 75 % 10/24/2024 10:05 PM CDT [facility] PATIENT TEMPERATURE 37.0 Degrees C 10/24/2024 10:05 PM CDT [facility] Blood VENOUS BLOOD SPECIMEN / Unknown Diversion Device / Unknown 10/24/2024 9:51 PM CDT 10/24/2024 9:56 PM CDT us Bibiana Bettencourt MD CHEMISTRY Final Res ult [facility] [address] [place] [address], [place] * CT HEAD BRAIN WO (10/24/2024 [...] bilateral lens implants. Procedure Note Sindy Buckley, DO - 10/24/2024 For Patients: As a [...] MD @ 10/24/2024 7:18:50 PM (Electronically Signed) us Bibiana Bettencourt MD CT Final Res ult * HEPARIN LEVEL (10/24/2024 6:19 PM CDT) HEPARIN LEVEL 0.81 See Comment U/mL 10/24/2024 7:03 PM CDT [facility] Blood BLOOD SPECIMEN / Unknown Diversion Device / Unknown 10/24/2024 6:19 PM CDT 10/24/2024 6:31 PM CDT Narrative [facility] - 10/24/2024 7:03 PM CDT [facility] [...] HEMATOLOGY Final Res ult Performing Organization Address [facility] de Phone Number [facility] [address] [address], [place] * (ABNORMAL) Creatinine AM (10/24/2024 7:36 AM CDT) Only the most recent of3 resultswithin the time period is included. eGFR 85(L) >90 mL/min/1.7 3m2 10/24/2024 8:45 AM CDT [facility] Comment:As of 2021, eG FR is calculated by the CKD-EPI creatinine equation without race adjustment. eGFR can be influenced by muscle mass, exercise, and diet. The reported eGFR is an estimation only and is only applicable if the renal function is stable. CREATININE 0.67 0.50 - 0.90 mg/dL 10/24/2024 8:45 AM CDT [facility] Blood BLOOD SPECIMEN / Unknown Butterfly / Unknown 10/24/2024 7:36 AM CDT 10/24/2024 8:17 AM CDT us Bibiana Bettencourt MD CHEMISTRY Final Res ult Performing Organization Address [facility] Co de Phone Number [facility] [address] * (ABNORMAL) CBC W PLT NO DIFF (10/23/2024 4:20 AM T) Only the most recent of2 resultswithin the time period is included. WHITE BLOOD COUNT 10.5 4.5 - 11.0 thou/cu mm 10/23/2024 5:02 AM [facility] RED BLOOD COUNT 3.53(L) 4.00 - 5.20 mil/cu mm 10/23/2024 5:02 AM [facility] HEMOGLOBIN 11.6(L) 12.0 - 16.0 g/dL 10/23/2024 5:02 AM [facility] HEMATOCRIT 33.6 33.0 - 51.0 % 10/23/2024 5:02 AM [facility] MCV 95 80 - 100 fL 10/23/2024 5:02 AM [facility] MCH 32.9 26.0 - 34.0 pg 10/23/2024 5:02 AM [facility] MCHC 34.5 32.0 - 36.0 g/dL 10/23/2024 5:02 AM [facility] RDW 14.3 11.5 - 15.5 % 10/23/2024 5:02 AM [facility] PLATELET COUNT 205 140 - 440 thou/cu mm 10/23/2024 5:02 AM [facility] MPV 11.6(H) 6.5 - 11.0 fL 10/23/2024 5:02 AM [facility] NRBC 0.0 % 10/23/2024 5:02 AM [facility] ABS NRBC 0.0 thou /cu mm 10/23/2024 5:02 AM [facility] Blood BLOOD SPECIMEN / Unknown Venipuncture / Unknown 10/23/2024 4:20 AM CDT 10/23/2024 4:26 AM CDT George Carroll MD HEMATOLOGY Final Res t Performing Organization Address [facility] de Phone Number [facility] [address] [address], [place] * PROTIME-INR (10/23/2024 4:20 AM CDT) Only the most recent of2 resultswithin the time period is included. INR 1.1 <1.3 10/23/2024 4:43 AM CDT [facility] PROTIME 12.4 10.6 - 12.4 sec 10/23/2024 4:43 AM CDT [facility] Blood BLOOD SPECIMEN / Unknown Venipuncture / Unknown 10/23/2024 4:20 AM CDT 10/23/2024 4:26 AM CDT Narrative [facility] - 10/23/2024 4:43 AM CDT [...] George Carroll MD HEMATOLOGY Final Res ult Performing Organization Address [facility] de Phone Number [facility] [address] [address], [place] * [place] VENOUS LOWER EXTREMITY BILATERAL [...] included. ACANTHOCYTES Few 10/22/2024 9:57 PM CDT [facility] ELLIPTOCYTES Few 10/22/2024 9:57 PM CDT [facility] RBC COMMENT Present(A) RBC morphology appears normal, RBC morphology within normal limits for newborns. 10/22/2024 9:57 PM CDT [facility] WBC REACTIVE LYMPHS Present 10/22/2024 9:57 PM CDT [facility] Blood BLOOD SPECIMEN / Unknown Butterfly / Unknown 10/22/2024 8:16 PM CDT 10/22/2024 8:22 PM CDT us Susie LÓPEZ HEMATOLOGY Final R esult [facility] [address] [place] [address] * ECHO TTE COMPLETE WO CONTRAST (10/06/2024 10:53 AM CDT) AORTIC VALVE MEAN PG 14 mmHg EJECTION FRACTION 69 % PEAK TR VELOCITY 2.4 m/s LVEDD 3.7 cm EJECTION FRACTION 60 - 65% Anatomical Region Laterality Modality Ultrasound 10/06/2024 9:50 AM CDT Narrative 10/06/2024 1:28 PM CDT ECHOCARDIOGRAM VEDA FRANCOIS : 1940 83 years Study Date: 10/06/2024 9:50:25 AM Gender: F BP: 155/72 mmHg Height: 154.00 cm BSA: 1.68 m Weight: 70.00 kg Tech: PM Referring MD: RAMIN OSBORNE Site: [facility] Reading Location: [facility] IP Patient Location: Inpatient. Procedure: 2D, Color Doppler [...] . This study was interpreted by an [facility] accredited facility. Final Procedure Note Redd Gallagher MD - 10/06/2024 ECHOCARDIOGRAM VEDA FRANCOIS : 1940 83 years Study Date: 10/06/2024 9:50:25 AM Gender: F BP: 155/72 mmHg Height: 154.00 cm BSA: 1.68 m Weight: 70.00 kg Tech: PM Referring MD: RAMIN OSBORNE Site: [facility] Reading Location: [facility] Patient Location: Inpatient. Procedure: 2D, Color [...] . This study was interpreted by an [facility] accredited facility. Final us Ramin Osborne MD ECHO ORD Final Res ult * PACER TOMMIE DUAL CHAMBER WO REPROG (10/06/2024 9:19 AM CDT) Narrative Virgil Hernandez MD - 10/06/2024 9:19 AM CDT Virgil Hernandez MD 10/13/2024 10:43 AM PACEMAKER EVALUATION REPORT 10/06/2024 Summary: Normal pacemaker function. Lead trends stable. No true VT detections. EF 67% on 12/15/2023. AP 21.7%, BRUSHER OPERATOR 0.3%. Estimated 7.5 years battery longevity remaining. Indication for Pacemaker: AV Node dysfunction; new LBBB post TAVR Primary MD: Janelle Crawford MD Primary Oil Exploration Engineer: Lc Emerson MD Implanting MD: Virgil Hernandez MD DEVICE DATA Snout Puller Medtronic: Model: Adapta [id number] Implant Date 02/10/2016 LEAD DATA Atrial Lead: Snout Puller Medtronic: Model: 5076 - 45 cm Implant Date 02/10/2016 RV Lead: Snout Puller Medtronic: Model: 5076 - 52 cm Implant [...] Routine follow up: Every 4 months via [employer] (manual send) with annual [place]amo each September. Baljit Jo, RN Nurse Clinician II [facility] Pacemaker/ICD Clinic [phone] us Virgil Hernandez MD CARDIAC SERVICES ORD Fin al Result * PHOSPHORUS (10/06/2024 12:52 AM CDT) PHOSPHORUS 3.3 2.5 - 4.5 mg/dL 10/06/2024 10:13 AM CDT [facility] Blood BLOOD SPECIMEN / Unknown Venipuncture / Unknown 10/06/2024 12:52 AM CDT 10/06/2024 1:06 AM CDT us Jose Luis Sung Marta DO CHEMISTRY Final Result [facility] [address] [place] [address], [place] * (ABNORMAL) UA W/ SEDIMENT EXAM REFLEXED PER CRITERIA (10/05/2024 2:55 PM CDT) COLOR Yellow Yellow Color 10/05/2024 3:03 PM T [facility] CLARITY Clear Clear Clarity 10/05/2024 3:03 PM [facility] SPECIFIC GRAVITY,URINE >=1.030(A) 1.010, 1.015, 1.020, 1.025 10/05/2024 3:03 PM [facility] PH,URINE 5.5 6.0, 7.0, 8.0, 5.5, 6.5, 7.5, 8.5 10/05/2024 3:03 PM [facility] UROBILINOGEN, QUALITATIVE Normal Normal EU/dl 10/05/2024 3:03 PM [facility] PROTEIN, URINE Negative Negative mg/dL 10/05/2024 3:03 PM [facility] GLUCOSE, URINE Negative Negative mg/dL 10/05/2024 3:03 PM [facility] KETONES,URINE Negative Negative mg/dL 10/05/2024 3:03 PM [facility] BILIRUBIN,URI NE Negative Negative 10/05/2024 3:03 PM [facility] OCCULT BLOOD,URINE Negative Negative 10/05/2024 3:03 PM [facility] NITRITE Negative Negative 10/05/2024 3:03 PM [facility] LEUKOCYTE ESTERASE Negative Negative 10/05/2024 3:03 PM [facility] Urine URINE SPECIMEN / Unknown Non-Blood / Unknown 10/05/2024 2:55 PM CDT 10/05/2024 3:00 PM CDT Adrian Jose MD URINE Final Result Performing Organization Address [facility]/ZIP Co de Phone Number [facility] [address] [place] [address] * COVID-19 MOLECULAR (10/05/2024 2:51 PM CDT) Pathologist [facility] COVID 19 [place] MOLECULAR Not detected Not detected 10/05/2024 3:15 PM CDT [facility] TESTING LABORATORY [facility] 10/05/2024 3:15 PM CDT [facility] Comment:Specimen submitted t o [facility] for testing. Other SPECIMEN FROM NASOPHARYNGEAL STRUCTURE / Unknown Non-Blood / Unknown 10/05/2024 2:51 PM CDT 10/05/2024 2:54 PM CDT Adrian Jose MD MICROBIOLOGY Final Result Performing Organization Address [facility] Co de Phone Number [facility] [address] [place] [address] * INFLUENZA A/B PCR (10/05/2024 2:51 PM CDT) [facility] INFLUENZA A PCR NOT Detected 10/05/2024 3:15 PM CDT [facility] INFLUENZA B PCR NOT Detected 10/05/2024 3:15 PM CDT [facility] Other SPECIMEN FROM NASOPHARYNGEAL STRUCTURE / Unknown Non-Blood / Unknown 10/05/2024 2:51 PM CDT 10/05/2024 2:54 PM CDT Adrian Jose MD MICROBIOLOGY Final Result Performing Organization Address [facility]/ZIP Co de Phone Number [facility] [address] [place] [address] * XR CHEST 1 VIEW PORTABLE (10/05/2024 [...] 6-10 ng/L ng/L 10/05/2024 2:00 PM CDT [facility] Blood BLOOD SPECIMEN / Unknown Butterfly / Unknown 10/05/2024 1:23 PM CDT 10/05/2024 1:28 PM CDT [facility] - 10/05/2024 2:00 PM CDT hs-cTnT [...] population. Adrian Jose MD CHEMISTRY Final Result Performing Organization Address [facility]/ZIP Co de Phone Number [facility] [address] [place] [address] * TSH WITH REFLEX (10/05/2024 1:23 PM CDT) [facility] TSH 2.73 0.27 - 4.20 uIU/mL 10/05/2024 2:00 PM CDT [facility] Blood BLOOD SPECIMEN / Unknown Butterfly / Unknown 10/05/2024 1:23 PM CDT 10/05/2024 1:28 PM CDT Narrative [facility] - 10/05/2024 2:00 PM CDT In Adults, TSH values between 5.00 and 10.00 uIU/ml do not necessarily indicate the presence of Hypothyroidism. Correlation with clinical findings such as presence of goiter and/or Thyroperoxidase (TPO) Antibody may be helpful. For more information please refer to DOUGLAS 2004; 291: 228-238. Adrian Jose MD CHEMISTRY Final Result Performing Organization Address [facility] Co de Phone Number [facility] [address] [place] [address] * ETHANOL SERUM OR PLASMA (10/05/2024 1:23 PM CDT) [facility] ETHANOL <0.010 <0.010 g/dL 10/05/2024 2:00 PM CDT [facility] Blood BLOOD SPECIMEN / Unknown Butterfly / Unknown 10/05/2024 1:23 PM CDT 10/05/2024 1:28 PM CDT Adrian Jose MD CHEMISTRY Final Result Performing Organization Address [facility] Co de Phone Number [facility] [address] [place] [address] * (ABNORMAL) PRO-BNP (10/05/2024 1:23 PM CDT) Only the most recent of2 resultswithin the time period is included. [facility] PRO-BNP 1,529(H) <450 pg/mL 10/05/2024 2:04 PM CDT [facility] Blood BLOOD SPECIMEN / Unknown Butterfly / Unknown 10/05/2024 1:23 PM CDT 10/05/2024 1:28 PM CDT [facility] LABORATORY - 10/05/2024 2:04 PM CDT The [...] Adrian Jose MD SEND OUTS Final Result [facility] [address] [place] [address] * (ABNORMAL) HEPATIC FUNCTION PANEL (10/05/2024 1:23 PM CDT) ALBUMIN 3.5(L) 4.0 - 4.9 g/dL 10/05/2024 2:00 PM CDT [facility] PROTEIN,TOTAL 5.5(L) 6.0 - 8.0 g/dL 10/05/2024 2:00 PM CDT [facility] BILIRUBIN,TOTAL 1.2 0.0 - 1.2 mg/dL 10/05/2024 2:00 PM T [facility] BILIRUBIN,DIRECT 0.6(H) 0.0 - 0.2 mg/dL 10/05/2024 2:00 PM CDT [facility] BILIRUBIN,INDIRE CT 0.6 0.2 - 0.8 mg/dL 10/05/2024 2:00 PM CDT [facility] ALK PHOSPHATASE 104 35 - 104 IU/L 10/05/2024 2:00 PM CDT [facility] ALT (SGPT) 23 10 - 35 IU/L 10/05/2024 2:00 PM CDT [facility] AST (SGOT) 35 10 - 35 IU/L 10/05/2024 2:00 PM CDT [facility] Blood BLOOD SPECIMEN / Unknown Butterfly / Unknown 10/05/2024 1:23 PM CDT 10/05/2024 1:28 PM CDT Adrian Jose MD CHEMISTRY Final Result Performing Organization Address City/[facility]/ZIP Co de Phone Number [facility] [address] [place] [address] * TYPE AND SCREEN ONLY (10/05/2024 1:22 PM CDT) Pathologist [facility] ABORH A Rh Positive 10/05/2024 2:21 PM CDT [facility] BLOOD BANK ANTIBODY SCREEN Negative Negative 10/05/2024 2:21 PM CDT [facility] BLOOD BANK SPECIMEN EXPIRATION DATE/TIME 10/08/24 23:59 10/05/2024 2:21 PM CDT [facility] BLOOD BANK Blood BLOOD SPECIMEN / Unknown Butterfly / Unknown 10/05/2024 1:22 PM CDT 10/05/2024 1:28 PM CDT Adrian Jose MD BLOOD BANK Final Result Performing Organization Address City/[facility]/ZIP Co de Phone Number [facility] BLOOD BANK [address] [place] [address] * (ABNORMAL) XR DXA BONE DENSITY 2 [...] Patients: Results are automatically released to your Message Bus (Siklu) account once available, in compliance with federal regulations. This means that you may see your results before your provider has had a chance to review them. Please allow 2-3 business days for your provider to comment on the results. XR DXA Bone Mineral Density (BMD) EXAM LOCATION: [facility] [address] [address] PATIENT NAME: Veda Francois DATE OF : 1940 EXAM DATE: [...] two scanners are made by the same rotating field assembler. PROCEDURE: Dual-energy x-ray absorptiometry performed with routine [...] Health Maintenance Insurance [employer] MED[employer] ADV[employer]AGE 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 Specialty Start Date End Date Janelle Crawford MD [address] [facility] [place] [address] PCP - General Internal Medicine 05/13/15 Hailee Mclean, RN [address] [address] Pals Specialist - [facility] Registered Nurse 03/31/16 [facility], Richard [address] [address] 12/20/19 Loida Carrillo RN [address] [address] Pals Specialist - [facility] Registered Nurse 03/21/21 [facility], Richard [address] [place] [address] 10/07/24 Liz Garcia RN [address] [address] Pals Specialist - [facility] 10/14/21
== END 2024-11-18 21:34 | disposition home or self-care (01) ==
LOC: AMB 11-20 11:33
PROVIDERS: Visit Provider Family Medicine
DX: R56.9 Unspecified convulsions (principal); R06.09 Other forms of dyspnea; R19.7 Diarrhea, unspecified; R11.10 Vomiting, unspecified
CPT/HCPCS: A0425; A0427

== ENCOUNTER 2024-11-18 22:23 | Emergency (ER) | payer OTHER, SELFPAY ==
--- OUTSIDE RECORDS SUMMARY | 2024-10-25 19:00 | XMS_ITS | Continuity of Care Document ---
Author Organization [facility] Address [address] [address] [place] [address] Phone Care Team Providers Care Cold Water Machine Operator Name Role Phone Paola MCKEON, Tenisha [...] nystatin 50 million unit oral powder take ([id number]) by oral route 4 times every day [...] Providers Copied on Encounter Subsqt Inpt Moderate [facility], [address] [address], [place], [id number], [place] tel:[phone] [facility] No Information 5 Paola Steven. [address] [place] [address], [address], [id number], [place]. tel:[phone] Referring Provider: Tenisha Guevara NUCLEAR MONITORING TECHNICIAN, [address] [place] [address] 500, [facility] [place], [address] . tel:[phone] [facility] [place], [address] [address], [place], [id number], [place] tel:[phone] [facility] No Information 5 Min MD Vazquez. [address] [place] [address], [facility] [address], [place], [address], [place]. tel:[phone] Referring Provider: George PARISH X, [address] [place] [address] [address], [facility] [place], [address] . tel:[phone] Init Inpt E&M Moderate [facility], [address] [address], [place], [id number], [place] tel:[phone] [facility] No Information 5 Constantin Harrington. [address] [facility], [address], [id number], [place]. [phone] Referring Provider: Janelle Crawford MD, [address] [facility] [place], [address]. tel:[phone] [facility], [address] [address], [place], [address], [place] tel:[phone] [facility] 0 Ibrahima Woods. [address] [place] [address], [id number], [place]. tel:[phone] Subsqt Hosp-da E&m Stable 15 M [facility], [address] [address], [place], [address], [place] tel:[phone] [facility] No Information 0 Ibrahima Woods. [facility] [address], [place], [address], [place]. tel:[phone] Referring Provider: Zoey Maldonado DO, [address], [place], [address]. tel:[phone] Init Hosp-da E&m Mod Severity [facility], [address] [address], [place], [address], [place] tel:[phone] [facility] No Information 0 Ibrahima Woods. [address] [facility], [facility] [address], [place], [address], [place]. tel:[phone] Referring Provider: Zoey Maldonado DO, [address], [place], [address]. tel:[phone] [facility], [address] [address], [place], [address], [place] tel:[phone] [facility] No Information 201 7 Randi Romero. [address] [place] [address], [address], [id number], [place]. tel:[phone] Referring Provider: Janelle Crawford MD, [address] [place] [address], [address]. tel:[phone] [facility], [address] [address], [place], [address], [place] tel:[phone] [facility] Esophageal dysphagia 7 No Information Offic/outpt E&m Estab Minor [facility], [address] [address], [facility] [place], [address], [place] tel:[phone] [facility] GI Symptoms or Concerns (chief complaint) Esophageal strictureDiet nery counseling and surveillanceE ssential (primary) hypertension 7 No Information Referring Provider: Janelle Crawford MD, [address] [place] [address], [address]. tel:[phone] [facility], [address] [address], [facility] [place], [address], [place] tel:[phone] [facility] No Information Jul- 7 Fran Marshall. [address] [place] [address], [facility] 500, [place], [place], [address], [place]. tel:[phone] Referring Provider: Renetta Peters MD, [facility] 500, [place], [address] . tel:[phone] Offic Cons New/estab Mod [facility], [address] [address], [facility] [place], [address], [place] tel:[phone] [facility] GI Symptoms or Concerns (chief complaint) Esophageal dysphagiaDiet nery counseling and surveillanceE ssential (primary) hypertension 7 Fidencio Oconnor. [facility], [facility] 500, [place], [place], [address], [place]. tel:[phone] Referring Provider: Janelle Crawford MD, [address] [place] [address], [address]. tel:[phone] Family History Family Member Type Diagnosis Age [...] Provider Payers Payer name Insurance type Covered republican ID Authorjoaquina erick(s) Jacki [facility] 16 [id number] Social History Type Description Quantity Date Captured [...] four years. She apparently did see an film mounter and did have a laryngoscope completed, however, [...] foods and medications. She reports seeing an film mounter at one point who said she did [...]
--- OUTSIDE RECORDS SUMMARY | 2024-10-25 19:00 | XMS_ITS | Continuity of Care Document ---
Author Organization [facility] Address [address] [address] [place] [address] Phone Care Team Providers Care Order Checker Name Role Phone Paola MCKEON, Tenisha Unavailable [...] nystatin 50 million unit oral powder take ([id number]) by oral route 4 times every day [...] Providers Copied on Encounter Subsqt Inpt Moderate [facility] [place], [address] [address], [place], [id number], [place] tel:[phone] [facility] No Information 5 Paola Steven. [address] [place] [address], [address], [id number], [place]. tel:[phone] Referring Provider: Tenisha Guevara TEENAGE BABYSITTER, [address] [place] [address], [place], [address] . tel:[phone] [facility] [place], [address] [address], [place], [id number], [place] tel:[phone] [facility] No Information 5 Min MD Vazquez. [address] [place] [address], [facility] [address], [place], [id number], [place]. tel:[phone] Referring Provider: George PARISH X, [address] [place] [address] [address], [place], [address] . tel:[phone] Init Inpt E&M Moderate [facility] [place], [address] [address], [place], [id number], [place] tel:[phone] [facility] No Information 5 Constantin Harrington. [address] [facility], [address], [id number], [place]. [phone] Referring Provider: Janelle Crawford MD, [address] [place], [address]. tel:[phone] [facility], [address] [address], [place], [id number], [place] tel:[phone] [facility] 0 Ibrahima Woods. [address] [place] [address], [id number], [place]. tel:[phone] Subsqt Hosp-da E&m Stable 15 M [facility], [address] [address], [place], [id number], [place] tel:[phone] [facility] No Information 0 Ibrahima Woods. [facility] [address], [place], [id number], [place]. tel:[phone] Referring Provider: Zoey Maldonado DO, [address], [place], [address]. tel:[phone] Init Hosp-da E&m Mod Severity [facility], [address] [address], [place], [id number], [place] tel:[phone] [facility] No Information 0 Ibrahima Woods. [address] [facility], [facility] [address], [place], [id number], [place]. tel:[phone] Referring Provider: Zoey Maldonado DO, [address], [place], [address]. tel:[phone] [facility], [address] [address], [place], [id number], [place] tel:[phone] [facility] No Information 201 7 Randi Romero. [address] [place] [address], [address], [id number], [place]. tel:[phone] Referring Provider: Janelle Crawford MD, [address] [place] [address], [address]. tel:[phone] [facility], [address] [address], [place], [id number], [place] tel:[phone] [facility] Esophageal dysphagia 7 No Information Offic/outpt E&m Estab Minor [facility], [address] [address], [facility] [place], [id number], [place] tel:[phone] [facility] GI Symptoms or Concerns (chief complaint) Esophageal strictureDiet nery counseling and surveillanceE ssential (primary) hypertension 7 No Information Referring Provider: Janelle Crawford MD, [address] [place] [address], [address]. tel:[phone] [facility], [address] [address], [facility], [facility] [place], [id number], [place] tel:[phone] [facility] No Information Jul- 7 Fran [place]. [address] [place] [address], [facility] 500, [place], [place], [id number], [place]. tel:[phone] Referring Provider: Renetta Petesr MD, [facility] 500, [place], [address] . tel:[phone] Offic Cons New/estab Mod [facility], [address] [address], [facility] [place], [id number], [place] tel:[phone] [facility] GI Symptoms or Concerns (chief complaint) Esophageal dysphagiaDiet nery counseling and surveillanceE ssential (primary) hypertension 7 Fidencio Oconnor[address] [facility]1 [facility], [facility] 500, [place], [place], [id number], [place]. tel:[phone] Referring Provider: Janelle Crawford MD, [address] [place] [address], [address]. tel:[phone] Family History Family Member Type Diagnosis Age [...] type Covered republican ID Authorjoaquina erick(s) Jacki [facility] 16 [id number] Social History Type Description Quantity Date Captured [...] four years. She apparently did see an master mechanic and did have a laryngoscope completed, however, [...] foods and medications. She reports seeing an master mechanic at one point who said she did [...]
[2024-11-18] VITALS (13 sets, daily range): BP systolic 109–149; BP diastolic 76–98; PULSE 85–95; RESP 14–20; TEMP 36.6; O2SAT 93–98; BMI 35.4
--- NOTE | 2024-11-18 22:34 | ED.GENADULT ---
HPI - General Adult General Date Seen: 11/18/24 Chief complaint: GI Bleed Stated complaint: possible GI bleed Time Seen by Provider: 11/18/24 22:38 Source: patient and RN notes reviewed Mode of arrival: ambulatory Limitations: no limitations History of Present Illness HPI narrative: EMS is bringing this 84-year-old female in from [facility] where they were called for an unresponsive spell. She was seen here on November 15, had an unresponsive spell and did get sent back. She had full workup with involvement of Neurology from [place] on November 15. Head CT was done at that time without acute pathology, full complement of labs. Patient was observed overnight without any concerning change. It is noted in the discharge that when she had recently been hospitalized at [place], she had an episode of altered mental status and orthostasis which precipitated a code blue. She reportedly responded to fluids. She is noted to have severe protein calorie malnutrition. She is had [place] esophagitis diagnosed by endoscopy in September, treated with a 14 day course of fluconazole. She had recently been diagnosed with a left lower extremity DVT on October 23, started on Eliquis. She does have a history of a GI bleed in 2019. She has chronic thrombocytopenia. I was asked by staff to come attend to her right after arrival with EMS. EMS reports that they were called to [facility] for episode unresponsiveness, possible choking. She was reportedly complaining after eating dinner tonight, stating she choked on her food, complaining of a hard time breathing. She then had an episode where her eyes rolled back in her head and was not responding, similar to her spell this past which prompted her visit on 11/15. EMS was called. She was reported to be having bloody diarrhea tonight as well, EMS noted that they saw blood. There was report of abdominal pain that patient has had long-term and is not new. EMS found her to be responsive inappropriate to questions in route. She is reportedly on Eliquis and vitamins. She is a relatively new arrival to [facility]. Related Data Home Medications ?Medication ?Instructions ?Recorded ?Confirmed acetaminophen 500 mg tablet 1,000 mg PO BID 11/15/24 11/18/24 apixaban 5 mg tablet 5 mg PO BID 11/15/24 11/18/24 cholecalciferol (vitamin D3) 25 1,000 unit PO DAILY 11/15/24 11/18/24 mcg (1,000 unit) tablet (Vitamin D3) peg 400-propylene glycol (PF) 0.4 1 drp ophthalmic (eye) BID PRN 11/15/24 11/18/24 %-0.3 % eye drops in a dropperette (Systane (PF)) vit C 250 mg-vit E 90 mg-zinc 40 1 tab PO BID 11/15/24 11/18/24 mg-copper 1 [id number] capsule (PreserVision AREDS-2) pediatric multivitamin 2 tab PO DAILY 11/16/24 11/18/24 (Flintstones Multivitamin chewable tablet) Allergies Allergy/AdvReac Type Severity Reaction Status Date / Time codeine Allergy Unknown Verified 11/15/24 12:46 morphine Allergy Unknown Verified 11/15/24 12:46 ondansetron Allergy Unknown Verified 11/15/24 12:46 Sulfa (Sulfonamide Allergy Unknown Verified 11/15/24 12:46 Antibiotics) warfarin (From Coumadin) Allergy Unknown Verified 11/15/24 12:46 Review of Systems Status of ROS: Reports: unobtainable due to mental status PFSH PFS Medical History Cataract ?H26.9 - Unspecified cataract (ICD-10) TIA (transient ischemic attack) ?G45.9 - Transient cerebral ischemic attack, unspecified (ICD-10) Essential hypertension ?I10 - Essential (primary) hypertension (ICD-10) Osteoarthritis ?M19.90 - Unspecified osteoarthritis, unspecified site (ICD-10) Macular degeneration ?H35.30 - Unspecified macular degeneration (ICD-10) Candidal esophagitis ?B37.81 - Candidal esophagitis (ICD-10) Esophageal stenosis ?K22.2 - Esophageal obstruction (ICD-10) DVT (deep venous thrombosis) ?I82.409 - Acute embolism and thrombosis of unspecified deep veins of unspecified lower extremity (ICD-10) GI bleed ?K92.2 - Gastrointestinal hemorrhage, unspecified (ICD-10) Left bundle branch block ?I44.7 - Left bundle-branch block, unspecified (ICD-10) Aortic stenosis ?I35.0 - Nonrheumatic aortic (valve) stenosis (ICD-10) Thrombocytopenia ?D69.6 - Thrombocytopenia, unspecified (ICD-10) Surgical History History of knee replacement ?Z96.659 - Presence of unspecified artificial knee joint (ICD-10) S/P KEIRY (total abdominal hysterectomy) ?Z90.710 - Acquired absence of both cervix and uterus (ICD-10) Pacemaker ?Z95.0 - Presence of cardiac pacemaker (ICD-10) H/O gastric bypass ?Z98.84 - Bariatric surgery status (ICD-10) S/P TAVR (transcatheter aortic valve replacement) ?Z95.2 - Presence of prosthetic heart valve (ICD-10) Social History Narrative: Was living independently until September 2024, then hospitalized at [facility] and d/c'd to [facility] ([facility]). Moved into [address] [place] [address] on 11/15, then presented to ER for AMS. Former smoker, quit 1967 (10 pack year history), no ETOH. Son Amador is Medical Decision maker. What is your current living situation?: I presently have a place to live Problems where you live: no known problems Problems where you live details: no known problems In the past 12 months, utilities in danger of being shut off: no In past 12 months, lack of transportation kept you from medical appts, meetings, work, or getting things needed for daily living: no In the past 12 mos, have been you worried that your food would run out before you had money to buy more?: never true In the past 12 mos, the food you bought just didn't last and you didn't have money to buy more?: never true How often do you have a drink containing alcohol: never AUDIT-C Alcohol total score: 0 Non-prescribed substance use: denies use Caffeine: No How often does anyone, including family, friends and others, physically hurt you: never How often does anyone, including family, friends and others, insult or talk down to you: never How often does anyone, including family, friends and others, threaten you with harm: never How often does anyone, including family, friends and others, scream or curse at you: never Exam Const: Vital Signs, click to edit/add: Vital Signs - 24 hr 11/18/24 22:38 11/18/24 22:40 11/18/24 22:45 Temperature 97.9 F Pulse Rate 85 Pulse Rate [Pulse Oximeter] 91 Respiratory Rate 20 14 Blood Pressure 139/83 Blood Pressure [Ri ght Upper Arm] 129/98 H Pulse Oximetry 95 95 94 Oxygen Delivery Me thod Room Air Room Air 11/18/24 22:46 11/18/24 22:51 11/18/24 23:00 Temperature Pulse Rate 86 95 90 Pulse Rate [Pulse Oximeter] Respiratory Rate 15 16 14 Blood Pressure 148/87 H Blood Pressure [Ri ght Upper Arm] Pulse Oximetry 94 94 95 Oxygen Delivery Me thod 11/18/24 23:01 11/18/24 23:11 11/18/24 23:15 Temperature Pulse Rate 89 90 Pulse Rate [Pulse Oximeter] Respiratory Rate 14 14 19 Blood Pressure 149/85 H 148/89 H Blood Pressure [Ri ght Upper Arm] Pulse Oximetry 95 96 Oxygen Delivery Me thod 11/18/24 23:30 11/18/24 23:31 11/18/24 23:32 Temperature Pulse Rate 89 87 92 Pulse Rate [Pulse Oximeter] Respiratory Rate 16 19 18 Blood Pressure 109/76 Blood Pressure [Ri ght Upper Arm] Pulse Oximetry 96 98 93 Oxygen Delivery Me thod 11/18/24 23:45 11/19/24 00:00 11/19/24 00:01 Temperature Pulse Rate 86 82 76 Pulse Rate [Pulse Oximeter] Respiratory Rate 15 13 13 Blood Pressure 97/69 Blood Pressure [Ri ght Upper Arm] Pulse Oximetry 94 96 96 Oxygen Delivery Me thod 11/19/24 00:01 11/19/24 00:01 11/19/24 00:15 Temperature Pulse Rate 76 76 85 Pulse Rate [Pulse Oximeter] Respiratory Rate 13 13 16 Blood Pressure 97/69 97/69 Blood Pressure [Ri ght Upper Arm] Pulse Oximetry 96 96 97 Oxygen Delivery Me thod 11/19/24 00:30 11/19/24 00:31 11/19/24 00:45 Temperature Pulse Rate 85 86 81 Pulse Rate [Pulse Oximeter] Respiratory Rate 15 14 14 Blood Pressure 99/78 Blood Pressure [Ri ght Upper Arm] Pulse Oximetry 97 97 Oxygen Delivery Me thod 11/19/24 00:59 11/19/24 01:00 11/19/24 01:01 Temperature Pulse Rate 79 72 75 Pulse Rate [Pulse Oximeter] Respiratory Rate 13 14 14 Blood Pressure 113/75 112/84 Blood Pressure [Ri ght Upper Arm] Pulse Oximetry 96 96 96 Oxygen Delivery Me thod 11/19/24 01:15 11/19/24 02:39 11/19/24 02:40 Temperature 97.9 F 97.9 F Pulse Rate 78 Pulse Rate [Pulse Oximeter] 91 85 Respiratory Rate 14 14 14 Blood Pressure Blood Pressure [Ri ght Upper Arm] 129/98 H 115/74 Pulse Oximetry 95 95 Oxygen Delivery Me thod Room Air Patient seems to be staring off, minimally responsive but still independently breathing. No twitching or tonic clonic activity noted. Her heart rate and pulse are normal. She has a normal blood pressure. Skin without rash but she looks quite pale. Her eyes have a conjugate gaze, sclera clear. Lungs are clear anteriorly, no wheezing or crackles or tachypnea. CV regular rate and rhythm, no murmur. Abdomen seems to be soft, nondistended, do not feel any masses. She has got edema in her left hand noted, bandaging around the left forearm. She does start groaning and moaning, she does pull away when nursing staff are tempting to get an IV in her, states ?ouch?. She seems to be more alert after the attempt to the IV start. Did ask EMS if they had paperwork, they do and it does say full code. Patient is not in a position to converse about this at this time, is not really giving meaningful full conversation. At 10:28 p.m., did call day and her son as the primary emergency contact on her paperwork, he did not answer. Did call the [id number] at 10:29 p.m. who was 2nd in line to call. Had a discussion about her current situation, did review whether not they felt they really wanted full intubation and CPR if she would have further decompensation. She states that she does not feel her [id number] would want that. We certainly will continue to work to see what we can stabilize. It is reported that she had bleeding at the senior care, we will presumably work to stabilize a GI bleed. She may need transfer. If she would becomes so unstable that she would need intubation or CPR to intervene, we will not do so, this is the final decision by [id number]. She is waiting for Amador to come home, they will make their way here. She states he probably did not answer because he was driving. Documenting provider has reviewed patient's vital signs: yes Course Course ED Course: This patient may have considerable GI bleed by her presentation, limited responsiveness. Vitals are seemingly stable. She does not seem to be having active seizure. Per family, we are not going to intervene with compressions or intubation. Will do what I can for stabilization. EMS staff is reporting was sounds like significant lower GI blood loss, will give patient TXA as she is on Eliquis. Will get labs, do type and screen. Will initiate a L of IV fluids. Reevaluation(s) Time of Reevaluation #1: 23:56 Reevaluation #1: Family is here now. Patient is just resting, she is asleep, not awakening with our discussion. Reviewed with them that we are not seen evidence of a GI bleed here. She did have a formed bowel movement, there was a little blood, nursing staff noted probable hemorrhoid but no active bleeding. Her bottom is quite raw, they did put barrier cream on. We have discussed that I have seen evidence of these spells of unresponsiveness, looks like this is been happening. She likely is declining from what I am seeing in the records and her presentation tonight. We did discuss code status again. I do feel that in her current condition, she really may not have the presence of mind to be able to make this advanced decision making. We did discuss what it would look like to do CPR and intubated her at her age and her debilitated state. They are comfortable with DNR DNI for our purposes here and I do support that. We will see what her labs show. Her chest x-ray has been done and read and not showing any thing necessarily acute. Reviewed that her hemoglobin is stable, we really are not seen evidence of a GI bleed. I am not completely sure with these unresponsive spells are but likely reflect her ongoing decline. Have reviewed with them that we do not unfortunately have any bed capacity for her here, hospital status is full due to staffing. Her son did tell me that she had been having constipation problems at the senior care. They had done enemas, sounds like they may have had to do a manual disimpaction. Did review with them that they could have had some unintended trauma or mucosal irritation from that, she did have a good formed stool here. There was a little bleeding but no active GI bleeding noted. Her perineum was noted to be quite raw. They note that she has had significant weight loss due to inability to eat. Time of Reevaluation #2: 00:54 Reevaluation #2: Have reviewed with patient's son and [id number] that her hemoglobin is 12.1, still normal, was 12.4 on November 16. We have seen no evidence of active GI bleeding here. She has these spells of unresponsiveness, do not seem to be active seizure. Her lactate was normal here. Her son comments that something is wrong and no once listening. I did review with him that she has had significant workups, unfortunately with people as they were coming to the end of their life, we can see worsening of medical symptoms, inability to intervene in change the course. I feel that this patient is likely in general decline in failure to thrive. I do not see anything here tonight that is fixable. In a perfect world with bed availability, I would put her in under observation. We do not have that capacity. I have offered to try to find other hospitals where they may take her for further observation. They have declined this. We will send her back to the senior care. Vital Signs Vital signs: Initial Vital Signs Pulse Oximetry 95 11/18/24 22:38 Vital Signs Pulse Oximetry 95 11/18/24 22:38 Temperature 97.9 F 11/19/24 02:40 Pulse Rate 85 11/19/24 02:40 Respiratory Rate 14 11/19/24 02:40 Blood Pressure 115/74 11/19/24 02:40 Pulse Oximetry 95 11/19/24 02:40 Oxygen Delivery Method Room Air 11/19/24 02:40 Medications Administered Medications: Discontinued Medications Generic Name Dose Route Start Last Admin Trade Name Freq PRN Reason Stop Dose Admin Sodium Chloride 1,000 mls @ 1,000 mls/hr 11/18/24 22:39 11/18/24 23:45 0.9 % Sodium Chloride 1000 Ml IV 11/18/24 23:38 Infused .Q1H DONAVON Infusion Pantoprazole Sodium 40 mg 11/18/24 22:38 11/18/24 23:01 Pantoprazole Sodium 40 Mg Inj IVP 11/18/24 22:39 40 mg ONCE ONE Administration Tranexamic Acid 1,000 mg 11/18/24 22:38 11/18/24 23:01 Tranexamic Acid 100 Mg/Ml Inj IV 11/18/24 22:39 1,000 mg ONCE ONE Administration Medical Decision Making Lab Data Lab results reviewed: Yes I reviewed the patient's lab results Labs: Lab Results 11/18/24 11/18/24 Range/Units 22:42 23:39 WBC 10.80 (4.50-11.00) K/uL RBC 3.77 L (4.00-5.20) m/uL Hgb 12.1 (12.0-16.0) gm/dL Hct 37.0 (33.0-51.0) % MCV 98 (80-100) fL MCH 32 (26-34) pg MCHC 33 (32-36) gm/dL RDW Coeff of Raven 15.8 H (11.5-15.5) % Plt Count 95 L (140-440) K/uL Neut % (Auto) 75.1 H (42.0-72.0) % Lymph % (Auto) 17.6 L (20-44) % [place] % (Auto) 6.2 (0.0-11.0) % Eos % (Auto) 0.6 (0.0-7.0) % Baso % (Auto) 0.1 (0.0-3.0) % Neut # (Auto) 8.10 H (1.7-7.0) K/uL Lymph # (Auto) 1.90 (0.90-2.90) K/uL [place] # (Auto) 0.70 (0.00-0.90) K/UL Eos # (Auto) 0.07 (0.00-0.50) K/uL Baso # (Auto) 0.01 (0.00-0.30) K/uL Abs Immat Gran (auto) 0.04 (0.00-0.30) K/uL Imm/Tot Granulo (auto) 0.4 % VBG pH 7.454 H (7.32-7.43) VBG pCO2 31 L (40-50) mmHG VBG pO2 73.8 H (25-47) mmHG VBG HCO3 22 (21-28) mmol/L Sodium 136 (135-149) mmol/L Potassium 3.7 (3.6-5.1) mmol/L Chloride 112 (96-114) mmol/L Carbon Dioxide 22 (20-32) mmol/L Anion Gap 2 L (7-15) mEq/L BUN 24 (7-30) mg/dL Creatinine 0.7 (0.5-1.5) mg/dL Estimated Creat Clear 33.41 Estimated GFR 84 ml/min Glucose 126 H (60-115) mg/dL Lactate 1.7 (0.5-1.9) mmol/L Calcium 7.3 L (8.4-10.6) mg/dL Total Bilirubin 0.6 (0.1-1.5) mg/dL AST 32 (12-35) U/L ALT 23 (4-35) U/L Alkaline Phosphatase 96 (40-150) U/L Troponin I 0.03 (0.01-0.04) ng/mL Total Protein 4.6 L (6.0-8.3) g/dL Albumin 2.1 L (3.3-5.0) g/dL Stool Occult Blood Positive A (Negative) Blood Type A Positive Antibody Screen NEGATIVE ECG Data Attestation: I personally reviewed and interpreted this ECG as follows: (Sinus tachycardia with first-degree AV block, premature atrial complexes seen. Rate is 113 beats per minute. No active ischemia noted.) Prior ECG tracings: available for review Discharge Plan Discharge Clinical Impression: Generalized weakness, Unresponsive episode, BRBPR (bright red blood per rectum) Patient Disposition: Xfer [facility] Discharge Location: [facility] Condition: Unchanged Additional Instructions: Patient is noted to have some bleeding thought to be external from rectal irritation. She is noted to have skin irritation/breakdown on her bottom/perineum. Do recommend barrier care and good bowel regimen for avoidance of constipation or diarrhea. If concerning bleeding is noted, please have her re-evaluated. Her spells of unresponsiveness do not seem ot be cardiac arrythmia nor seizure (normal lactate). I do wonder if she is in general decline without any defineable reversable issue. If there is development of specific issues, think there may be infectious diagnosis developing, we will be happy to re-evaluate. Prescriptions: No Action apixaban 5 mg tablet 5 mg PO BID cholecalciferol (vitamin D3) [Vitamin D3] 25 mcg (1,000 unit) tablet 1,000 unit PO DAILY acetaminophen 500 mg tablet 1,000 mg PO BID PreserVision AREDS-2 250-90-40-1 mg capsule 1 tab PO BID Systane (PF) 0.4-0.3 % dropperette 1 drp ophthalmic (eye) BID PRN Flintstones Multivitamin Tablet,Chewable 2 tab PO DAILY Stand Alone Forms: [facility] Info Instructions
[2024-11-18] MEDS: 0.9 % SODIUM CHLORIDE 1000 ml 1,000 ML IV (22:42)
[2024-11-18 22:45] LABS: HCO3 VBG 22 mmol/L (21-28); Lactate* 1.7 mmol/L (0.5-1.9); PCO2 VBG 31 mmHG (40-50); PO2 VBG 73.8 mmHG (25-47); pH VBG 7.454 (7.32-7.43)
[2024-11-18 22:46] LABS: Basophils Absolute Auto 0.01 K/uL (0.00-0.30); Basophils Percent Auto 0.1 % (0.0-3.0); Eosinophils Absolute Auto 0.07 K/uL (0.00-0.50); Eosinophils Percent Auto 0.6 % (0.0-7.0); Hemoglobin* 12.1 gm/dL (12.0-16.0); Immature Granulocytes Abs Auto 0.04 K/uL (0.00-0.30); Immature Granulocytes Pct Auto 0.4 %; Lymphocytes Percent Auto 17.6 % (20-44); Mean Corpuscular HGB Conc 33 gm/dL (32-36); Mean Corpuscular Hemoglobin 32 pg (26-34); Mean Corpuscular Volume 98 fL (80-100); Monocytes Percent Auto 6.2 % (0.0-11.0); Neutrophils Percent Auto 75.1 % (42.0-72.0); Platelet Count* 95 K/uL (140-440); RDW Coefficient of Variation % 15.8 % (11.5-15.5); Red Blood Count 3.77 m/uL (4.00-5.20)
--- NOTE | 2024-11-18 22:49 | CRLHL7_ITS ---
For Patients: As a result of the Cures Act, medical imaging exams and procedure reports are released immediately into your electronic medical record. You may view this report before your referring provider. If you have questions, please contact your health care provider. Indication: Question aspiration pneumonia Technique: Single view of the chest Comparison: Chest radiograph performed 11/15/2024 Findings/Impression: Low lung volumes. Compared to examination from 11/15/2024, there is no focal consolidation or new or worsening airspace disease appreciated. Dictated by Collin Levin MD @ 11/18/2024 11:09:25 PM (Electronically Signed)
[2024-11-18] MEDS: PANTOPRAZOLE SODIUM 40 MG INJ IVP (23:01)
[2024-11-18] MEDS: TRANEXAMIC ACID 100 MG/ML INJ 1000 MG IV (23:01)
[2024-11-18 23:03] LABS: Albumin* 2.1 g/dL (3.3-5.0); Chloride* 112 mmol/L (96-114); Sodium* 136 mmol/L (135-149)
[2024-11-18 23:04] LABS: Potassium* 3.7 mmol/L (3.6-5.1)
[2024-11-18 23:06] LABS: Alanine Aminotransferase* 23 U/L (4-35); Alkaline Phosphatase* 96 U/L (40-150); Anion Gap 2 mEq/L (7-15); Aspartate Amino Transferase* 32 U/L (12-35); Bilirubin Total* 0.6 mg/dL (0.1-1.5); Blood Urea Nitrogen* 24 mg/dL (7-30); Carbon Dioxide* 22 mmol/L (20-32); Creatinine* 0.7 mg/dL (0.5-1.5); Est. Creatinine Clearance* 33.41; Estimated Glomerular Filt Rate 84 ml/min; Total Protein* 4.6 g/dL (6.0-8.3)
[2024-11-18 23:07] LABS: Calcium* 7.3 mg/dL (8.4-10.6); Glucose* 126 mg/dL (60-115)
[2024-11-18 23:19] LABS: Troponin I* 0.03 ng/mL (0.01-0.04)
[2024-11-18 23:29] LABS: Slide Review Reflex No
[2024-11-18 23:43] LABS: Fecal Occult Blood* Positive (Negative)
[2024-11-19] VITALS (12 sets, daily range): BP systolic 97–129; BP diastolic 69–98; PULSE 72–91; RESP 13–16; TEMP 36.6; O2SAT 95–97
== END 2024-11-19 02:49 | disposition home or self-care (01) ==
PROVIDERS: Emergency Provider Family Medicine
DX: R40.4 Transient alteration of awareness (principal); R53.1 Weakness; K62.5 Hemorrhage of anus and rectum
CPT/HCPCS: 36415; 71045; 80053; 82270; 82803; 83605; 84484; 85025; 86850; 86900; 86901; 93005; 94761; 96374; 96375; 99284; 99285; J2470; J7030

== ENCOUNTER 2024-11-19 02:15 | Outpatient (CLI) | payer OTHER, SELFPAY | END 2024-11-19 02:16 | disposition home or self-care (01) | LOC: AMB 11-20 12:19 | PROVIDERS: Visit Provider Family Medicine | DX: R53.1 Weakness (principal); K62.5 Hemorrhage of anus and rectum | CPT/HCPCS: A0425; A0428 ==